=== PATIENT | female | born 1960 | race Caucasian/White ===

== ENCOUNTER 2023-03-07 20:37 | Inpatient (IN) ==
[2023-03-07] MEDS ORDERED: SODIUM CHLORIDE 0.9% 1000ML 1,000 ML IV SCH (20:45)
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
[2023-03-07] MEDS ORDERED: ACETAMINOPHEN 1,000 MG/100 ML VIAL IV STA (20:59)
[2023-03-07 21:21] LABS: HCO3 VBG 29 mmol/L; PCO2 VBG 46 mmHg (38-50); PO2 VBG 57 mmHg
[2023-03-07] MEDS ORDERED: AZITHROMYCIN 500 MG in DEXTROSE 5% 250 ML IV ONE (21:50)
[2023-03-07] MEDS ORDERED: cefTRIAXone SODIUM 2,000 MG/70 ML BAG IV STA (21:50)
[2023-03-07 21:59] LABS: Albumin Level 3.5 gm/dl (3.4-5.0); BUN Creatinine Ratio 15.8 (10-20); Bilirubin Direct 0.3 mg/dl (0-0.2); Bilirubin,Total 0.9 mg/dl (0.2-1.0); Creatinine Clr Calc Pharmacy 60.8 ml/min; Est GFR (African American) 73.9 ml/min; Est GFR (Non-African American) 63.7 ml/min; Magnesium 1.8 mg/dl (1.7-2.4); Potassium 4.1 mmol/L (3.5-5.1); Total Protein 7.5 gm/dl (6.0-8.3)
[2023-03-07 22:02] LABS: Troponin I High Sensitivity 17.8 pg/ml (0-14)
[2023-03-07 22:11] LABS: INR 1.1 (0.9-1.1); Partial Thromboplastin Ratio 0.8; Partial Thromboplastin Time 22.9 Seconds (21.0-31.0); Prothrombin Time 11.5 Seconds (9.0-12.0)
[2023-03-07 22:17] LABS: Basophils # (auto) 0.07 K/uL (0-0.2); Basophils % (auto) 0.4 %; Hematocrit (blood only) 52.5 % (37.0-47.0); Hemoglobin 17.3 g/dl (12.0-16.0); Immature Granulocytes # (auto) 0.16 K/uL (0.01-0.20); Immature Granulocytes % (auto) 0.8 %; Lymphocytes # (auto) 2.03 K/uL (1.2-3.4); Lymphocytes % (auto) 10.5 %; Mean Corpuscular Hemoglobin 30.6 pg (25.0-34.0); Mean Corpuscular Volume 92.9 fL (80.0-100.0); Mean Platelet Volume 10.7 fL (9.4-12.4); Monocytes # (auto) 1.31 K/uL (0.11-0.59); Monocytes % (auto) 6.8 %; Neutrophils # (auto) 15.73 K/uL (1.40-6.50); Neutrophils % (auto) 81.5 %; Platelet Count 216 K/uL (130-400); RDW Coefficient of Variation 13.6 % (11.5-14.5); RDW Standard Deviation 46.4 fL (36.4-46.3); Red Blood Count 5.65 M/uL (4.20-5.40)
[2023-03-07 22:22] LABS: Appearance Urine Cloudy (Clear); Bacteria Urine Automated 4+ (Negative); Bilirubin Urine Negative (Negative); Blood Urine 2+ (Negative); Cast Urine Automated 0 /lpf (0-5); Color Urine Yellow; Epithelial Cell Urine Auto >30 /lpf (0-5); Glucose Urine UA 2+ (Negative); Ketones Urine 1+ (Negative); Leukocyte Esterase Urine 1+ (Negative); Nitrite Urine Positive (Negative); Protein Urine 2+ (Negative); Urobilinogen Urine Negative (Negative)
[2023-03-07] MEDS ORDERED: IBUPROFEN 800 MG TAB PO STA (22:25)
[2023-03-07] MEDS ORDERED: fentaNYL citrate PF 100 MCG/2 ML VIAL IV STA (22:25)
[2023-03-07] MEDS ORDERED: methylPREDNISolone 125 MG/2 ML VIAL IV STA (22:50)
[2023-03-07] MEDS ORDERED: methylPREDNISolone 20 MG in SYRINGE 0 ML IV STA (22:50)
[2023-03-07] MEDS: MAGNESIUM SULFATE / D5W 1 GM/100 ML BAG IV SCH (23:34)
[2023-03-07] MEDS ORDERED: FUROSEMIDE INJ 20 MG/2 ML VIAL IV ONE (23:55)
[2023-03-07] MEDS ORDERED: ALBUMIN 25% 25 GM/100 ML VIAL IV ONE (23:55)
[2023-03-08] MEDS ORDERED: CEFEPIME 2,000 MG/20 ML VIAL IV STA (00:41)
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
[2023-03-08] MEDS ORDERED: PROMETHAZINE HCL 12.5 MG in SODIUM CHLORIDE 0.9% 50 ML IV PRN (00:48)
[2023-03-08] MEDS: NICOTINE 7 MG/24 HR TDSY TD SCH (01:21)
[2023-03-08] MEDS ORDERED: GLUCAGON FOR INJ 1 MG VIAL SQ PRN (02:41)
[2023-03-08] MEDS ORDERED: CARBOHYDRATES FOR HYPOGLYCEMIA PO PRN (02:41)
[2023-03-08] MEDS ORDERED: INSULIN ASPART PER UNIT CHARGE SC SCH ×2 (02:41→08:00)
[2023-03-08] MEDS ORDERED: GLUCOSE 40% GEL 15 GM TUBE PO PRN (02:41)
[2023-03-08] MEDS ORDERED: XOPENEX/ATROVENT 1.25mg/0.5MG NEB COMBO NEB SCH (02:41)
[2023-03-08] MEDS ORDERED: GLUCOSE 10 TAB/TUBE PO PRN (02:41)
[2023-03-08] MEDS ORDERED: DEXTROSE 50% 50 ML SYRINGE IV PRN (02:41)
[2023-03-08] MEDS ORDERED: ACETAMINOPHEN 325 MG TAB PO PRN (02:41)
[2023-03-08] MEDS: MAGNESIUM SULFATE / D5W 1 GM/100 ML BAG IV SCH (02:51)
[2023-03-08] MEDS: IPRATROPIUM BROMIDE NEB SOLN 0.02% 2.5 ML VIAL INH SCH ×2 (03:08→08:04)
[2023-03-08] MEDS: LEVALBUTEROL 1.25 MG/3 ML NEB NEB SCH ×2 (03:08→08:04)
--- NOTE | 2023-03-08 03:19 | CT Scan Report ---
Exam(s): CT HEAD Without Contrast EXAM: CT Head Without Intravenous Contrast CLINICAL HISTORY: Reason for exam: barillas. TECHNIQUE: Axial computed tomography images of the head/brain without intravenous contrast. CTDI is 27.94 mGy and DLP is 1461.17 mGy-cm. Automated exposure control was utilized for the study. A dose lowering technique was utilized adhering to the principles of ALARA. COMPARISON: 03/20/2012 FINDINGS: Brain: Minimal periventricular white matter changes, related to microangiopathy. No hemorrhage. Ventricles: Unremarkable. No ventriculomegaly. Bones/joints: Unremarkable. No acute fracture. Soft tissues: Unremarkable. Sinuses: Unremarkable as visualized. No acute sinusitis. Mastoid air cells: Unremarkable as visualized. No mastoid effusion. IMPRESSION: Minimal periventricular white matter changes, related to microangiopathy. Electronically signed by: Nikunj Mariano M.D. 03/08/23 03:17 AM
--- NOTE | 2023-03-08 03:26 | CT Scan Report ---
Exam(s): CT ABDOMEN + PELVIS Without Contrast EXAM: CT Abdomen and Pelvis Without Intravenous Contrast CLINICAL HISTORY: Reason for exam: r abd/flank pain. TECHNIQUE: Axial computed tomography images of the abdomen and pelvis without intravenous contrast. CTDI is 36.43 mGy and DLP is 546.36 mGy-cm. Automated exposure control was utilized for the study. A dose lowering technique was utilized adhering to the principles of ALARA. COMPARISON: 04/13/2021 FINDINGS: Lung bases: Unremarkable. No mass. No consolidation. Mediastinum: Moderate hiatal hernia. ABDOMEN: Liver: Unremarkable. Gallbladder and bile ducts: Status post cholecystectomy. No ductal dilation. Pancreas: Unremarkable. No ductal dilation. Spleen: Unremarkable. No splenomegaly. Adrenals: Unremarkable. No mass. Kidneys and ureters: Right perinephric stranding with mild right hydronephrosis and periureteral inflammation consistent with either a recently passed stone or pyelonephritis. Mild left hydronephrosis and hydroureter to the level of the bladder. No renal or ureteral calculi are identified. Stomach and bowel: Unremarkable. No obstruction. No mucosal thickening. PELVIS: Appendix: No findings to suggest acute appendicitis. Bladder: Unremarkable. No stones. Reproductive: Unremarkable as visualized. ABDOMEN and PELVIS: Intraperitoneal space: Unremarkable. No free air. No significant fluid collection. Bones/joints: No acute fracture. No dislocation. Soft tissues: Unremarkable. Vasculature: Unremarkable. No abdominal aortic aneurysm. Lymph nodes: Unremarkable. No enlarged lymph nodes. IMPRESSION: 1. Right perinephric stranding with mild right hydronephrosis and periureteral inflammation consistent with either a recently passed stone or pyelonephritis. 2. Mild left hydronephrosis and hydroureter to the level of the bladder. Electronically signed by: Nikunj Mariano M.D. 03/08/23 03:25 AM
[2023-03-08] MEDS: INSULIN ASPART PER UNIT CHARGE SC SCH ×7 (05:11→21:03)
[2023-03-08] MEDS ORDERED: LANTUS PER UNIT CHARGE SQ SCH ×2 (05:45→09:00)
[2023-03-08 05:46] LABS: Hematocrit (blood only) 45.8 % (37.0-47.0); Hemoglobin 15.1 g/dl (12.0-16.0); Mean Corpuscular Hemoglobin 30.6 pg (25.0-34.0); Mean Corpuscular Volume 92.9 fL (80.0-100.0); Mean Platelet Volume 10.3 fL (9.4-12.4); Platelet Count 187 K/uL (130-400); RDW Coefficient of Variation 13.6 % (11.5-14.5); RDW Standard Deviation 46.7 fL (36.4-46.3); Red Blood Count 4.93 M/uL (4.20-5.40); White Blood Count 17.42 K/ul (4.8-10.8)
[2023-03-08 06:06] LABS: BUN Creatinine Ratio 17.7 (10-20); Calcium 8.2 mg/dl (8.6-10.3); Creatinine Clr Calc Pharmacy 51.1 ml/min; Est GFR (African American) 59.9 ml/min; Est GFR (Non-African American) 51.7 ml/min; Potassium 4.2 mmol/L (3.5-5.1)
[2023-03-08 06:08] LABS: Basophils # (auto) 0.03 K/uL (0-0.2); Basophils % (auto) 0.2 %; Immature Granulocytes # (auto) 0.14 K/uL (0.01-0.20); Immature Granulocytes % (auto) 0.8 %; Lymphocytes # (auto) 0.76 K/uL (1.2-3.4); Lymphocytes % (auto) 4.4 %; Monocytes # (auto) 0.51 K/uL (0.11-0.59); Monocytes % (auto) 2.9 %; Neutrophils # (auto) 15.98 K/uL (1.40-6.50); Neutrophils % (auto) 91.7 %
[2023-03-08] MEDS ORDERED: PHARMACY GLYCEMIC MGMT CONSULT PRN (07:41)
--- NOTE | 2023-03-08 08:01 | XRay Report ---
SINGLE VIEW CHEST CLINICAL HISTORY: Sepsis. FINDINGS: 2 AP, portable, upright chest radiographs are compared to study dated 04/13/2021. The heart is enlarged noting atherosclerotic calcification of the thoracic aorta. There is pulmonary vascular c ongestion. Scarring/atelectasis is noted at the lung bases. The lungs and pleural spaces are clear. N o pneumothorax is seen. The skeletal structures are osteopenic. The bony thorax is grossly intact. Fu mahogany hardware is noted in the lower cervical spine. IMPRESSION: Cardiomegaly with pulmonary vascular congestion. ACT 112: Negative or not required by law. Electronically signed by: Abraham Acevedo M.D. 03/08/2023 7:59 AM
[2023-03-08] MEDS ORDERED: PANTOprazole 40 MG TAB PO SCH (09:00)
[2023-03-08] MEDS ORDERED: predniSONE 20 MG TAB PO SCH (09:00)
[2023-03-08] MEDS: ASPIRIN 81 MG ECTAB PO SCH (09:19)
[2023-03-08] MEDS: ATORVASTATIN 40 MG TAB PO SCH (09:24)
[2023-03-08] MEDS: DOXYCYCLINE HYCLATE 100 MG CAP PO SCH ×2 (09:25→21:03)
[2023-03-08] MEDS: ENOXAPARIN INJ 40 MG/0.4 ML SYR SQ SCH (09:27)
[2023-03-08 09:59] LABS: A calco-baum cmplx NotReported Not Detected (NotDetected); Bact fragilis Not Reported Not Detected (NotDetected); C auris Not Reported Not Detected (NotDetected); CTX-M Resistant Gene Not Detected (NotDetected); Calbicans Not Reported Not Detected (NotDetected); Candida glabrata Not Reported Not Detected (NotDetected); Candida krusei Not Reported Not Detected (NotDetected); Cneoformans/gatti Not Reported Not Detected (NotDetected); Cparapsilosis Not Reported Not Detected (NotDetected); Ctropicalis Not Reported Not Detected (NotDetected); E cloacae compx Not Reported Not Detected (NotDetected); Efaecalis Not Reported Not Detected (NotDetected); Efaecium Not Reported Not Detected (NotDetected); Enterobacterales DETECTED (NotDetected); Enterobacterales Not Reported DETECTED (NotDetected); Escherichia coli Not Reported DETECTED (NotDetected); H influenzae Not Reported Not Detected (NotDetected); IMP Resistant Gene Not Detected (NotDetected); K aerogenes Not Reported Not Detected (NotDetected); KPC Resistant Gene Not Detected (NotDetected); Koxytoca Not Reported Not Detected (NotDetected); Kpneumoniae grp Not Reported Not Detected (NotDetected); Lmonocyt Not Reported Not Detected (NotDetected); N meningitidis Not Reported Not Detected (NotDetected); NDM Resistant Gene Not Detected (NotDetected); OXA 48 Like Resistant Gene Not Detected (NotDetected); P aeruginosa Not Reported Not Detected (NotDetected); Proteus spp Not Reported Not Detected (NotDetected); Salmonella spp Not Reported Not Detected (NotDetected); Smarcescens Not Reported Not Detected (NotDetected); Staph lugdunensis Not Reported Not Detected (NotDetected); Staph spp. Not Reported Not Detected (NotDetected); Staphaureus Not Reported Not Detected (NotDetected); Staphepi Not Reported Not Detected (NotDetected); Stenmaltophilia Not Reported Not Detected (NotDetected); Strep agal(GrpB) Not Reported Not Detected (NotDetected); Strep pneum Not Reported Not Detected (NotDetected); Strep pyog (GrpA) Not Reported Not Detected (NotDetected); Strep spp Not Reported Not Detected (NotDetected); VIM Resistant Gene Not Detected (NotDetected); mcr-1 Colistin Resistant Gene Not Detected (NotDetected)
[2023-03-08] MEDS: CEFEPIME 2,000 MG in SYRINGE 0 ML IV SCH ×2 (10:56→18:41)
--- NOTE | 2023-03-08 11:01 | Pharmacy Report ---
Pharmacy Glycemic Short Note 2 - Date of Service March 08, 2023 - Glycemic Short BSG Results (Last 24 hours): 03/07/23 03/08/23 03/08/23 21:00 05:29 05:30 Glucose 151 H POC Glucose 412 H* 387 H* 03/08/23 03/08/23 03/08/23 05:32 07:31 07:32 Glucose 423 H* POC Glucose 325 H* 349 H* OUTPATIENT ANTIDIABETIC REGIMEN: * Lantus 44 units Qam, Humalog 7 units with breakfast and dinner, 12 units with lunch * A1c 8.5% - per provider notes 02/2023 ASSESSMENT: * 62 year old admitted with worsening shortness of breath. Pharmacy consulted for glycemic management. BSGs in the upper 300s this AM. Had received a one time dose of solumedrol last evening. Prednisone ordered for this AM, discontinued by provider * Received 60 units of basal insulin this AM by provider's order. Plan to start novolog at lunch time based upon stress of 2 dosing. Anticipate BSGs to improve throughout the day with no further steroids. PLAN FOR INPATIENT GLYCEMIC CONTROL: * Hold outpatient oral diabetes medications * Basal insulin * Lantus 45 units daily - start 03/09 (home dose) * Bolus insulin * NovoLog per scale ACHS or Q6hrs while NPO * Goal Range: Low 110 mg/dL - High 140 mg/dL * Correction Factor: 25 mg/dL/unit * Nutritional / Prandial insulin per carb ratio of 1 unit per 9 grams CHO consumed
[2023-03-08] MEDS ORDERED: INSULIN HUMAN REGULAR PER UNIT 6 UNITS in SYRINGE 5.94 ML IV ONE (12:00)
--- NOTE | 2023-03-08 12:17 | Electrocardiogram Report ---
Test Reason : Blood Pressure : / mmHG Vent. Rate : 118 BPM Atrial Rate : 118 BPM P-R Int : 146 ms QRS Dur : 078 ms QT Int : 310 ms P-R-T Axes : 071 235 046 degrees QTc Int : 434 ms Sinus tachycardia Right superior axis deviation Abnormal ECG When compared with ECG of 11-APR-2019 12:13, No significant change was found Confirmed by Dustin Velazquez ([id number]) on 03/08/2023 12:16:50 PM Referred By: REFERRED SELF Confirmed By:Dustin Velazquez
--- NOTE | 2023-03-08 15:31 | Hospitalist Progress Note ---
Date of Service March 08, 2023 Assessment & Plan (1) Sepsis: Plan: Secondary to UTI, pyelonephritis, bacteremia-E. coli Urine culture: Gram-negative bacilli Blood cultures: Gram-negative bacilli Serologies positive for E. coli CT abdomen pelvis: 1. Right perinephric stranding with mild right hydronephrosis and periureteral inflammation consistent with either a recently passed stone or pyelonephritis. 2. Mild left hydronephrosis and hydroureter to the level of the bladder. Continue IV cefepime Follow-up cultures hypertension, BP stable hyperlipidemia, on statin Rx DM 2 insulin requiring, suboptimal control as of recent outpatient hemoglobin A1c of 8.5 this month Pharmacy glycemic control service consulted GERD/Aguirre's esophagus, stable on regimen ongoing tobacco abuse DVT prophylaxis Lovenox Disposition Anticipate discharge to home when medically stable Admission and Anticipated Discharge Date Admission Date: March 08, 2023 Subjective Follow-up for sepsis, right pyelonephritis, UTI, etc. Seen resting in bed, sitting up, not in distress, comfortable, pleasant States she still feels somewhat improved today compared to yesterday Still has some weakness, lower abdominal discomfort, right sided back discomfort No fevers or chills, nausea/vomiting No any other symptoms Review of Systems Review of Systems: all noted and negative except for above Physical Exam Physical Exam: General- oriented x 3, not in distress, speaks in sentences with no effort or accessory muscle use Eyes- anicteric Neck- no JVD Lungs- clear breath sounds bilaterally, no crackles/wheezing Heart- normal rate, regular rhythm; no murmurs Abdomen- normal bowel sounds, nondistended, soft (+) R CVA tenderness Extremities- no pretibial edema, no calf tenderness Neuro- alert, oriented x 3; no gross focal neurologic deficits Skin- warm & dry Results & Data Results & Data Vital Signs (Past 12 Hours) Vital Signs Temp Pulse Resp BP Pulse Ox O2 Del Method O2 Flow Rate 03/08/23 12:25 36.9 C 83 20 103/48 L 92 Nasal Cannula 2 03/08/23 08:00 Nasal Cannula 3 03/08/23 08:04 36.6 C 84 18 109/65 92 Nasal Cannula 3 03/08/23 08:04 87 18 94 Nasal Cannula 3 03/08/23 06:10 36.8 C 88 16 138/81 92 Nasal Cannula 3 all noted and reviewed including below
[2023-03-08] MEDS ORDERED: IBUPROFEN 200 MG TAB PO STA (16:52)
[2023-03-08] MEDS: PANTOprazole 40 MG TAB PO SCH (17:50)
[2023-03-08 19:36] LABS: Adenovirus PCR Not Detected (NotDetected); Bordetella parapertussis PCR Not Detected (NotDetected); Bordetella pertussis PCR Not Detected (NotDetected); Chlamydia pneumoniae PCR Not Detected (NotDetected); Coronavirus 229E PCR Not Detected (NotDetected); Coronavirus CoV-2 (COVID19)PCR Not Detected (NotDetected); Coronavirus HKU1 PCR Not Detected (NotDetected); Coronavirus NL63 PCR Not Detected (NotDetected); Coronavirus OC43PCR Not Detected (NotDetected); Human Metapneumovirus PCR Not Detected (NotDetected); Influenza A PCR Not Detected (NotDetected); Influenza B PCR Not Detected (NotDetected); Mycoplasma pneumoniae PCR Not Detected (NotDetected); Parainfluenza Virus 1 PCR Not Detected (NotDetected); Parainfluenza Virus 2 PCR Not Detected (NotDetected); Parainfluenza Virus 3 PCR Not Detected (NotDetected); Parainfluenza Virus 4 PCR Not Detected (NotDetected); Respiratory Syncytial VirusPCR Not Detected (NotDetected); Rhinovirus/Enterovirus PCR Not Detected (NotDetected)
[2023-03-08] MEDS: oxyCODONE HCL IR 5 MG TAB (IMMEDIATE RELEASE) PO PRN (21:06)
[2023-03-09] MEDS ORDERED: INSULIN ASPART PER UNIT CHARGE SC SCH
[2023-03-09] MEDS: oxyCODONE HCL IR 5 MG TAB (IMMEDIATE RELEASE) PO PRN ×2 (01:27→21:35)
[2023-03-09] MEDS: CEFEPIME 2,000 MG in SYRINGE 0 ML IV SCH ×2 (01:28→10:31)
[2023-03-09] MEDS: ASPIRIN 81 MG ECTAB PO SCH (08:30)
[2023-03-09] MEDS: PANTOprazole 40 MG TAB PO SCH ×2 (08:30→17:12)
[2023-03-09] MEDS: DOXYCYCLINE HYCLATE 100 MG CAP PO SCH ×2 (08:30→21:36)
[2023-03-09] MEDS: ATORVASTATIN 40 MG TAB PO SCH (08:30)
[2023-03-09] MEDS: ENOXAPARIN INJ 40 MG/0.4 ML SYR SQ SCH (08:31)
[2023-03-09 08:32] LABS: Basophils # (auto) 0.06 K/uL (0-0.2); Basophils % (auto) 0.4 %; Eosinophils # (auto) 0.09 K/uL (0-0.50); Eosinophils % (auto) 0.6 %; Hematocrit (blood only) 45.8 % (37.0-47.0); Hemoglobin 15.3 g/dl (12.0-16.0); Immature Granulocytes # (auto) 0.06 K/uL (0.01-0.20); Immature Granulocytes % (auto) 0.4 %; Lymphocytes # (auto) 1.73 K/uL (1.2-3.4); Lymphocytes % (auto) 10.7 %; Mean Corpuscular Hemoglobin 30.4 pg (25.0-34.0); Mean Corpuscular Hgb Conc 33.4 g/dL (32.0-36.0); Mean Corpuscular Volume 91.1 fL (80.0-100.0); Mean Platelet Volume 10.1 fL (9.4-12.4); Monocytes # (auto) 1.74 K/uL (0.11-0.59); Monocytes % (auto) 10.8 %; Neutrophils # (auto) 12.43 K/uL (1.40-6.50); Neutrophils % (auto) 77.1 %; Platelet Count 229 K/uL (130-400); RDW Coefficient of Variation 13.6 % (11.5-14.5); RDW Standard Deviation 45.6 fL (36.4-46.3); Red Blood Count 5.03 M/uL (4.20-5.40); White Blood Count 16.11 K/ul (4.8-10.8)
[2023-03-09] MEDS: NICOTINE 7 MG/24 HR TDSY TD SCH (08:32)
[2023-03-09] MEDS: INSULIN ASPART PER UNIT CHARGE SC SCH ×4 (08:32→21:32)
[2023-03-09 08:44] LABS: BUN Creatinine Ratio 27.6 (10-20); Calcium 8.9 mg/dl (8.6-10.3); Est GFR (African American) 82.2 ml/min; Est GFR (Non-African American) 70.9 ml/min
[2023-03-09] MEDS ORDERED: LANTUS PER UNIT CHARGE SQ SCH (09:00)
[2023-03-09] MEDS ORDERED: FUROSEMIDE INJ 20 MG/2 ML VIAL IV ONE (11:45)
--- NOTE | 2023-03-09 11:52 | Hospitalist Progress Note ---
Date of Service March 09, 2023 Assessment & Plan (1) Sepsis: Plan: -Present on admission with fever, leukocytosis (2) Acute hypoxemic respiratory failure: Plan: -77% on RA on presentation. Currently still requiring 2L NC -wean oxygen as tolerated -CXR shows pulmonary vascular congestion. Patient with coarse cough. Continue doxycycline for coverage of bronchitis. Will give 1 dose lasix 20mg IV once. On exam does not appear overloaded (3) E. coli UTI: Plan: CT abdomen pelvis: 1. Right perinephric stranding with mild right hydronephrosis and periureteral inflammation consistent with either a recently passed stone or pyelonephritis. 2. Mild left hydronephrosis and hydroureter to the level of the bladder. -On cefepime--will reduce to ceftriaxone (4) E coli bacteremia: Plan: -already on antibiotics. Will need 2 week course Plan hypertension, BP stable hyperlipidemia, on statin Rx DM 2 insulin requiring, suboptimal control as of recent outpatient hemoglobin A1c of 8.5 this month Pharmacy glycemic control service consulted GERD/Aguirre's esophagus, stable on regimen ongoing tobacco abuse nicotine patch ordered. Will ask career services officer to evaluate for cost of ni cotine patches DVT prophylaxis Lovenox Disposition Anticipate discharge to home when medically stable, likely in 2 days Admission and Anticipated Discharge Date Admission Date: March 08, 2023 Subjective Still with coarse cough, on 2L NC Reports constipation, hard stool Woke up with headache Discussed her ongoing smoking cessation efforts. She is motivated to quit but cant afford her nicotine patches Review of Systems Review of Systems: as above Physical Exam Physical Exam: Appears older than stated age, no acute distress Respiratory: coarse cough, no wheezing/rhonchi/rales Cardiovascular: regular rate and rhythm, no murmurs/rubs/gallops Gastrointestinal (Abdomen): soft, non tender, non distended Musculoskeletal: no edema Neurologic: awake, alert, spontaneously moving extremities Results & Data Results & Data Vital Signs (Past 12 Hours) Vital Signs Temp Pulse Resp BP Pulse Ox O2 Del Method O2 Flow Rate 03/09/23 08:00 Nasal Cannula 2 03/09/23 07:23 37.1 C 96 H 18 116/65 92 Nasal Cannula 3 03/09/23 03:34 36.8 C 70 20 108/70 95 Nasal Cannula 2
[2023-03-09] MEDS: DOCUSATE SODIUM 100 MG CAP PO SCH ×2 (12:31→21:36)
[2023-03-09] MEDS: LANTUS PER UNIT CHARGE SC SCH (12:46)
--- NOTE | 2023-03-09 13:09 | Pharmacy Report ---
Pharmacy Glycemic Short Note 2 - Date of Service March 09, 2023 - Glycemic Short BSG Results (Last 24 hours): 03/08/23 03/08/23 03/08/23 14:45 16:38 20:25 Glucose POC Glucose 242 H 235 H 107 H 03/09/23 03/09/23 03/09/23 00:14 05:31 05:33 Glucose POC Glucose 184 H 65 L* 67 L* 03/09/23 03/09/23 03/09/23 05:52 07:24 07:48 Glucose 199 H POC Glucose 73 219 H 03/09/23 11:45 Glucose POC Glucose 110 H OUTPATIENT ANTIDIABETIC REGIMEN: * Lantus 44 units Qam, Humalog 7 units with breakfast and dinner, 12 units with lunch * A1c 8.5% - per provider notes 02/2023 ASSESSMENT: 03/09/23 * BSGs yesterday were [phone] mg/dL. Fasting this AM was 65 mg/dL. * Patient received 106 units of insulin (60 units of basal and 46 units of bolus). * Due to low BSG, held Lantus until lunch to ensure BSG rebound. Lunch was 110 mg/dL. * Will start with half dose of Lantus or 30 units daily. * Loosen Novolog since steroid effects have decreased significantly. This aligns to weight-based stress of 2 BACKGROUND * 62 year old admitted with worsening shortness of breath. Pharmacy consulted for glycemic management. BSGs in the upper 300s this AM. Had received a one time dose of solumedrol last evening. Prednisone ordered for this AM, discontinued by provider * Received 60 units of basal insulin this AM by provider's order. Plan to start novolog at lunch time based upon stress of 2 dosing. Anticipate BSGs to improve throughout the day with no further steroids. PLAN FOR INPATIENT GLYCEMIC CONTROL: * Hold outpatient oral diabetes medications * Basal insulin * Lantus 30 units daily * Bolus insulin * NovoLog per scale ACHS or Q6hrs while NPO * Goal Range: Low 110 mg/dL - High 140 mg/dL * Correction Factor: 25 mg/dL/unit * Nutritional / Prandial insulin per carb ratio of 1 unit per 8 grams CHO consumed
[2023-03-09] MEDS: cefTRIAXone SODIUM 2,000 MG in DEXTROSE 5% 50 ML IV SCH (17:12)
[2023-03-10 07:04] LABS: Basophils # (auto) 0.07 K/uL (0-0.2); Basophils % (auto) 0.7 %; Eosinophils # (auto) 0.26 K/uL (0-0.50); Eosinophils % (auto) 2.7 %; Hematocrit (blood only) 50.9 % (37.0-47.0); Hemoglobin 16.7 g/dl (12.0-16.0); Immature Granulocytes # (auto) 0.04 K/uL (0.01-0.20); Immature Granulocytes % (auto) 0.4 %; Lymphocytes % (auto) 27.1 %; Mean Corpuscular Hemoglobin 30.5 pg (25.0-34.0); Mean Corpuscular Hgb Conc 32.8 g/dL (32.0-36.0); Mean Corpuscular Volume 92.9 fL (80.0-100.0); Mean Platelet Volume 10.3 fL (9.4-12.4); Monocytes # (auto) 1.27 K/uL (0.11-0.59); Monocytes % (auto) 13.2 %; Neutrophils # (auto) 5.36 K/uL (1.40-6.50); Neutrophils % (auto) 55.9 %; Platelet Count 235 K/uL (130-400); RDW Coefficient of Variation 13.6 % (11.5-14.5); RDW Standard Deviation 46.5 fL (36.4-46.3); Red Blood Count 5.48 M/uL (4.20-5.40)
[2023-03-10 07:24] LABS: BUN Creatinine Ratio 22.2 (10-20); Calcium 9.4 mg/dl (8.6-10.3); Creatinine Clr Calc Pharmacy 59.6 ml/min; Est GFR (African American) 70.3 ml/min; Est GFR (Non-African American) 60.6 ml/min; Potassium 4.2 mmol/L (3.5-5.1)
[2023-03-10] MEDS: ENOXAPARIN INJ 40 MG/0.4 ML SYR SQ SCH (07:49)
[2023-03-10] MEDS: DOXYCYCLINE HYCLATE 100 MG CAP PO SCH ×2 (07:49→20:45)
[2023-03-10] MEDS: DOCUSATE SODIUM 100 MG CAP PO SCH ×2 (07:50→20:45)
[2023-03-10] MEDS: PANTOprazole 40 MG TAB PO SCH ×2 (07:50→17:27)
[2023-03-10] MEDS: SACCHAROMYCES BOULARDII 250 MG CAP PO SCH (07:50)
[2023-03-10] MEDS: ASPIRIN 81 MG ECTAB PO SCH (07:50)
[2023-03-10] MEDS: ATORVASTATIN 40 MG TAB PO SCH (07:50)
[2023-03-10] MEDS: NICOTINE 7 MG/24 HR TDSY TD SCH (07:51)
[2023-03-10] MEDS: INSULIN ASPART PER UNIT CHARGE SC SCH ×4 (07:53→20:45)
[2023-03-10] MEDS: LANTUS PER UNIT CHARGE SC SCH (07:53)
--- NOTE | 2023-03-10 15:27 | Hospitalist Progress Note ---
Date of Service March 10, 2023 Assessment & Plan (1) Sepsis: Plan: -Present on admission with fever, leukocytosis (2) Acute hypoxemic respiratory failure: Plan: -77% on RA on presentation. Currently still requiring 2L NC -wean oxygen as tolerated -CXR shows pulmonary vascular congestion. Patient with coarse cough. Continue doxycycline for coverage of bronchitis. s/p 1 dose lasix 20mg IV 03/09. (3) E. coli UTI: Plan: CT abdomen pelvis: 1. Right perinephric stranding with mild right hydronephrosis and periureteral inflammation consistent with either a recently passed stone or pyelonephritis. 2. Mild left hydronephrosis and hydroureter to the level of the bladder. -Initially placed on cefepime--now on ceftriaxone. (4) E coli bacteremia: Plan: -already on antibiotics. Plan hypertension, BP stable hyperlipidemia, on statin Rx DM 2 insulin requiring, suboptimal control as of recent outpatient hemoglobin A1c of 8.5 this month Pharmacy glycemic control service consulted GERD/Aguirre's esophagus, stable on regimen ongoing tobacco abuse nicotine patch ordered. Will ask critical care educator to evaluate for cost of nicotine patches DVT prophylaxis Lovenox Disposition Anticipate discharge to home when medically stable Admission and Anticipated Discharge Date Admission Date: March 08, 2023 Subjective Feels well. Still on 2L NC. Less coughing Ambulating in room with no difficulty Review of Systems Review of Systems: as above Physical Exam Physical Exam: Appears well, pleasant and comfortable Respiratory: Breathing comfortably on NC, no wheezing/rhonchi/rales Cardiovascular: regular rate and rhythm, no murmurs/rubs Gastrointestinal (Abdomen): soft, non tender Musculoskeletal: No edema, no cyanosis Neurologic: awake, alert, spontaneously moving extremities Results & Data Results & Data Vital Signs (Past 12 Hours) Vital Signs Temp Pulse Resp BP Pulse Ox O2 Del Method O2 Flow Rate 03/10/23 11:00 36.6 C 74 16 111/68 95 Nasal Cannula 2 03/10/23 08:00 Nasal Cannula 2 03/10/23 07:17 37.1 C 74 18 103/65 96 Nasal Cannula 2 03/10/23 04:16 37.2 C 72 18 102/63 91 Nasal Cannula 2
[2023-03-10] MEDS: cefTRIAXone SODIUM 2,000 MG in DEXTROSE 5% 50 ML IV SCH (17:21)
[2023-03-11] MEDS ORDERED: INSULIN ASPART PER UNIT CHARGE SC STA (01:09)
[2023-03-11 07:02] LABS: Basophils # (auto) 0.08 K/uL (0-0.2); Basophils % (auto) 0.7 %; Eosinophils # (auto) 0.29 K/uL (0-0.50); Eosinophils % (auto) 2.7 %; Hematocrit (blood only) 48.9 % (37.0-47.0); Hemoglobin 16.4 g/dl (12.0-16.0); Immature Granulocytes # (auto) 0.07 K/uL (0.01-0.20); Immature Granulocytes % (auto) 0.6 %; Lymphocytes # (auto) 2.64 K/uL (1.2-3.4); Lymphocytes % (auto) 24.2 %; Mean Corpuscular Hemoglobin 30.1 pg (25.0-34.0); Mean Corpuscular Hgb Conc 33.5 g/dL (32.0-36.0); Mean Corpuscular Volume 89.7 fL (80.0-100.0); Mean Platelet Volume 10.3 fL (9.4-12.4); Monocytes # (auto) 1.44 K/uL (0.11-0.59); Monocytes % (auto) 13.2 %; Neutrophils # (auto) 6.37 K/uL (1.40-6.50); Neutrophils % (auto) 58.6 %; Platelet Count 244 K/uL (130-400); RDW Coefficient of Variation 13.2 % (11.5-14.5); RDW Standard Deviation 43.1 fL (36.4-46.3); Red Blood Count 5.45 M/uL (4.20-5.40); White Blood Count 10.89 K/ul (4.8-10.8)
[2023-03-11 07:24] LABS: BUN Creatinine Ratio 20.6 (10-20); Calcium 9.3 mg/dl (8.6-10.3); Creatinine Clr Calc Pharmacy 86.4 ml/min; Est GFR (African American) 107.9 ml/min; Est GFR (Non-African American) 93.1 ml/min; Potassium 3.8 mmol/L (3.5-5.1)
[2023-03-11] MEDS: SACCHAROMYCES BOULARDII 250 MG CAP PO SCH (08:04)
[2023-03-11] MEDS: ENOXAPARIN INJ 40 MG/0.4 ML SYR SQ SCH (08:04)
[2023-03-11] MEDS: ASPIRIN 81 MG ECTAB PO SCH (08:04)
[2023-03-11] MEDS: DOCUSATE SODIUM 100 MG CAP PO SCH ×2 (08:04→21:11)
[2023-03-11] MEDS: DOXYCYCLINE HYCLATE 100 MG CAP PO SCH ×2 (08:04→21:11)
[2023-03-11] MEDS: ATORVASTATIN 40 MG TAB PO SCH (08:04)
[2023-03-11] MEDS: NICOTINE 7 MG/24 HR TDSY TD SCH (08:04)
[2023-03-11] MEDS: INSULIN ASPART PER UNIT CHARGE SC SCH ×4 (08:05→21:10)
[2023-03-11] MEDS: PANTOprazole 40 MG TAB PO SCH ×2 (08:05→17:50)
[2023-03-11] MEDS: LANTUS PER UNIT CHARGE SC SCH (08:05)
--- NOTE | 2023-03-11 12:17 | Pharmacy Report ---
Pharmacy Glycemic Short Note 2 - Date of Service March 11, 2023 - Glycemic Short BSG Results (Last 24 hours): 03/10/23 03/10/23 03/11/23 16:37 20:31 01:01 Glucose POC Glucose 113 H 168 H 259 H 03/11/23 03/11/23 03/11/23 06:21 07:21 11:19 Glucose 144 H POC Glucose 130 H 182 H OUTPATIENT ANTIDIABETIC REGIMEN: * Lantus 44 units SC Qam * Humalog 7 units SC with breakfast and dinner, 12 SC units with lunch * A1c 8.5% - per provider notes 02/2023 ASSESSMENT: 03/11/23: * BSGs have been reasonably well-controlled for the past 48hr. Slight adjustment was made to Novolog parameters yesterday, which appears to be appropriate. * No additional changes required at this time. 03/09/23 * BSGs yesterday were [phone] mg/dL. Fasting this AM was 65 mg/dL. * Patient received 106 units of insulin (60 units of basal and 46 units of bolus). * Due to low BSG, held Lantus until lunch to ensure BSG rebound. Lunch was 110 mg/dL. * Will start with half dose of Lantus or 30 units daily. * Loosen Novolog since steroid effects have decreased significantly. This aligns to weight-based stress of 2 BACKGROUND * 62 year old admitted with worsening shortness of breath. Pharmacy consulted for glycemic management. BSGs in the upper 300s this AM. Had received a one time dose of solumedrol last evening. Prednisone ordered for this AM, discontinued by provider * Received 60 units of basal insulin this AM by provider's order. Plan to start novolog at lunch time based upon stress of 2 dosing. Anticipate BSGs to improve throughout the day with no further steroids. PLAN FOR INPATIENT GLYCEMIC CONTROL: * Basal insulin * Lantus 30 units daily * Bolus insulin * NovoLog per scale ACHS or Q6hrs while NPO * Goal Range: Low 110 mg/dL - High 140 mg/dL * Correction Factor: 30 mg/dL/unit * Nutritional / Prandial insulin per carb ratio of 1 unit per 7 grams CHO consumed
--- NOTE | 2023-03-11 13:42 | Hospitalist Progress Note ---
Date of Service March 11, 2023 Assessment & Plan (1) Sepsis: Plan: -Present on admission with fever, leukocytosis (2) Acute hypoxemic respiratory failure: Plan: -77% on RA on presentation. Currently still requiring 2L NC -CXR shows pulmonary vascular congestion. Patient with coarse cough. Continue doxycycline for coverage of bronchitis. s/p 1 dose lasix 20mg IV 03/09. -Needs home oxygen at discharge. 2 step today. Rx for oxygen left in chart Patient counseled on oxygen safety (3) E. coli UTI: Plan: CT abdomen pelvis: 1. Right perinephric stranding with mild right hydronephrosis and periureteral inflammation consistent with either a recently passed stone or pyelonephritis. 2. Mild left hydronephrosis and hydroureter to the level of the bladder. -Initially placed on cefepime 03/08--now on ceftriaxone. Day 4 total antibiotic (4) E coli bacteremia: Plan: -already on antibiotics. Plan hypertension, BP stable hyperlipidemia, on statin Rx DM 2 insulin requiring, suboptimal control as of recent outpatient hemoglobin A1c of 8.5 this month Pharmacy glycemic control service consulted GERD/Aguirre's esophagus, stable on regimen ongoing tobacco abuse nicotine patch ordered. Will ask health care aide to evaluate for cost of nicotine patches DVT prophylaxis Lovenox Disposition Anticipate discharge to home tomorrow Admission and Anticipated Discharge Date Admission Date: March 08, 2023 Subjective Doing well. Had 2 step and needs home oxygen No fever/chills Motivated to continue smoking cessation Review of Systems Review of Systems: as above Physical Exam Physical Exam: Pleasant, comfortable, no acute distress Respiratory: breathing comfortable, no wheezing/rhonchi Cardiovascular: regular rate and rhythm Gastrointestinal (Abdomen): soft, non tender Musculoskeletal: No edema Neurologic: awake, alert, spontaneously moving extremities Results & Data Results & Data Vital Signs (Past 12 Hours) Vital Signs Temp Pulse Pulse Pulse Resp Resp Resp 03/11/23 12:13 88 85 17 17 03/11/23 11:20 36.8 C 88 19 03/11/23 08:00 03/11/23 07:00 03/11/23 07:19 36.6 C 86 18 03/11/23 04:33 37.1 C 73 18 BP Pulse Ox Pulse Ox Pulse Ox O2 Del Method O2 Flow Rate O2 Flow Rate 03/11/23 12:13 94 86 L 2 03/11/23 11:20 121/83 93 Nasal Cannula 2 03/11/23 08:00 Nasal Cannula 1 03/11/23 07:00 84 L Room Air 03/11/23 07:19 134/73 96 Nasal Cannula 2 03/11/23 04:33 115/68 92 Nasal Cannula 2
[2023-03-11] MEDS: cefTRIAXone SODIUM 2,000 MG in DEXTROSE 5% 50 ML IV SCH (17:18)
[2023-03-12 06:49] LABS: Hemoglobin 15.7 g/dl (12.0-16.0); Mean Corpuscular Hemoglobin 30.3 pg (25.0-34.0); Mean Corpuscular Hgb Conc 33.4 g/dL (32.0-36.0); Mean Corpuscular Volume 90.7 fL (80.0-100.0); Platelet Count 277 K/uL (130-400); RDW Coefficient of Variation 12.9 % (11.5-14.5); RDW Standard Deviation 42.5 fL (36.4-46.3); Red Blood Count 5.18 M/uL (4.20-5.40)
[2023-03-12 07:14] LABS: BUN Creatinine Ratio 19.7 (10-20); Calcium 9.2 mg/dl (8.6-10.3); Creatinine Clr Calc Pharmacy 77.3 ml/min; Est GFR (African American) 96.8 ml/min; Est GFR (Non-African American) 83.5 ml/min; Potassium 3.7 mmol/L (3.5-5.1)
[2023-03-12 07:26] LABS: Basophils # (auto) 0.08 K/uL (0-0.2); Basophils % (auto) 0.7 %; Eosinophils # (auto) 0.36 K/uL (0-0.50); Eosinophils % (auto) 3.2 %; Immature Granulocytes # (auto) 0.07 K/uL (0.01-0.20); Immature Granulocytes % (auto) 0.6 %; Lymphocytes # (auto) 3.51 K/uL (1.2-3.4); Lymphocytes % (auto) 30.8 %; Monocytes # (auto) 1.34 K/uL (0.11-0.59); Monocytes % (auto) 11.8 %; Neutrophils # (auto) 6.04 K/uL (1.40-6.50); Neutrophils % (auto) 52.9 %
[2023-03-12] MEDS: DOXYCYCLINE HYCLATE 100 MG CAP PO SCH (08:33)
[2023-03-12] MEDS: DOCUSATE SODIUM 100 MG CAP PO SCH (08:33)
[2023-03-12] MEDS: PANTOprazole 40 MG TAB PO SCH (08:34)
[2023-03-12] MEDS: SACCHAROMYCES BOULARDII 250 MG CAP PO SCH (08:34)
[2023-03-12] MEDS: ATORVASTATIN 40 MG TAB PO SCH (08:34)
[2023-03-12] MEDS: ASPIRIN 81 MG ECTAB PO SCH (08:34)
[2023-03-12] MEDS: NICOTINE 7 MG/24 HR TDSY TD SCH (08:35)
[2023-03-12] MEDS: ENOXAPARIN INJ 40 MG/0.4 ML SYR SQ SCH (08:36)
[2023-03-12] MEDS: INSULIN ASPART PER UNIT CHARGE SC SCH (08:46)
[2023-03-12] MEDS: LANTUS PER UNIT CHARGE SC SCH (08:47)
--- NOTE | 2023-03-12 16:59 | Electrocardiogram Report ---
Test Reason : Blood Pressure : / mmHG Vent. Rate : 084 BPM Atrial Rate : 084 BPM P-R Int : 160 ms QRS Dur : 082 ms QT Int : 358 ms P-R-T Axes : 070 262 018 degrees QTc Int : 423 ms Normal sinus rhythm Possible Left atrial enlargement Right superior axis deviation Abnormal ECG When compared with ECG of 07-MAR-2023 20:48, No significant change was found Confirmed by Aime Londono ([id number]) on 03/12/2023 4:59:25 PM Referred By: REFERRED SELF Confirmed By:Aime Londono
--- NOTE | 2023-03-13 18:26 | Discharge Summary ---
Date of Service March 12, 2023-- Date of discharge Admission HPI Per Admitting Provider History obtained from patient and records. Medical history significant for hypertension, hyperlipidemia, COPD, HELEN/CPAP intolerance, DM 2 insulin requiring, GERD/Aguirre's esophagus, ongoing tobacco abuse. Last confinement 2011 for intractable back pain secondary to lumbar radiculopathy. Few days history of right achy flank pain Worsening junky cough symptoms productive yellow-white sputum and shortness of breath. Patient not sure about sick contacts. Patient has received COVID-19 vaccination. No chest pain. Achy headache symptoms. Patient denies aspiration but admits to choking from time to time. No fluid retention as per patient. O2 sat 70s upon arrival at the ER. Ceftriaxone, azithromycin, neb treatment administered at the ER. Medical History as above Surgical History : Facial reconstruction, cystoscopy, D&C, cholecystectomy, neck surgery, pelvic fracture surgery, back surgery, JERRY, oophorectomy Family History : DM, heart disease Personal/Social history : 1/4 pack daily, no EtOH intake, disabled Principal Diagnosis E coli UTI (pyelonephritis) E coli bacteremia Sepsis COPD exacerbation Acute hypoxic respiratory failure Discharge Exam Patient was seen on day of discharge. She is feeling well. Back to baseline. We had a lengthy discussion about how she can continue to abstain from smoking CV- regular rate and rhythm, no murmurs/rubs/gallops Pulm- breathing comfortably on 2L NC, no wheezing/rhonchi/rales Extr- no edema Abd- soft Discharge Data Allergies Allergy/AdvReac Type Severity Reaction Status Date / Time shellfish derived Allergy Severe SWELLING Verified 03/07/23 23:00 OF AIRWAY; HIVES empagliflozin AdvReac Diarrhea Verified 03/07/23 23:00 [From Jardiance] Consultations 03/07/23 22:29 ED Decision to Admit Stat Ordered Studies 03/08/23 00:42 CT Abd and Pelvis [CT abd pelvis wo con] Stat CT head/brain wo con Stat Hospital Course (1) Sepsis: -Present on admission with fever, leukocytosis. Treated and resolved (2) Acute hypoxemic respiratory failure: -77% on RA on presentation -CXR shows pulmonary vascular congestion. Patient with coarse cough. Finished 5 day course of doxycycline for empiric coverage of bronchitis. Received 1 dose of lasix 20mg IV while here -2 Step here showed O2 sat down to 86% on RA and improved on 2L NC -Oxygen was arranged for her prior to discharge. Patient was counseled on smoking cessation and avoiding open flames near her oxygen. (3) E. coli UTI: CT abdomen pelvis: 1. Right perinephric stranding with mild right hydronephrosis and periureteral inflammation consistent with either a recently passed stone or pyelonephritis. 2. Mild left hydronephrosis and hydroureter to the level of the bladder. Received a total of 5 days IV antibiotics while here (initially cefepime then transitioned to ceftriaxone). Discharged on Bactrim DS for another 5 days. This antibiotic option was reviewed with pharmacy. Patient declined being on Levaquin due to potential risk of neuropathy, tendinopathy and arrhythmia. (4) E coli bacteremia: Plan Current smoker -Patient is actively trying to quit. She does well on nicotine patch but has trouble affording it. A Good RX coupon was given to her. She was repeatedly counseled to practice safe home oxygen use including avoiding open flame around her oxygen. Total Time Total Time Spent Total Time Spent (In Minutes): 45 Discharge Plan Discharge Items Patient Disposition: Home - Self-Care Reason For Visit: RESPIRATORY FAILURE, SEPSIS Discharge Diagnosis: E coli UTI (pyelonephritis) E coli bacteremia Sepsis COPD exacerbation Condition on Discharge: Good Activity: Resume your previous activity Non-emergency contact: Primary Care Provider Call non-emergency contact if: you have any medication questions Follow-up/Referrals: Haley Alan, [Primary Care Provider] - (Date & Time 03/17/2023 9:00 AM Provider Makayla Khalil PA-C Department [facility] ) Diet: Carb Consistent or DM2 Addtl Attending Provider Instructions: You were admitted for a UTI and kidney infection which also caused blood stream infection You received IV antibiotic in the hospital for 6 days and will go home on Bactrim DS twice a day for another 4 days If you have weakness, nausea/vomiting, fatigue, fever/chills please return to the hospital You were also treated for bronchitis while in the hospital. You were arranged for home oxygen. Please NO open flames near oxygen. Please continue to stop smoking. You were on Nicoderm 7mg patch in the hospital and you did well. A paper prescription was given to you and a Good RX coupon to use at [facility] pharmacy. You can call 3 (843) QUIT NOW ( ) for smoking cessation resources Pending Studies at Discharge: No Stand-Alone Forms: My [facility], Smoking Cessation Medications and DC Order Prescriptions: New nicotine 7 mg/24 hr Patch 24 Hour 7 mg transdermal QAM Qty: 60 0RF sulfamethoxazole-trimethoprim [Bactrim DS] 800-160 mg tablet 1 tab PO BID Qty: 8 0RF fluconazole 150 mg tablet 150 mg PO DAILY Qty: 1 0RF Rx Instructions: administer on day 1 of therapy clotrimazole [Clotrimazole-7] 1 % cream 1 appful vaginal HS PRN (Reason: yeast ) Qty: 45 0RF Continued atorvastatin 40 mg Tablet 40 mg PO QAM insulin glargine [Lantus U-100 Insulin] 100 unit/mL Solution 44 unit SUBCUT QAM Humalog U-100 Insulin 100 unit/mL Cartridge 1 sliding scale dose SUBCUT USEASDIRECTD Patient Comments: DOSE MIGHT BE A LITTLE HIGHER NOW DEPENDS ON WHAT I EAT Rx Instructions: TAKES 7 UNITS FOR BREAKFAST AND DINNER; 12 UNITS FOR LUNCH= BUT ADJUST NEEDED albuterol sulfate [Ventolin HFA] 90 mcg/actuation Hfa Aerosol Inhaler 2 puff INHALATION UD PRN (Reason: Shortness Of Breath) loperamide 2 mg capsule 2 mg PO UD PRN (Reason: Diarrhea) omeprazole 40 mg Capsule,Delayed Release(Dr/Ec) 40 mg PO BID aspirin 81 mg Tablet,Delayed Release (Dr/Ec) 81 mg PO QAM Discontinued ibuprofen 200 mg Tablet 800 mg PO Q6H PRN (Reason: Fever Or Pain) Discharge Orders: Discharge Order (Routine); Ordered 03/12/23 Ordered By: Reid Irizarry Admission Data Admit Date/Time: 03/08/23 00:44 Attending Provider: Reid Irizarry Admit Provider: Manas Patrick Primary Care Provider: Haley Alan Other Providers: Manas Patrick ; Kevin Wood Other Interventions: Discharge Summary Assessment (RN) Last Done: 03/12/23 11:03
== END 2023-03-12 12:05 | disposition home or self-care (01) | DRG 871 ==
LOC: ED 20:37 → SUATTDRO 03-08 00:44 → 2S 03-08 00:44

== ENCOUNTER 2023-08-04 08:37 | Inpatient (IN) ==
[2023-08-04] MEDS ORDERED: ALBUT/IPRATROP 3MG/0.5MG NEB 3 ML VIAL NEB STA (08:52)
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
[2023-08-04 09:20] LABS: HCO3 VBG 37 mmol/L; Oxygen Saturation VBG < 60.0 %; PCO2 VBG 59 mmHg (38-50); PO2 VBG 34 mmHg
[2023-08-04 09:40] LABS: Albumin Globulin Ratio 0.9 (0.9-2); Albumin Level 3.7 gm/dl (3.4-5.0); Bilirubin,Total 0.5 mg/dl (0.2-1.0); Calcium 9.2 mg/dl (8.6-10.3); Creatinine Clr Calc Pharmacy 74.4 ml/min; Est GFR (African American) 94.6 ml/min; Est GFR (Non-African American) 81.6 ml/min; Globulin 3.9 gm/dl (2.5-4.0); Potassium 4.1 mmol/L (3.5-5.1); Total Protein 7.6 gm/dl (6.0-8.3)
[2023-08-04 09:49] LABS: Prothrombin Time 10.5 Seconds (9.0-12.0)
[2023-08-04 09:50] LABS: Basophils # (auto) 0.07 K/uL (0.00-0.20); Basophils % (auto) 0.6 %; Eosinophils # (auto) 0.12 K/uL (0.00-0.50); Hemoglobin 16.5 g/dl (12.0-16.0); Immature Granulocytes # (auto) 0.07 K/uL (0.01-0.20); Immature Granulocytes % (auto) 0.6 %; Lymphocytes % (auto) 26.2 %; Mean Corpuscular Hemoglobin 30.9 pg (25.0-34.0); Mean Corpuscular Hgb Conc 32.4 g/dL (32.0-36.0); Mean Corpuscular Volume 95.5 fL (80.0-100.0); Mean Platelet Volume 10.5 fL (9.4-12.4); Monocytes # (auto) 0.85 K/uL (0.11-0.59); Monocytes % (auto) 7.4 %; Neutrophils # (auto) 7.35 K/uL (1.40-6.50); Neutrophils % (auto) 64.2 %; Platelet Count 269 K/uL (130-400); RDW Coefficient of Variation 12.8 % (11.5-14.5); RDW Standard Deviation 45.5 fL (36.4-46.3); Red Blood Count 5.34 M/uL (4.20-5.40); White Blood Count 11.46 K/ul (4.8-10.8)
[2023-08-04 10:11] LABS: Adenovirus PCR Not Detected (NotDetected); Bordetella parapertussis PCR Not Detected (NotDetected); Bordetella pertussis PCR Not Detected (NotDetected); Chlamydia pneumoniae PCR Not Detected (NotDetected); Coronavirus 229E PCR Not Detected (NotDetected); Coronavirus CoV-2 (COVID19)PCR Not Detected (NotDetected); Coronavirus HKU1 PCR Not Detected (NotDetected); Coronavirus NL63 PCR Not Detected (NotDetected); Coronavirus OC43PCR Not Detected (NotDetected); Human Metapneumovirus PCR Not Detected (NotDetected); Influenza A PCR Not Detected (NotDetected); Influenza B PCR Not Detected (NotDetected); Mycoplasma pneumoniae PCR Not Detected (NotDetected); Parainfluenza Virus 1 PCR Not Detected (NotDetected); Parainfluenza Virus 2 PCR Not Detected (NotDetected); Parainfluenza Virus 3 PCR Not Detected (NotDetected); Parainfluenza Virus 4 PCR Not Detected (NotDetected); Respiratory Syncytial VirusPCR Not Detected (NotDetected); Rhinovirus/Enterovirus PCR Not Detected (NotDetected)
--- NOTE | 2023-08-04 10:15 | XRay Report ---
XR chest 1V portable CLINICAL HISTORY: Dyspnea. COMPARISON STUDY: Chest radiograph March 07, 2023. FINDINGS: Anterior spine fusion is incidentally noted. Cardiomediastinal silhouette is stable. Vascul ar congestion is unchanged. No pneumothorax or pleural effusion is noted. A density along the left he art border is likely artifactual or atelectatic. IMPRESSION: 1. Stable cardiomegaly and pulmonary vascular congestion. 2. Density along the left heart border which is likely artifactual or atelectatic. An infectious proc ess is considered less likely however radiographic follow up to ensure resolution is recommended. ACT 112: Negative or not required by law. Electronically signed by: Krishna Ferguson M.D. 08/04/2023 10:14 AM
[2023-08-04] MEDS ORDERED: AZITHROMYCIN 500 MG in DEXTROSE 5% 250 ML IV STA (10:17)
[2023-08-04] MEDS ORDERED: cefTRIAXone SODIUM 2,000 MG/50 ML BAG IV STA (10:17)
[2023-08-04 10:39] LABS: Appearance Urine Clear (Clear); Bilirubin Urine Negative (Negative); Blood Urine Negative (Negative); Color Urine Yellow; Glucose Urine UA 3+ (Negative); Ketones Urine Trace (Negative); Leukocyte Esterase Urine Negative (Negative); Nitrite Urine Negative (Negative); Protein Urine Negative (Negative); Specific Gravity Urine 1.018 (1.000-1.030); Urobilinogen Urine Negative (Negative)
[2023-08-04] MEDS ORDERED: guaiFENesin SUGAR FREE 100 MG/5 ML UDC PO PRN (11:06)
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
[2023-08-04] MEDS ORDERED: LOPERAMIDE HCL 2 MG CAP PO PRN (11:19)
[2023-08-04] MEDS ORDERED: OPTIRAY 320 500ml IV ONE (12:02)
[2023-08-04] MEDS ORDERED: GLUCOSE 10 TAB/TUBE PO PRN (12:12)
[2023-08-04] MEDS ORDERED: GLUCAGON FOR INJ 1 MG VIAL SQ PRN (12:12)
[2023-08-04] MEDS ORDERED: DEXTROSE 50% 50 ML SYRINGE IV PRN (12:12)
[2023-08-04] MEDS ORDERED: GLUCOSE 40% GEL 15 GM TUBE PO PRN (12:12)
[2023-08-04] MEDS ORDERED: CARBOHYDRATES FOR HYPOGLYCEMIA PO PRN (12:12)
--- NOTE | 2023-08-04 12:34 | CT Scan Report ---
CT angio chest w con CT DOSE: 919.7 mGy.cm CLINICAL HISTORY: hypoxia TECHNIQUE: Multiaxial CT images of the chest performed following the intravenous administration of co ntrast to evaluate the major vascular structures. 3-D/maximum intensity projection images in the sagi ttal and coronal planes were also obtained for the CTA portion of the examination. A dose lowering t echnique was utilized adhering to the principles of ALARA. COMPARISON STUDY: Abdomen and pelvis CT 04/13/2021. FINDINGS: Normal caliber thoracic aorta with no evidence for a dissection. There are prominent medias tinal and left hilar lymph nodes. The dominant left hilar lymph node measures 9 mm in short axis diam eter. The visualized liver, spleen, and adrenal glands are unremarkable. There is a moderate hiatus h ernia containing the proximal stomach. Normal esophagus. The heart is borderline enlarged. The study was technically not protocoled as a dedicated PE study. There is a linear nonocclusive filling defect seen within the right lower lobe segmental pulmonary artery. This favors a chronic nonocclusive pulm onary embolus. This is best seen on image 165. No definite acute pulmonary emboli identified. The garrick n pulmonary artery is dilated up to 3.3 cm. This suggests pulmonary arterial hypertension cervical sp inal fusion hardware is partially visualized. There is an old, healed sternal fracture. No acute frac tures identified. No pneumothorax. Mild emphysema. The central airways are patent. Focal peripheral c onsolidation within the left lower lobe best in image 145 measuring 2.8 cm. This corresponds the ches t x-ray abnormality. This may represent a focal pneumonia. A pulmonary infarct could also have a renita lar appearance but is considered less likely given the lack of a definitive pulmonary embolus. There is an 8 mm focal irregular density within the right lower lobe in image 178. This may represent a sma ll focus of inflammatory/infectious change. IMPRESSION: 1. No evidence for an aortic dissection. 2. The main pulmonary artery is dilated up to 3.3 cm consistent with pulmonary arterial hypertension. 3. There is a linear nonocclusive filling defect seen within the right lower lobe segmental pulmonary artery. This favors a chronic nonocclusive pulmonary embolus. No definite acute pulmonary emboli jessica ntified. 4. Focal peripheral consolidation within the left lower lobe as described above. This could be due to a pneumonia. A pulmonary infarct could also have a similar appearance. However, there are no definit e acute pulmonary emboli identified within the left lower lobe at this time. 5. An 8 mm focal irregular density within the right lower lobe. This may represent a small focus of i nflammatory/infectious change. 6. A [address] follow-up recommended to ensure resolution of the lower lobe abnormalities. ACT 112: Positive. There are findings on this exam that require communication between the performing entity and the patient following Patient Test Result Information Act ([place] Act 112) guidelines. Electronically signed by: Krunal Guillen M.D. 08/04/2023 12:32 PM
[2023-08-04] MEDS: NICOTINE 7 MG/24 HR TDSY TD SCH (12:46)
[2023-08-04] MEDS ORDERED: ALBUT/IPRATROP 3MG/0.5MG NEB 3 ML VIAL NEB PRN (12:48)
[2023-08-04] MEDS ORDERED: ACETAMINOPHEN 325 MG TAB PO PRN (12:48)
[2023-08-04] MEDS ORDERED: ALBUTEROL HFA 8 GM INHALER INH PRN (12:48)
[2023-08-04] MEDS ORDERED: POLYETHYLENE (MIRALAX) 17 GM PACK PO PRN (12:48)
[2023-08-04] MEDS: UMECLIDINIUM/VILANTEROL 62.5/25MCG 7 PUFFS/INHALER INH SCH (13:13)
[2023-08-04] MEDS ORDERED: INSULIN ASPART PER UNIT CHARGE ONE (14:14)
[2023-08-04] MEDS: INSULIN ASPART PER UNIT CHARGE SC SCH ×2 (14:17→21:10)
--- NOTE | 2023-08-04 15:36 | Electrocardiogram Report ---
Test Reason : Blood Pressure : / mmHG Vent. Rate : 083 BPM Atrial Rate : 083 BPM P-R Int : 166 ms QRS Dur : 078 ms QT Int : 390 ms P-R-T Axes : 075 228 008 degrees QTc Int : 458 ms Poor data quality, interpretation may be adversely affected Normal sinus rhythm Right superior axis deviation Diffuse Nonspecific T wave abnormality Abnormal ECG When compared with ECG of 11-MAR-2023 15:12, Nonspecific T wave abnormality now present Confirmed by Loc Randall ([id number]) on 08/04/2023 3:36:25 PM Referred By: REFERRED SELF Confirmed By:Loc Randall
[2023-08-04] MEDS ORDERED: INFLUENZA VIRUS QUADRIVALENT VACCINE (IIV4) 0.5 ML SYR IM ONE (16:05)
[2023-08-04] MEDS ORDERED: INSULIN ASPART PER UNIT CHARGE SC STA (17:25)
[2023-08-04] MEDS: PANTOprazole 40 MG TAB PO SCH (18:02)
[2023-08-04] MEDS: ENOXAPARIN INJ 40 MG/0.4 ML SYR SQ SCH (18:02)
[2023-08-04] MEDS: IBUPROFEN 200 MG TAB PO PRN (18:46)
[2023-08-04] MEDS: guaiFENesin 600 MG TABCR PO SCH (20:49)
[2023-08-04] MEDS ORDERED: PANTOprazole 40 MG TAB PO SCH (21:00)
[2023-08-05 07:21] LABS: BUN Creatinine Ratio 21.3 (10-20); Calcium 9.6 mg/dl (8.6-10.3); Creatinine Clr Calc Pharmacy 76.3 ml/min; Est GFR (African American) 97.6 ml/min; Est GFR (Non-African American) 84.2 ml/min; Magnesium 1.9 mg/dl (1.7-2.4); Phosphorus 3.9 mg/dl (2.5-4.9); Potassium 4.3 mmol/L (3.5-5.1)
[2023-08-05 07:38] LABS: Hematocrit (blood only) 49.6 % (37.0-47.0); Mean Corpuscular Hemoglobin 30.7 pg (25.0-34.0); Mean Corpuscular Hgb Conc 32.3 g/dL (32.0-36.0); Mean Corpuscular Volume 95.2 fL (80.0-100.0); Mean Platelet Volume 10.2 fL (9.4-12.4); Platelet Count 300 K/uL (130-400); RDW Coefficient of Variation 12.3 % (11.5-14.5); RDW Standard Deviation 43.5 fL (36.4-46.3); Red Blood Count 5.21 M/uL (4.20-5.40); White Blood Count 14.37 K/ul (4.8-10.8)
[2023-08-05 07:45] LABS: Estimated Average Glucose 212 mg/dl
[2023-08-05] MEDS: INSULIN ASPART PER UNIT CHARGE SC SCH ×4 (08:36→20:46)
[2023-08-05] MEDS: guaiFENesin 600 MG TABCR PO SCH ×2 (08:41→20:46)
[2023-08-05] MEDS: IBUPROFEN 200 MG TAB PO PRN ×2 (08:43→15:00)
[2023-08-05] MEDS: NICOTINE 7 MG/24 HR TDSY TD SCH (08:44)
[2023-08-05] MEDS: ATORVASTATIN 40 MG TAB PO SCH (08:45)
[2023-08-05] MEDS: AZITHROMYCIN 250 MG TAB PO SCH (08:45)
[2023-08-05] MEDS: ASPIRIN 81 MG ECTAB PO SCH (08:45)
[2023-08-05] MEDS: predniSONE 20 MG TAB PO SCH (08:46)
[2023-08-05] MEDS: UMECLIDINIUM/VILANTEROL 62.5/25MCG 7 PUFFS/INHALER INH SCH (08:47)
[2023-08-05] MEDS: FLUTICASONE PROPIONATE NA SPR 16 GM BTL SCH (08:47)
[2023-08-05] MEDS: PANTOprazole 40 MG TAB PO SCH ×2 (08:51→20:46)
[2023-08-05] MEDS ORDERED: LANTUS PER UNIT CHARGE SQ SCH (09:00)
--- NOTE | 2023-08-05 11:50 | Hospitalist Progress Note ---
Date of Service August 05, 2023 Assessment & Plan (1) COPD with hypoxia: (2) Acute hypoxic respiratory failure: (3) Type 2 diabetes mellitus without complications: (4) Bronchitis: Plan Ms. Jennifer Rivas is a 63 year old woman with past medical history notable for COPD, HLD, recent acute hypoxic respiratory failure requiring 2L continuous oxygen (discontinued 05/2023) 2/2 bronchitis admitted with acute hypoxic respiratory failure. #Acute Hypoxic Respiratory Failure, possibly multifactorial #Pleuritic Chest Pain, ?lobar pneumonia v PE #Acute COPD Exacerbation iso Centrilobular emphysema -PESI score 94, intermediate risk PERC 3 points -CTA chest with questionable PE changes, infection and noted pulmonary HTN UA unremarkable, urine and blood Cx with NGTD, biofire negative -Continue Prednisone burst x 5 days -Continue azithromycin and rocephin -Continue Albuterol inhaler prn and duonebs prn -Continue LABA/LAMA -Symptoms control: guaifenesin scheduled q12, Robitussin prn, Tylenol prn -Flutter valve -Pulmonology consult, appreicate recs Pulmonary HTN -Follow echo #Postnasal drip -Start Flonase daily #Tobacco Use #Secondary polycythemia -likely secondary to chronic hypoxia/ongoing tobacco use -Continue daily asa -Continue nicotine patch, dicussed barriers to cessation #Diabetes Mellitus -Home lantus 44 U and sliding scale -Continue above -A1C in am #HLD -Continue ASA and statin #GERD -Home Protonix BID Diet: DMII DVT prophylaxis: lovenox Dispo: PT/OT ordered Admission and Anticipated Discharge Date Admission Date: August 04, 2023 Subjective Pt seen in the AM. States that she does not want a heart healthy diet. Asking about her glucose levels. otherwise denied acute concerns. Review of Systems Review of Systems: All systems reviewed & are unremarkable except as noted in Subjective Physical Exam 2 Physical Exam: General: Alert, oriented. No acute distress Skin: No noted rashes or bruises Psych: Appropriate mood and affect Neuro: No gross deficits HEENT: NC/AT Chest: Nontender to palpation. CV: RRR, Normal s1, s2. No murmurs appreciated Resp: Breath sounds decreased bilaterally, no increased effort of breathing. Abdomen: Soft, nontender, nondistended. Extremities: No edema in lower extremities bilaterally. Results & Data Results & Data Vital Signs (Past 12 Hours) Vital Signs Temp Pulse Resp BP Pulse Ox O2 Del Method O2 Flow Rate 08/05/23 08:19 37.2 C 67 18 143/78 H 91 Nasal Cannula 3 08/05/23 07:20 Nasal Cannula 3
[2023-08-05] MEDS: cefTRIAXone SODIUM 2,000 MG in DEXTROSE 5 % MINI-B 50 ML IV SCH (11:59)
[2023-08-05] MEDS: ENOXAPARIN INJ 40 MG/0.4 ML SYR SQ SCH (17:23)
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
--- OUTSIDE RECORDS SUMMARY | 2023-08-06 04:02 | External Medical Summary | Summary of Care ---
Author Name Unknown Organization [facility] Address [address] [place] [address] Phone [phone] Care Team Providers Care Shell Fisherman Name Role Phone Haley Alan DO Primary Care Provider Reason for Visit * Reason Onset Date Comments Med Request 07/27/2023 Encounter Details Date Type Department Care Team (Late st Contact Info) Description 07/27/2023 Telephone Family Practice [facility] [address] [facility] [place] [address] Haley Alan DO [address] [facility] [place] [address] Med Request Allergies Active Allergy Reactions Criticality Noted Date Comments Empagliflozin Diarrhea,Other (Please comment) 12/04/2020 Uncontrollable dizziness Shellfish-Derived Products Edema airway High 05/05/2020 documented as of this encounter (statuses as of 07/27/2023) Medications Medication Sig Dispensed Refills Start Date End Date Status ASPIRIN 81 MG PO TABS Take 1 Tablet by mouth at bedtime. 0 Active FreeStyle Boy 2 Sensor Use as directed. Use as directed every 14 days 2 Each 11 06/22/2021 Active Diapers & SuppliesIndication s:Mixed incontinence urge and stress (male)(female) Use as needed for incontinence 90 Each 3 04/20/2022 Active Ventolin HFA 108 (90 Base) MCG/ACT Inhalation Aerosol SolutionIndication s:Bacterial pneumonia INHALE 2 PUFFS BY MOUTH EVERY 4 HOURS NEEDED FOR COUGH. 36 g 1 11/06/2022 Active Loperamide HCl 2 MG Oral Capsule (Imodium)Indicatio ns:Chronic diarrhea TAKE 1 CAPSULE BY MOUTH TWICE A DAY NEEDED 60 Capsule 3 11/08/2022 Active Insulin Lispro (1 Unit Dial) 100 UNIT/ML Subcutaneous Solution Pen-injector (HumaLOG KwikPen)Indication s:Type 2 diabetes mellitus with hemoglobin A1c goal of less than or equal to 9.0% (HCC) INJECT 11 UNITS SUBQ WITH BREAKFAST, 11UNITS WITH LUNCH, 14 UNITS WITH DINNER, PLUS CORRECTION CHART (MAX 50 UNITS DAILY) 45 mL 3 11/18/2022 Active Insulin Glargine Solostar 100 UNIT/ML Subcutaneous Solution Pen-injector (Lantus SoloStar)Indicatio ns:Type 2 diabetes mellitus with hemoglobin A1c goal of less than or equal to 9.0% (HCC) Inject 44 Units under the skin in the morning. 45 mL 3 11/30/2022 Active Atorvastatin Calcium 40 MG Oral Tablet (Lipitor)Indicatio ns:Mixed dyslipidemia TAKE 1 TABLET BY MOUTH EVERY DAY 90 Tablet 3 02/04/2023 Active Omeprazole 40 MG Oral Capsule Delayed Release (PriLOSEC)Indicati ons:Wallace's esophagus with low grade dysplasia TAKE 1 CAPSULE BY MOUTH IN THE MORNING AND BEFORE BEDTIME 180 Capsule 1 02/25/2023 Active BD Pen Needle Bre 2nd Gen 32G X 4 MM (Insulin Pen Needle) USE 4 TIMES DAILY FOR INSULIN INJECTION 400 Each 3 02/25/2023 Active Nicotine 7 MG/24HR Transdermal Patch 24 Hour (Nicoderm CQ) 7 mg. 0 03/12/2023 Active Pulse Oximeter For FingerIndications: COPD, moderate (HCC) Use as directed. 1 Each 0 03/17/2023 Active documented as of this encounter (statuses as of 07/27/2023) Active Problems Problem Noted Date Diagnosed Date COPD, group B, by GOLD 2017 classification 06/27 Overview: Per COPD GOLD Classification TERMINATED MEDICATION USAGE AGREEMENT 12/22/2022 Overview: As of 12/22/2022, 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 Food insecurity 05/31/2022 Overview: Per [facility] Protocol S/P cervical spinal fusion 01/12/2022 Osteoarthritis of both hands 01/02/2019 Wallace's esophagus 02/21/2015 Encounter for long-term (current) use of medicat ions 10/01/2014 Overview: ICD-10 update of inactive term Headache 06/18/2014 Overview: ICD-10 update of inactive term Type 2 diabetes mellitus wit h hemoglobin A1c goal of less than or equal to 9.0% 02/08/2014 Overview: ICD-10 update of inactive term Cervicalgia 04/17/2013 Restless leg syndrome 02/19/2013 Cervical radiculopathy 01/05/2013 Allergic rhinitis 08/31/2006 Obesity, Class I, BMI 30.0-34.9 (see actual BMI) 07/20/2006 Displacement of lumbar inter vertebral disc without myelopathy 07/19/2006 DYSFUNCT EUSTACHIAN TUBE 10/27/2004 CHRONIC TOBACCO MUCOSITIS 10/27/2004 OBESITY, UNSPECIFIED 04/28/2004 ADJ DISORDER W/DEPRES MOOD 12/13/2003 Tobacco use disorder 12/13/2003 Mixed dyslipidemia 07/12/2003 Dyslipidemia, goal LDL below 160 Overview: Hypercholesterolemia documented as of this encounter (statuses as of 07/27/2023) Resolved Problems Problem Noted Date Diagnosed Date Resolved Date COPD, moderate 05/05/2020 06/30/2023 Overview: Per COPD GOLD Classification Acute non-recurrent maxillary sinusitis 08/04/2019 11/06/2020 Staph aureus infection 08/15/201510/03 MEDICATION USE AGREEMENT 10/01/201401/2023 Myalgia and myositis 04/17/2013 018 Gestational diabetes mellitus, antepartum 07/20/2006 02/19/2013 Overview: Past history ADVANCE DIRECTIVE INFORMATION 04/26/2005 09/05/2017 Overview: No, Advance Directive brochure offered , patient declined. WALLACE'S ESOPHAGUS 04/26/2005 02/22/20 15 Otogenic pain 10/27/2004 02/21/2015 FAM HX-DIABETES MELLITUS 07/12/200301/2015 documented as of this encounter (statuses as of 07/27/2023) Immunizations Name Administration Dates Next Due COVID-19 mRNA, LNP-s, No Pre serve, 2-Dose Series (Pfizer) 08/12/2021,12/08/2020,11/12/2020 Hepatitis B, 20+ yrs 09/20/2014,02/09/20 14,01/26/2014(Defer red: Patient Refused) Pneumococcal Conjugate Vacci ne, 20-valent ([id number]) 05/13/2022 Pneumococcal Polysaccharide PPV23 (Pneumovax) 05/18/2012 SEASONAL INFLUENZA, PF, 6 M & Above, IM , (FLULAVAL or FLUZONE) 07/08/2022,06/10/2021,06/12/2020,07/10,08/08/2018,09/05/2017 Seasonal Influenza, Quadriva lent, No Preserve, IM 06/03/2016,08/15/2015 Seasonal Influenza, Split, I IV3, With Preserve, Inj 06/18/2014,07/05/2013,05/18/2012,10/18 TD, Preservative Free 06/03/2016 TDAP (age 11 and older)(Adacel) 04/22/2006 Zoster Vaccine Recombinant (Shingrix) 11/05/2020 ,05/06/2020 documented as of this encounter Social History Tobacco Use Types Packs/Day Years Used Date Smoking Tobacco: Some Days Cigarettes 0.8 40 Smokeless Tobacco: Never Alcohol Use Standard Drinks/Week Comments No 0 (1 standard drink = 0.6 oz pur e alcohol) PHQ-2 Answer Date Recorded PHQ-2 Score -1 07/23/2018 Sex and Gender Information Value Date Recorded Sex Assigned at Not on file Gender Identity Not on file Sexual Orientation Not on file Job Start Date Occupation Industry Not on file Not on file Not on file documented as of this encounter Miscellaneous Notes * Telephone Encounter - Letitia Zamudio OSA - 07/27/2023 10:57 AM EST My g sent 07/27 * Telephone Encounter - Haley Alan DO - 07/27/2023 10:00 AM EST Please call: Please make an in person appointment for evaluation, exam to decide the best path forward together Ok to use an acute "same day" appt. Note: to get "first dibbs" on the appointments- they don't open up until 5pm the day prior. You cancall (phones are open until 7pm) or go online to make an acute appt after 5pm Haley Alan DO * Telephone Encounter - Leida Jordan CPhT - 07/27/2023 8:45 AM EST Pt calling with complaints of sinus infection and is requesting a medication be prescribed. Pt did not want to schedule an appointment at this time. Call details was not completed because see below. Please advise. Pt has no transportation to get for an OV- symptoms include yellow mucus, headache/ pressure, ears hurts, throat hurts, body aches. This started last and can't shake it Thank you, Leida Jordan CPhT II [employer] [facility] (Formerly [facility]) 07/27/2023, 8:45 AM documented in this encounter Plan of Treatment Upcoming Encounters Date Type Department Care Team (Late st Contact Info) Description 08/31/2023 10:00 AM EST Office Visit Pharmacy, [facility] [place] [address] [place] [address] Pharmacist1, [facility] [address] [place] [address] 11/11/2023 10:00 AM EST Office Visit Family Practice [facility] [place] [address] [place] [address] Haley Alan DO [address] [place] [id number] Health Maintenance Due Date Last Done Comments Alpha-1 Antitrypsin 1977 Fecal Occult Blood Test 2004 Sigmoidoscopy 2004 Hepatitis B (3 of 3 - Risk 3-dose series) 11/15/2014 09/20/2014, 02/08/2014 DISCUSS TOBACCO CESSATION (REFER TO SMARTSET #8746) 08/15/2016 08/15/2015 Depression Screening 10/21/2018 10/21/2017 Wallace's Esophagus Surveilance 11/26/2018 11/27/2015, 07/02/2014, 05/01/2013, Additional history exists Diabetic Eye Exam 06/02/2022 06/02/2021, , 12/13/2018, Additional history exists Colonoscopy 07/26/2022 07/26/2012, 03/2012, 04/15/2005, Additional history exists GFR 05/13/2023 05/13/2022, 10/21, 04/13/2021, Additional history exists COVID-19 Vaccine ( season) 2023 08/12/2021, 12/08/2020, 11/12/2020 Influenza Vaccine (FLU shot) (#1) 2023 07/08/2022, 06/10/2021, 06/12/2020, Additional history exists Albumin/Creatinine Ratio 11/15/2023 023, 07/30/2021, 04/23/2020, Additional history exists HbA1c 01/05/2024 07/06/2023, 06/1 11/2022, 11/15/2022, Additional history exists Diabetic Foot Exam 04/25/2024 04/25/2023, 0 05/13/2022, 05/07/2021, Additional history exists Mammogram 05/25/2024 05/25/2023, 0305/2022, 05/09/2020, Additional history exists O2 ASSESSMENT COMPLETED IN PAST YEAR FOR COPD 06/10/2024 06/10/2023 Cologuard 04/16/2026 04/16/2023, 03/20, 04/11/2023 Colorectal Cancer Screening 04/16/2026 DTaP,Tdap,and Td Vaccines (3 - Td or Tdap) 06/03/2026 06/03/2016, 04/22/2006 Lipid Panel 11/15/2027 11/15/2022, 10/21, 04/23/2020, Additional history exists Zoster Vaccines Completed 11/05/2020, 05/06/2020 Pneumococcal Vaccine: Pediatrics (0 to 5 Years) and At-Risk Patients (6 to 64 Years) Completed 05/13/2022, 05/18/2012 LUNG CANCER SCREENING - USE SMARTSET 70019 Completed 12/08/2022, 11/25/2021 GARDASIL-HPV IMMUNIZATION SERIES Aged Out No longer eligible based on patient's age to complete this topic MENINGOCOCCAL (MENACTRA/MENVEO) Aged Out No longer eligible based on patient's age to complete this topic documented as of this encounter Medical Devices Implanted Type Area Manuscripts Curator Device Identifier Shelf Expiration Date Model / Serial / Lot 7mm Lord Acis Cage Implanted:Qty: 2 on 12/29/2012 at [facility] [place] N/A: Spine Cervical JNJ : DEPUY SPINE [id number] / / documented as of this encounter Advance Directives Latest Code Status on File Code Status Date Activated Date Inactivated Comments Full Code 12/29/2012 10:02 AM 01/01/2013 11:33 PM Thi s order reflects the patients wishes and were consensually agreed upon. Question Answer Comments Discussion of Advance Directives occurred with: Patient Healthcare Agents on File Name Relationship Healthcare Agent Relationship Communication Lida Palacios Other - (no specific identity) Health Care Supervisor Telephone Information (appointed verbally by patient or by statute hierarchy) Care Teams Shell Fisherman Relationship Specialty Start Date End Date Haley Alan DO [address] [place] [address] PCP - General Family Medicine 03/04/17 documented as of this encounter
--- OUTSIDE RECORDS SUMMARY | 2023-08-06 04:02 | External Medical Summary | Summary of Care ---
Author Name Unknown Organization [facility] Address [address] [place] [address] Phone [phone] Care Team Providers Care Supervisor Ride Assembly Name Role Phone Dayanna Haley Miller DO Primary Care Provider Reason for Visit * Reason Comments Dosage Adjustment In Person (Anticoag Cl inic) Diabetes Follow-Up Encounter Details Date Type Department Care Team Description 07/06/2023 Office Visit Pharmacy, [facility] [place] [address] [place] [address] Pharmacist1, [facility] [address] [facility] [place] [id number] Type 2 diabetes mellitus with hemoglobin A1c goal of less than or equal to 9.0% ([facility])* Allergies Active Allergy Reactions Severity Noted Date Comments Empagliflozin Diarrhea,Other (Please comment) 12/04/2020 Uncontrollable dizziness Shellfish-Derived Products Edema airway High 05/05/2020 documented as of this encounter (statuses as of 07/06/2023) Medications Medication Sig Dispensed Refills Start Date [...] as of this encounter (statuses as of 07/06/2023) Active Problems Problem Noted Date COPD, group B, by GOLD 2017 classificati on 06/27/2023 Overview: Per COPD GOLD Classification TERMINATED MEDICATION USAGE AGREEMENT Overview: As of 12/22/2022, 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 Food insecurity 05/31/2022 Overview: Per [facility] Protocol S/P cervical spinal fusion 01/12/2022 Osteoarthritis of both hands 01/02/2019 Wallace's esophagus 02/21/2015 Encounter for long-term (current) use of medications 10/01/2014 Overview: ICD-10 update of inactive term Headache 06/18/2014 Overview: ICD-10 update of inactive term Type 2 diabetes mellitus wit h hemoglobin A1c goal of less than or equal to 9.0% 02/08/2014 Overview: ICD-10 update of inactive term Cervicalgia 04/17/2013 Restless leg syndrome 02/19/2013 Cervical radiculopathy 01/05/2013 Allergic rhinitis 08/31/2006 Obesity, Class I, BMI 30.0-34.9 (see act ual BMI) 07/20/2006 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 07/19/2006 DYSFUNCT EUSTACHIAN TUBE 10/27/2004 CHRONIC TOBACCO MUCOSITIS 10/27/2004 OBESITY, UNSPECIFIED 04/28/2004 ADJ DISORDER W/DEPRES MOOD 12/13/2003 Tobacco use disorder 12/13/2003 Mixed dyslipidemia 07/12/2003 Dyslipidemia, goal LDL below 160 Overview: Hypercholesterolemia documented as of this encounter (statuses as of 07/06/2023) Resolved Problems Problem Noted Date Resolved Date COPD, moderate 05/05/2020 06/30/2023 Overview: Per COPD GOLD Classification Acute non-recurrent maxillary sinusitis 08/04/20 19 11/06/2020 Staph aureus infection 08/15/2015 8 MEDICATION USE AGREEMENT 10/01/2014 023 Myalgia and myositis 04/17/2013 10/03/2017 Gestational diabetes mellitus, antepartum 200502/19/2013 Overview: Past history ADVANCE DIRECTIVE INFORMATION 04/26/2005 Overview: No, Advance Directive brochure offered , patient declined. WALLACE'S ESOPHAGUS 04/26/2005 02/21/2015 Otogenic pain 10/27/2004 02/21/2015 FAM HX-DIABETES MELLITUS 07/12/2003 015 documented as of this encounter (statuses as of 07/06/2023) Immunizations Name Administration Dates Next Due COVID-19 mRNA, LNP-s, No Pre serve, 2-Dose Series (Pfizer) 08/12/2021,12/08/2020,11/12/2020 Hepatitis B, 20+ yrs 09/20/2014,02/09/20 14,01/26/2014(Defer red: Patient Refused) Pneumococcal Conjugate Vacci ne, 20-valent ([id number]) 05/13/2022 Pneumococcal Polysaccharide PPV23 (Pneumovax) 05/18/2012 SEASONAL [...] drink = 0.6 oz pur e alcohol) Sex Assigned at Date Recorded Not on file Job Start Date Occupation Industry Not on file Not on file Not on file documented as of this encounter Progress Notes * Hugo Toribio V, [facility] - 07/06/2023 10:07 AM EDT Images from the original note were not included. Medication Therapy Disease Management [facility] - Diabetes Management Progress Note Jennifer Rivas, identified by name and date of , is a 63 year old female being seen for diabetes management/education. Patient presents for return diabetic visit. DIABETES: Current diabetic medications: Humalog 14 units before breakfast, 12 units before lunch, 10 units before dinner + CF 1:30 over 150at meals only (gave sheet) INCREASE: Lantus 48 units daily in the morning (back to 44 units daily) Medication Injection Site: Abdomen Lifestyle: Diet: unchanged History of Treatment Barriers: Lifestyle: None Therapy considerations: None Medication: Jardiance (diarrhea, dizziness), Metformin (diarrhea) Trulicity (severe nausea/diarrhea) Glucose Review/SMBG: Readings obtained from patient device Hypoglycemia: Does your blood sugar go below 70 mg/dL? Yes, a couple of times Hyperglycemia symptoms present: none Goal <9 Recent Labs Units 07/06/23 0935 03/01/23 0932 11/15/22 0930 HEMOGLOBIN A1C - [facility] % -- -- 9.2* HEMOGLOBIN A1C POCT - [facility] % 8.9* 8.5* -- Recent Labs Units 05/13/22 1047 11/10/21 1109 04/13/21 0000 ESTIMATED GLOMERULAR FILTRATION RATE - [facility] mL/min 76 87 -- EGFR-OUTSIDE LAB ML/MIN -- -- 92.9 CREATININE - [facility] mg/dL 0.9 0.8 -- CREATININE-OUTSIDE LAB MG/DL -- -- 0.70 Lab Results Component Value Date/Time CREATININE - [facility] 0.9 05/13/2022 10:47 AM CREATININE - [facility] 0.8 11/10/2021 11:09 AM CREATININE - [facility] 0.8 04/23/2020 07:53 AM CREATININE - [facility] 0.8 01/02/2019 01:17 PM CREATININE - [facility] 0.8 03/04/2017 11:38 AM CREATININE, RANDOM URINE - [facility] 102 11/15/2022 09:30 AM CREATININE, RANDOM URINE - [facility] 64 07/30/2021 12:21 PM CREATININE, RANDOM URINE - [facility] 148 04/23/2020 07:53 AM CREATININE, RANDOM URINE - [facility] 110 01/02/2019 01:17 PM CREATININE, RANDOM URINE - [facility] 69 03/04/2017 11:47 AM CREATININE-OUTSIDE LAB 0.70 04/13/2021 12:00 AM CREATININE-OUTSIDE LAB 0.88 12/24/2014 12:00 AM HYPERTENSION: Patient on ACEi/ARB: no, not indicated BP Readings from Last 3 Encounters: 06/10/23 110/64 04/25/23 116/64 03/17/23 104/62 Blood pressure at goal: yes HYPERLIPIDEMIA: Patient is taking moderate or high intensity statin: yes, Atorvastatin 40mg daily HEALTH MAINTENANCE REVIEW: Health Maintenance Due Topic Date Due Alpha-1 Antitrypsin Never done Hepatitis B (3 of 3 - 19+ 3-dose series) 11/15/2014 DISCUSS TOBACCO CESSATION (REFER TO SMARTSET #3291) 08/15/2016 Depression Screening 10/21/2018 Wallace's Esophagus Surveilance 11/26/2018 DIABETES-EYE EXAM 06/02/2022 GFR 05/13/2023 Influenza Vaccine (FLU shot) (1) 05/20/2023 COVID-19 Vaccine (2022- season) 2023 ASSESSMENT & PLAN: ICD-10-CM 1. Type 2 diabetes mellitus with hemoglobin A1c goal of less than or equal to 9.0% ([facility]) E11.9 BG Readings - Blood sugars uncontrolled. A1C 8.9 today - at goal. Medications - Reviewed current regimen, patient is adherent to regimen. Had a couple of lows and decreased Lantus to 44 units Diet, Exercise, Lifestyle - No significant lifestyle changes since last visit. Discussed with patient today. Patient is agreeable to Ricco Brunson CGM. Patient aware to contact clinic if any hypoglycemia before next visit. MEDICATION CHANGES: yes, see below; preferred pharmacy: [facility] Medications: INCREASE: Humalog 14 units before breakfast, 12 units before lunch, 12 units before dinner + CF 1:30 over 150 at meals only (gave sheet) INCREASE: Lantus 46 units daily in the morning HEALTH MAINTENANCE INTERVENTIONS: Labs: Ordered & Scheduled: BMP/CMP Immunizations: getting flu next week Foot Exam: Up to Date Eye Exam: needs completed Annual Wellness Visit: Up to Date FOLLOW UP: Return to clinic in 8 weeks 08/31/2023 Hugo Toribio RPh, ZACE Clinical Pharmacist - Director Of Strategic [employer]iances Medication Therapy Management Clinic 07/06/2023, 10:08 AM documented in this encounter Plan of Treatment Upcoming Encounters Date Type Specialty Care Team Description 08/31/2023 Office Visit Pharmacy Pharmacist1, [facility] [address] [place] [address] 11/11/2023 Office Visit Family Medicine Haley Alan, [address] [place] [address] Health Maintenance Due Date Last Done Comments Alpha-1 Antitrypsin 1977 Fecal Occult Blood Test 2004 Sigmoidoscopy 2004 Hepatitis B (3 of 3 - 19+ 3-dose series) 11/15/2014 09/20/2014, 02/08/2014 DISCUSS TOBACCO CESSATION (REFER TO SMARTSET #3291) 08/15/2016 08/15/2015 Depression Screening 10/21/2018 10/21/2017 Wallace's Esophagus Surveilance 11/26/2018 11/27/2015, 07/02/2014, 05/01/2013, Additional history exists DIABETES-EYE EXAM 06/02/2022 06/02/2021, , 12/13/2018, Additional history exists Colonoscopy 07/26/2022 07/26/2012, 03/2012, 04/15/2005, Additional history exists GFR 05/13/2023 05/13/2022, 10/21, 04/13/2021, Additional history exists COVID-19 Vaccine ( season) 2023 08/12/2021, 12/08/2020, 11/12/2020 Influenza Vaccine (FLU shot) (#1) 2023 07/08/2022, 06/10/2021, 06/12/2020, Additional history exists Albumin/Creatinine Ratio 11/15/2023 023, 07/30/2021, 04/23/2020, Additional history exists HbA1c 01/05/2024 07/06/2023, 02/17, 11/15/2022, Additional history exists Diabetic Foot Exam 04/25/2024 04/25/2023, 0 05/13/2022, 05/07/2021, Additional history exists Mammogram 05/25/2024 05/25/2023, 05/2022, 05/09/2020, Additional history exists O2 ASSESSMENT COMPLETED [...] 05/18/2012 LUNG CANCER SCREENING - USE SMARTSET 98173 Completed 12/08/2022, 11/25/2021 GARDASIL-HPV IMMUNIZATION SERIES Aged Out No longer eligible based on patient's age to complete this topic MENINGOCOCCAL (MENACTRA/MENVEO) Aged Out No longer eligible based on patient's age to complete this topic documented as of this encounter Medical Devices Implanted Type Area Kardex Clerk Device Identifier Shelf Expiration Date Model / Serial / Lot 7mm Lord Acis Cage [place]ed:Q[place]: 2 [place] 12[place]29/[place] [facility] [place] Spine Cervical JNJ : DEPUY SPINE [id number] / / documented as of this encounter Procedures Procedure Name Priority Date/Time Associated Diagnosis Comments HEMOGLOBIN A1C, POINT OF CARE DEVIN 07/06/2023 9:35 AM EDT documented in this encounter Results * (ABNORMAL) HEMOGLOBIN A1C, POINT OF CARE (07/06/2023 9:35 AM EDT) Hemoglobin A1c 8.9(H) 4.0 - 5.6 % 07/06/2023 10:19 AM EDT [facility]02 Blood 07/06/2023 9:35 AM EDT 07/06/2023 10:19 AM EDT [facility] Pharmacist1 LAB POINT OF C ARE TEST DOCKED DEVICE UNSOLICITED RESULTS [facility] 56-[address] [facility] [address] documented in this encounter Visit Diagnoses Diagnosis Type 2 diabetes mellitus with hemoglobin A1c goal of less than or equal to 9.0% (HCC)- Primary documented in this encounter Advance Directives Latest Code Status [...] Other - (no specific identity) Health Care Maintainer Operator (appointed verbally by patient or by statute hierarchy) Care Teams Supervisor Ride Assembly Relationship Specialty Start Date End Date Haley Alan DO [address] [facility] [address] PCP - General Family Medicine 03/04/17 documented as of this encounter
--- OUTSIDE RECORDS SUMMARY | 2023-08-06 04:02 | External Medical Summary | Summary of Care ---
Author Name Unknown Organization [facility] Address [address] [place] [address] Phone [phone] Care Team Providers Care Fertilizing Machine Operator Name Role Phone Haley Alan DO Primary Care Provider Reason for Visit * Reason Onset Date Comments FYI 03/24/2023 Encounter Details Date Type Department Care Team Description 03/24/2023 Telephone Family Practice [facility] Milner [address] [facility] [place] [phone] Haley Alan DO [address] [facility] [place] [address] FYI Allergies Active Allergy Reactions Severity Noted Date Comments Empagliflozin Diarrhea,Other (Please comment) 12/04/2020 Uncontrollable dizziness Shellfish-Derived Products Edema airway High 05/05/2020 documented as of this encounter (statuses as of 06/23/2023) Medications Medication Sig Dispensed Refills Start Date [...] as of this encounter (statuses as of 06/23/2023) Active Problems Problem Noted Date TERMINATED MEDICATION USAGE AGREEMENT Overview: As of 12/22/2022, 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 Food insecurity 05/31/2022 Overview: Per [facility] Protocol S/P cervical spinal fusion 01/12/2022 COPD, moderate 05/05/2020 Osteoarthritis of both hands 01/02/2019 Wallace's esophagus [...] as of this encounter (statuses as of 06/23/2023) Resolved Problems Problem Noted Date Resolved Date Acute non-recurrent maxillary sinusitis 08/04/20 19 11/06/2020 [...] as of this encounter (statuses as of 06/23/2023) Immunizations Name Administration Dates Next Due COVID-19 mRNA, LNP-s, No Pre serve, 2-Dose Series ([employer]) 08/12/2021,12/08/2020,11/12/2020 Hepatitis B, 20+ yrs 09/20/2014,02/09/20 14,01/26/2014(Defer red: Patient Refused) Pneumococcal Conjugate Vacci ne, 20-valent ([id number]) 05/13/2022 Pneumococcal Polysaccharide PPV23 (Pneumovax) 05/18/2012 SEASONAL [...] Types Packs/Day Years Used Date Smoking Tobacco: Former Cigarettes 0.5 40 Q uit: 03/07/2023 Smokeless Tobacco: Never Alcohol Use Standard Drinks/Week Comments No 0 (1 standard drink = 0.6 oz pur e alcohol) Sex Assigned at Date Recorded Not on file Job Start Date Occupation Industry Not on file Not on file Not on file documented as of this encounter Miscellaneous Notes * Telephone Encounter - HELEN Rizvi - 03/24/2023 11:20 AM EDT Faxed office notes from 11/18/22 documented in this encounter Plan of Treatment Upcoming Encounters Date Type Specialty Care Team Description 07/06/2023 Office Visit Pharmacy Pharmacist1, [facility] [address] [place] [address] 11/11/2023 Office Visit Family Medicine Haley Alan, DO [address] [place], [place] [address] Health Maintenance Due Date Last Done Comments Alpha-1 Antitrypsin 1977 Fecal Occult Blood Test 2004 Sigmoidoscopy 2004 Hepatitis B (3 of 3 - 19+ 3-dose series) 11/15/2014 09/20/2014, 02/08/2014 DISCUSS TOBACCO CESSATION (REFER TO SMARTSET #3291) 08/15/2016 08/15/2015 Depression Screening 10/21/2018 10/21/2017 DIABETES-EYE EXAM 06/02/2022 06/02/2021, , 12/13/2018, Additional history exists Colonoscopy 07/26/2022 07/26/2012, 03/2012, 04/15/2005, Additional history exists GFR 05/13/2023 05/13/2022, 10/21, 04/13/2021, Additional history exists COVID-19 Vaccine ( season) 2023 08/12/2021, 12/08/2020, 11/12/2020 Influenza Vaccine (FLU shot) (#1) 2023 07/08/2022, 06/10/2021, 06/12/2020, Additional history exists HbA1c 08/31/2023 03/01/2023, 10/21, 05/13/2022, Additional history exists Albumin/Creatinine Ratio 11/15/2023 023, 07/30/2021, 04/23/2020, Additional history exists Diabetic Foot Exam 04/25/2024 [...] 05/18/2012 LUNG CANCER SCREENING - USE SMARTSET 96120 Completed 12/08/2022, 11/25/2021 GARDASIL-HPV IMMUNIZATION SERIES Aged Out No longer eligible based on patient's age to complete this topic MENINGOCOCCAL (MENACTRA/MENVEO) Aged Out No longer eligible based on patient's age to complete this topic documented as of this encounter Medical Devices Implanted Type Area Box Hinge And Lock Attacher Device Identifier Shelf Expiration Date Model / Serial / Lot 7mm Lord Acis Cage Implanted:Qty: 2 on 12/29/2012 [place] [facility] [place] Spine Cervical JNJ : DEPUY SPINE [...] Other - (no specific identity) Health Care Trucker (appointed verbally by patient or by statute hierarchy) Care Teams Fertilizing Machine Operator Relationship Specialty Start Date End Date Haley Alan DO [address] [place] [address] PCP - General Family Medicine 03/04/17 documented as of this encounter
--- OUTSIDE RECORDS SUMMARY | 2023-08-06 04:02 | External Medical Summary | Summary of Care ---
Author Name Unknown Organization [facility] Address [address] [place] [address] Phone [phone] Care Team Providers Care Gear Technician Name Role Phone Haley Alan DO Primary Care Provider Reason for Visit * Reason Onset Date Comments Med Request 07/27/2023 Encounter Details Date Type Department Care Team (Late st Contact Info) Description 07/27/2023 Telephone Family Practice [facility] [address] [facility] [place] [address] Haley Alan DO [address] [facility] [place] [address] Med Request Allergies Active Allergy Reactions Criticality [...] Patient Refused) Pneumococcal Conjugate Vacci ne, 20-valent ([id number]) 05/13/2022 Pneumococcal Polysaccharide PPV23 (Pneumovax) 05/18/2012 SEASONAL [...] encounter Miscellaneous Notes * Telephone Encounter - Haley Alan DO [...] Alan DO * Telephone Encounter - Leida Jodran CPhT - 07/27/2023 8:45 AM EST Pt [...] it Thank you, Leida Jordan CPhT II Resin Painter [facility] ([facility]) (Formerly Telepharmacy) 07/27/2023, 8:45 AM documented in this encounter Plan of Treatment Upcoming Encounters Date Type Department Care Team (Late st Contact Info) Description 08/31/2023 10:00 AM EST Office Visit Pharmacy, [facility] [address] [place] [address] Pharmacist1, [facility] [address] [place] [address] 11/11/2023 10:00 AM EST Office Visit Family Practice [facility] [place] [address] [place] [address] Haley Alan DO [address] [place] [address] Health Maintenance Due Date Last Done Comments Alpha-1 Antitrypsin 1977 Fecal Occult Blood Test 2004 Sigmoidoscopy 2004 Hepatitis B (3 of 3 - Risk 3-dose series) 11/15/2014 09/20/2014, 02/08/2014 DISCUSS TOBACCO CESSATION (REFER TO SMARTSET #5384) 08/15/2016 08/15/2015 Depression Screening 10/21/2018 10/21/2017 Wallace's [...] 05/07/2021, Additional history exists Mammogram 05/25/2024 05/25/2023, 03/0 05/2022, 05/09/2020, Additional history exists O2 ASSESSMENT [...] 05/18/2012 LUNG CANCER SCREENING - USE SMARTSET 13858 Completed 12/08/2022, 11/25/2021 GARDASIL-HPV IMMUNIZATION SERIES Aged Out No longer eligible based on patient's age to complete this topic MENINGOCOCCAL (MENACTRA/MENVEO) Aged Out No longer eligible based on patient's age to complete this topic documented as of this encounter Medical Devices Implanted Type Area Supervisor Furnace Room Device Identifier Shelf Expiration Date Model / Serial / Lot 7mm Lord Acis Cage Implanted:Qty: 2 on 12/29/2012 at [place] [facility] [place] N/A: Spine Cervical JNJ : DEPUY SPINE [...] Other - (no specific identity) Health Care Associate Research Scientist (appointed verbally by patient or by statute hierarchy) Care Teams Gear Technician Relationship Specialty Start Date End Date Haley Alan DO [address] [place] [address] PCP - General Family Medicine 03/04/17 documented as of this encounter
--- OUTSIDE RECORDS SUMMARY | 2023-08-06 04:02 | External Medical Summary | Summary of Care ---
Author Name Unknown Organization [facility] Address [address] [place] [address] Phone [phone] Care Team Providers Care Automotive Fleet Supervisor Name Role Phone Haley Alan DO Primary Care Provider Reason for Visit * Reason Onset Date Comments Med Request 07/27/2023 Encounter Details Date Type Department Care Team (Late st Contact Info) Description 07/27/2023 Telephone Family Practice [facility] [address] [facility] [place] [address] Haley Alan DO [address] [facility] [place] [address] Med Request Allergies Active Allergy Reactions Criticality Noted Date Comments Empagliflozin Diarrhea,Other (Please comment) 12/04/2020 Uncontrollable dizziness Shellfish-Derived Products Edema airway High 05/05/2020 documented as of this encounter (statuses as of 08/01/2023) Medications Medication Sig Dispensed Refills Start Date [...] as of this encounter (statuses as of 08/01/2023) Active Problems Problem Noted Date Diagnosed Date [...] as of this encounter (statuses as of 08/01/2023) Resolved Problems Problem Noted Date Diagnosed Date [...] as of this encounter (statuses as of 08/01/2023) Immunizations Name Administration Dates Next Due COVID-19 mRNA, LNP-s, No Pre serve, 2-Dose Series (Pfizer) 08/12/2021,12/08/2020,11/12/2020 Hepatitis B, 20+ yrs 09/20/2014,02/09/20 14,01/26/2014(Defer red: Patient Refused) Pneumococcal Conjugate Vacci ne, 20-valent ([id number]) 05/13/2022 Pneumococcal Polysaccharide PPV23 (Pneumovax) 05/18/2012 SEASONAL [...] Telephone Encounter - Letitia Zamudio OSA - 08/01/2023 8:27 AM EST Several attempts Letter sent * Telephone Encounter - Letitia Zamudio OSA - 07/29/2023 8:33 AM EST Lmom 07/29 * Telephone Encounter - Letitia Zamudio OSA [...] it Thank you, Leida Jordan CPhT II Supervisor Sewing Department [facility] ([facility]) (Formerly Telepharmacy) 07/27/2023, 8:45 AM documented in this encounter Plan of Treatment Upcoming Encounters Date Type Department Care Team (Late st Contact Info) Description 08/31/2023 10:00 AM EST Office Visit Pharmacy, [facility] [address] [facility] [place], [place] [address] Pharmacist1, [facility] [address] [place] [address] 11/11/2023 10:00 AM EST Office Visit Family Practice [facility] [place] [address] [facility] [place] [address] Haley Alan, [address] [facility] [place] [address] Health Maintenance Due Date Last Done Comments [...] 05/07/2021, Additional history exists Mammogram 05/25/2024 05/25/2023, 03/05/2022, 05/09/2020, Additional history exists O2 ASSESSMENT COMPLETED [...] 05/18/2012 LUNG CANCER SCREENING - USE SMARTSET 10399 Completed 12/08/2022, 11/25/2021 GARDASIL-HPV IMMUNIZATION SERIES Aged Out No longer eligible based on patient's age to complete this topic MENINGOCOCCAL (MENACTRA/MENVEO) Aged Out No longer eligible based on patient's age to complete this topic documented as of this encounter Medical Devices Implanted Type Area Spinning Bath Person Device Identifier Shelf Expiration Date Model / Serial / Lot 7mm Lord Acis Cage Implanted:Qty: 2 on 12/29/[place] [facility] [place] Spine Cervical JNJ [...] Name Relationship Healthcare Agent Relationship Communication Lida Plaacios Other - (no specific identity) Health Care Industrial Electrical Technician (appointed verbally by patient or by statute hierarchy) Care Teams Automotive Fleet Supervisor Relationship Specialty Start Date End Date Haley Alan DO [address] [place] [address] PCP - General Family Medicine 03/04/17 documented as of this encounter
--- OUTSIDE RECORDS SUMMARY | 2023-08-06 04:02 | External Medical Summary ---
Author Name Unknown Address Unknown Organization K09:[facility] [place] [place] [address] Laboratory Report Ordering Provider Test Date Status [id number] 07/06/2023 09:35:31 Final Observation Date Value Abnormality Reference (Units ) Status HbA1C 07/06/2023 09:35:31 8.9 Above high normal 4. 0-5.6 (%) Final Performing Location [facility] [place] [id number]
--- OUTSIDE RECORDS SUMMARY | 2023-08-06 04:02 | External Medical Summary | Summary of Care ---
Author Name Unknown Organization [facility] Address [address] [place] [address] Phone [phone] Care Team Providers Care Bioinformaticist Name Role Phone Haley Alan DO Primary Care Provider Reason for Visit * Reason Onset Date Comments Med Request 07/27/2023 Encounter Details Date Type Department Care Team (Late st Contact Info) Description 07/27/2023 Telephone Family Practice [facility] [address] [facility] [place] [address] Haley Alan DO [address] [facility] [place] [address] Med Request Allergies Active Allergy Reactions Criticality Noted Date Comments Empagliflozin Diarrhea,Other (Please comment) 12/04/2020 Uncontrollable dizziness Shellfish-Derived Products Edema airway High 05/05/2020 documented as of this encounter (statuses as of 07/29/2023) Medications Medication Sig Dispensed Refills Start Date [...] as of this encounter (statuses as of 07/29/2023) Active Problems Problem Noted Date Diagnosed Date [...] as of this encounter (statuses as of 07/29/2023) Resolved Problems Problem Noted Date Diagnosed Date [...] as of this encounter (statuses as of 07/29/2023) Immunizations Name Administration Dates Next Due COVID-19 mRNA, LNP-s, No Pre serve, 2-Dose Series (Pfizer) 08/12/2021,12/08/2020,11/12/2020 Hepatitis B, 20+ yrs 09/20/2014,02/09/20 14,01/26/2014(Defer red: Patient Refused) Pneumococcal Conjugate Vacci ne, 20-valent ([id number]) 05/13/2022 Pneumococcal Polysaccharide PPV23 (Pneumovax) 05/18/2012 SEASONAL [...] it Thank you, Leida Jordan CPhT II Global Commodity Manager [facility] ([facility]) (Formerly Telepharmacy) 07/27/2023, 8:45 AM documented in this encounter Plan of Treatment Upcoming Encounters Date Type Department Care Team (Late st Contact Info) Description 08/31/2023 10:00 AM EST Office Visit Pharmacy, [place] [facility] [address] [place] [address] Pharmacist1, [facility] [address] [place] [address] 11/11/2023 10:00 AM EST Office Visit Family Practice [place] [facility] [address] [place] [address] Haley Alan, [address] [place] [address] Health Maintenance Due Date Last Done Comments [...] 05/07/2021, Additional history exists Mammogram 05/25/2024 05/25/2023, 030 05/2022, 05/09/2020, Additional history exists O2 ASSESSMENT [...] 05/18/2012 LUNG CANCER SCREENING - USE SMARTSET 84952 Completed 12/08/2022, 11/25/2021 GARDASIL-HPV IMMUNIZATION SERIES Aged Out No longer eligible based on patient's age to complete this topic MENINGOCOCCAL (MENACTRA/MENVEO) Aged Out No longer eligible based on patient's age to complete this topic documented as of this encounter Medical Devices Implanted Type Area Ecg Technician Device Identifier Shelf Expiration Date Model / Serial / Lot 7mm Lord Acis Cage Implanted:Qty: 2 on 12/29/2012 at OR [facility] [place] N/A: Spine Cervical JNJ : DEPUY SPINE [...] Other - (no specific identity) Health Care Smelter Charger (appointed verbally by patient or by statute hierarchy) Care Teams Bioinformaticist Relationship Specialty Start Date End Date Haley Alan DO [address] [place] [address] PCP - General Family Medicine 03/04/17 documented as of this encounter
--- OUTSIDE RECORDS SUMMARY | 2023-08-06 04:03 | External Medical Summary | Summary of Care ---
Author Name Unknown Organization [facility] Address [address] [place] [address] Phone [phone] Care Team Providers Care Client Services Coordinator Name Role Phone Haley Alan DO Primary Care Provider Encounter Details Date Type Department Care Team Description 06/13/2023 Orders Only Outcomes Research Department [address] [place] [address] Angela Higgins CHRA My[facility] Research Other*[id number] Allergies Active Allergy Reactions Severity Noted Date Comments Empagliflozin Diarrhea,Other (Please comment) 12/04/2020 Uncontrollable dizziness Shellfish-Derived Products Edema airway High 05/05/2020 documented as of this encounter (statuses as of 06/13/2023) Medications Medication Sig Dispensed Refills Start Date [...] as of this encounter (statuses as of 06/13/2023) Active Problems Problem Noted Date TERMINATED MEDICATION [...] as of this encounter (statuses as of 06/13/2023) Resolved Problems Problem Noted Date Resolved Date [...] as of this encounter (statuses as of 06/13/2023) Immunizations Name Administration Dates Next Due COVID-19 mRNA, LNP-s, No Pre serve, 2-Dose Series (SodaHead) 08/12/2021,12/08/2020,11/12/2020 Hepatitis B, 20+ yrs 09/20/2014,02/09/20 14,01/26/2014(Defer red: Patient Refused) Pneumococcal Conjugate Vacci ne, 20-valent ([id number]) 05/13/2022 Pneumococcal Polysaccharide PPV23 (Pneumovax) 05/18/2012 Seasonal Influenza, PF, 6 mo ns & Above, IM , (Flulaval) 07/08/2022,06/10/2021,06/12/2020,07/10,08/08/2018,09/05/2017 Seasonal Influenza, Quadriva lent, No Preserve, [...] on file documented as of this encounter Plan of Treatment Upcoming Encounters Date Type Specialty Care Team Description 07/06/2023 Office Visit Pharmacy Pharmacist1, [facility] [address] [place] [address] 11/11/2023 Office Visit Family Medicine Haley Alan DO [address] [place] [address] Scheduled Orders Name Type Priority Associated Diagnoses Orde r Schedule MYCODE SUBSEQUENT ADULT Lab Routine My[facility] Research Other*[id number] Every 6 Months for 2 Occurrences starting 06/13/2023 until 07/02/2024 Health Maintenance Due Date Last Done Comments Alpha-1 Antitrypsin 1977 Fecal Occult Blood Test 2004 Sigmoidoscopy 2004 Hepatitis B (3 of 3 - 19+ 3-dose series) 11/15/2014 09/20/2014, 02/08/2014 DISCUSS TOBACCO CESSATION (REFER TO SMARTSET #5642) 08/15/2016 08/15/2015 Depression Screening 10/21/2018 10/21/2017 COVID-19 Vaccine (4 - Pfizer series) 10/07/2021 08/12/2021, 12/08/2020, 11/12/2020 DIABETES-EYE EXAM 06/02/2022 06/02/2021, , 12/13/2018, Additional history exists Colonoscopy 07/26/2022 07/26/2012, 03/2012, 04/15/2005, Additional history exists GFR 05/13/2023 05/13/2022, 10/21, 04/13/2021, Additional history exists Influenza Vaccine (FLU shot) (#1) 2023 07/08/2022, [...] 05/18/2012 LUNG CANCER SCREENING - USE SMARTSET 95694 Completed 12/08/2022, 11/25/2021 GARDASIL-HPV IMMUNIZATION SERIES Aged Out No longer eligible based on patient's age to complete this topic MENINGOCOCCAL (MENACTRA/MENVEO) Aged Out No longer eligible based on patient's age to complete this topic documented as of this encounter Medical Devices Implanted Type Area Shoe Salesman Device Identifier Shelf Expiration Date Model / Serial / Lot 7mm Lord Acis Cage Implanted:Qty: 2 on 12/29/2012 at [place] [facility] [place] N/A: Spine Cervical JNJ : DEPUY SPINE [id number] / / documented as of this encounter Visit Diagnoses Diagnosis MyCode Research Other*[id number] documented in this encounter Advance Directives Latest [...] Other - (no specific identity) Health Care Agricultural Adviser (appointed verbally by patient or by statute hierarchy) Care Teams Client Services Coordinator Relationship Specialty Start Date End Date Haley Alan DO [address] [place] [address] PCP - General Family Medicine 03/04/17 documented as of this encounter
--- OUTSIDE RECORDS SUMMARY | 2023-08-06 04:03 | External Medical Summary | Summary of Care ---
Author Name Unknown Organization [facility] Address [address] [place] [address] Phone [phone] Care Team Providers Care Horseradish Grinder Name Role Phone Dayanna Haley Miller DO Primary Care Provider Reason for Visit * Reason Comments case management Encounter Details Date Type Department Care Team Description 05/10/2023 Oracle R12 DeveloperPatient Care Associate Internal Medicine [employer] [place] [address] [place] [address] Helga Jenkins, RN [address] [place] [address] Medical home patient encounter* Allergies Active Allergy Reactions Severity Noted Date Comments Empagliflozin Diarrhea,Other (Please comment) 12/04/2020 Uncontrollable dizziness Shellfish-Derived Products Edema airway High 05/05/2020 documented as of this encounter (statuses as of 05/10/2023) Medications Medication Sig Dispensed Refills Start Date End Date Status ASPIRIN 81 MG PO TABS Take 81 mg by mouth at bedtime. 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 Food insecurity 05/31/2022 Overview: Per [facility] Protocol S/P cervical spinal fusion [...] as of this encounter (statuses as of 05/10/2023) Resolved Problems Problem Noted Date Resolved Date [...] as of this encounter (statuses as of 05/10/2023) Immunizations Name Administration Dates Next Due COVID-19 mRNA, LNP-s, No Pre serve, 2-Dose Series (ReferBright) 08/12/2021,12/08/2020,11/12/2020 Hepatitis B, 20+ yrs 09/20/2014,02/09/20 14,01/26/2014(Defer red: Patient Refused) Pneumococcal Conjugate Vacci ne, 20-valent ([id number]) 05/13/2022 Pneumococcal Polysaccharide PPV23 (Pneumovax) 05/18/2012 Seasonal [...] as of this encounter Progress Notes * Helga Jenkins RN - 05/10/2023 12:30 PM EDT Follow-up Routine Attempted Phone Call Second Attempt Call Outcome Left Voicemail/Message Plan To attempt another outreach Spoke with pt briefly and she requested call back tomorrow to complete assessment. Will attempt to reach tomorrow again. documented in this encounter Plan of Treatment Upcoming Encounters Date Type Specialty Care Team Description 05/16/2023 Imaging Radiology 05/25/2023 Imaging Radiology 06/10/2023 Office Visit Pulmonary Jesse Blount, DO [address] [place] [address] 07/06/2023 Office Visit Pharmacy Pharmacist1, [facility] [address] [place] [address] 11/11/2023 Office Visit Family Medicine Haley Alan, [address] [place], [place] [address] Health Maintenance Due Date Last Done Comments Alpha-1 Antitrypsin 1977 Fecal Occult Blood Test 2004 Sigmoidoscopy 2004 Hepatitis B (3 of 3 - 19+ 3-dose series) 11/15/2014 09/20/2014, 02/08/2014 Depression Screening, Annual for Pts 12 and Over 10/21/2018 10/21/2017 COVID-19 Vaccine (4 - Pfizer series) 10/07/2021 08/12/2021, 12/08/2020, 11/12/2020 DIABETES-EYE EXAM 06/02/2022 06/02/2021, , 12/13/2018, Additional history exists Colonoscopy 07/26/2022 07/26/2012, 03/2012, 04/15/2005, Additional history exists Mammogram 11/25/2022 11/25/2021, 04/20, 01/23/2019, Additional history exists GFR 05/13/2023 05/13/2022, 10/21, 04/13/2021, Additional history exists Influenza Vaccine (FLU shot) (#1) 2023 07/08/2022, 06/10/2021, 06/12/2020, Additional history exists HbA1c 08/31/2023 03/01/2023, 10/21, 05/13/2022, Additional history exists Albumin/Creatinine Ratio 11/15/2023 023, 07/30/2021, 04/23/2020, Additional history exists DIABETES-FOOT EXAM 04/25/2024 04/25/2023, 0 05/13/2022, 05/07/2021, Additional history exists O2 ASSESSMENT COMPLETED IN PAST YEAR FOR COPD 04/25/2024 04/25/2023 Cologuard 04/16/2026 04/16/2023, 03/20, 04/11/2023 Colorectal Cancer Screening 04/16/2026 DTaP,Tdap,and Td Vaccines (3 - Td or Tdap) 06/03/2026 06/03/2016, 04/22/2006 Lipid Panel 11/15/2027 11/15/2022, 10/21, 04/23/2020, Additional history exists Zoster Vaccines Completed 11/05/2020, 05/06/2020 Pneumococcal Vaccine: Pediatrics (0 to 5 Years) and At-Risk Patients (6 to 64 Years) Completed 05/13/2022, 05/18/2012 LUNG CANCER SCREENING - USE SMARTSET 10564 Completed 12/08/2022, 11/25/2021 GARDASIL-HPV IMMUNIZATION SERIES Aged Out No longer eligible based on patient's age to complete this topic MENINGOCOCCAL (MENACTRA/MENVEO) Aged Out No longer eligible based on patient's age to complete this topic documented as of this encounter Medical Devices Implanted Type Area Manager It Security Device Identifier Shelf Expiration Date Model / Serial / Lot 7mm Lord Acis Cage Implanted:Qty: 2 on 12/29/2012 at [place] [facility] [place] N/A: Spine Cervical JNJ : DEPUY SPINE [id number] / / documented as of this encounter Visit Diagnoses Diagnosis Medical home patient encounter- Primary Other specified examination documented in this encounter Advance Directives Latest [...] Other - (no specific identity) Health Care Pharmacy Technician Instructor (appointed verbally by patient or by statute hierarchy) Care Teams Horseradish Grinder Relationship Specialty Start Date End Date Haley Alan DO [address] [place] [address] PCP - General Family Medicine 03/04/17 documented as of this encounter
--- OUTSIDE RECORDS SUMMARY | 2023-08-06 04:03 | External Medical Summary | Summary of Care ---
Author Name Unknown Organization [facility] Address [address] [place] [address] Phone [phone] Care Team Providers Care Medical Photographer Name Role Phone Haley Alan DO Primary Care Provider Reason for Visit * Reason Onset Date Comments Health Maintenance 06/23/2023 Encounter Details Date Type Department Care Team Description 06/23/2023 Telephone Family Practice [place] [facility] [address] [facility] [place] [phone] Haley Alan DO [address] [facility] [place] [address] Health Maintenance Allergies Active Allergy Reactions Severity Noted Date [...] mRNA, LNP-s, No Pre serve, 2-Dose Series (Nexeon) 08/12/2021,12/08/2020,11/12/2020 Hepatitis B, 20+ yrs 09/20/2014,02/09/20 14,01/26/2014(Defer red: Patient Refused) Pneumococcal Conjugate Vacci ne, 20-valent ([id number]) 05/13/2022 Pneumococcal Polysaccharide PPV23 (Pneumovax) 05/18/2012 SEASONAL [...] encounter Miscellaneous Notes * Telephone Encounter - Melinda Coffman LPN - 06/23/2023 11:33 AM EDT Care Gaps Comprehensive Care Outreach Last Office/Telemedicine Visit: 04/25/2023 (in office), Visit date not found (telemedicine) Next Office Visit: 11/11/2023 Hemoglobin AIC Results: Lab Results Component Value Date/Time HEMOGLOBIN A1C - [facility] 9.2 (H) 11/15/2022 09:30 AM HEMOGLOBIN A1C - [facility] 10.0 (H) 05/13/2022 10:47 AM HEMOGLOBIN A1C - [facility] 9.9 (H) 11/10/2021 11:09 AM HEMOGLOBIN A1C - [facility] 8.3 (H) 04/23/2020 07:53 AM HEMOGLOBIN A1C - [facility] 9.4 04/11/2019 12:00 AM HEMOGLOBIN A1C - [facility] 8.5 (H) 01/02/2019 01:17 PM HEMOGLOBIN A1C POCT - [facility] 8.5 (H) 03/01/2023 09:32 AM HEMOGLOBIN A1C POCT - [facility] 8.8 (H) 07/09/2021 10:34 AM HEMOGLOBIN A1C POCT - [facility] 8.7 (H) 03/27/2021 09:25 AM Reviewed Health Maintenance below: Health Maintenance Topic Date Due Alpha-1 Antitrypsin Never done Hepatitis B (3 of 3 - 19+ 3-dose series) 11/15/2014 DISCUSS TOBACCO CESSATION (REFER TO SMARTSET #3291) 08/15/2016 Depression Screening 10/21/2018 DIABETES-EYE EXAM 06/02/2022 GFR 05/13/2023 Influenza Vaccine (FLU shot) (1) 05/20/2023 COVID-19 Vaccine (4 - season) 2023 HbA1c 08/31/2023 Albumin/Creatinine Ratio 11/15/2023 Eye labs flu Care Gap Outreach Action Taken: Left message documented in this encounter Plan of Treatment Upcoming Encounters Date Type Specialty Care Team Description 07/06/2023 Office Visit Pharmacy Pharmacist1, [facility] [address] [place] [address] 11/11/2023 Office Visit Family Medicine Haley Alan DO [address] [place] [address] Health Maintenance Due Date Last Done Comments Alpha-1 Antitrypsin 1977 Fecal Occult Blood Test 2004 Sigmoidoscopy 2004 Hepatitis B (3 of 3 - 19+ 3-dose series) 11/15/2014 09/20/2014, 02/08/2014 DISCUSS TOBACCO CESSATION (REFER TO SMARTSET #3291) 08/15/2016 08/15/2015 Depression Screening 10/21/2018 10/21/2017 DIABETES-EYE EXAM 06/02/2022 06/02/2021, , 12/13/2018, Additional history exists Colonoscopy 07/26/2022 07/26/2012, 1103/2012, 04/15/2005, Additional history exists GFR 05/13/2023 05/13/2022, [...] 05/18/2012 LUNG CANCER SCREENING - USE SMARTSET 08083 Completed 12/08/2022, 11/25/2021 GARDASIL-HPV IMMUNIZATION SERIES Aged Out No longer eligible based on patient's age to complete this topic MENINGOCOCCAL (MENACTRA/MENVEO) Aged Out No longer eligible based on patient's age to complete this topic documented as of this encounter Medical Devices Implanted Type Area Starchmaker Device Identifier Shelf Expiration Date Model / Serial / Lot 7mm Lord Acis Cage Implanted:Qty: 2 on 12/29/2012 at [place] [facility] [place] N/A: Spine Cervical JNJ [...] Other - (no specific identity) Health Care Health Information Provider (appointed verbally by patient or by statute hierarchy) Care Teams Medical Photographer Relationship Specialty Start Date End Date Haley Alan DO [address] [place] [address] PCP - General Family Medicine 03/04/17 documented as of this encounter
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
--- OUTSIDE RECORDS SUMMARY | 2023-08-06 04:03 | External Medical Summary | Summary of Care ---
Author Name Unknown Organization [facility] Address [address] [place] [address] Phone [phone] Care Team Providers Care Cylinder Head Assembler Name Role Phone Haley Alan DO Primary Care Provider Encounter Details Date Type Department Care Team Description 05/27/2023 Orders Only Family Practice [facility] [place] [address] [facility] [place] [id number] Haley Alan DO [address] [facility] [place] [address] Encounter for screening mammogram for breast cancer* Allergies Active Allergy Reactions Severity Noted Date Comments Empagliflozin Diarrhea,Other (Please comment) 12/04/2020 Uncontrollable dizziness Shellfish-Derived Products Edema airway High 05/05/2020 documented as of this encounter (statuses as of 05/27/2023) Medications Medication Sig Dispensed Refills Start Date [...] as of this encounter (statuses as of 05/27/2023) Active Problems Problem Noted Date TERMINATED MEDICATION USAGE AGREEMENT Overview: As of 12/22/2022, 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 Food insecurity 05/31/2022 Overview: Per [facility] Protocol S/P cervical spinal fusion 01/12/2022 [...] as of this encounter (statuses as of 05/27/2023) Resolved Problems Problem Noted Date Resolved Date [...] as of this encounter (statuses as of 05/27/2023) Immunizations Name Administration Dates Next Due COVID-19 mRNA, LNP-s, No Pre serve, 2-Dose Series ([employer]) 08/12/2021,12/08/2020,11/12/2020 Hepatitis B, 20+ yrs 09/20/2014,02/09/20 14,01/26/2014(Defer red: Patient Refused) Pneumococcal Conjugate Vacci ne, 20-valent ([id number]) 05/13/2022 Pneumococcal Polysaccharide PPV23 (Pneumovax) 05/18/2012 Seasonal [...] as of this encounter Progress Notes * Chelo Rome RN - 05/27/2023 10:24 AM EDT Reason for Call: order Contact: [employer] Contact Type: Orders Outcome: Negative Mammogram letter sent to patient by [facility]. New mammogram order placed for 1 year as recommended. Face to face time spent with Patient (minutes): 0 Total Time including non face to face (minutes): 10 documented in this encounter Plan of Treatment Upcoming Encounters Date Type Specialty Care Team Description 06/10/2023 Office Visit Pulmonary Jesse Blount M, DO [address] [place] [address] 07/06/2023 Office Visit Pharmacy Pharmacist1[facility] [address] [facility] [place] [address] 11/11/2023 Office Visit Family Medicine Haley Alan, [address] [facility] [place] [address] Scheduled Orders Name Type Priority Associated Diagnoses Orde r Schedule MAMMOGRAM SCREENING ECHO BILATERAL Medical Imaging Routine Encounter for screening mammogram for breast cancer Expected: 05/28/2024, Expires: 06/26/2024 Health Maintenance Due Date Last Done Comments Alpha-1 Antitrypsin 1977 Fecal Occult Blood Test 2004 Sigmoidoscopy 2004 Hepatitis B (3 of 3 - 19+ 3-dose series) 11/15/2014 09/20/2014, 02/08/2014 Depression Screening 10/21/2018 10/21/2017 COVID-19 Vaccine (4 [...] FOR COPD 04/25/2024 04/25/2023 Mammogram 05/25/2024 05/25/2023, 03/0 05/2022, 05/09/2020, Additional history exists Cologuard 04/16/2026 04/16/2023, 03/20, 04/11/2023 Colorectal Cancer Screening 04/16/2026 DTaP,Tdap,and Td Vaccines (3 - Td or Tdap) 06/03/2026 06/03/2016, 04/22/2006 Lipid Panel 11/15/2027 11/15/2022, 10/21, 04/23/2020, Additional history exists Zoster Vaccines Completed 11/05/2020, 05/06/2020 Pneumococcal Vaccine: Pediatrics (0 to 5 Years) and At-Risk Patients (6 to 64 Years) Completed 05/13/2022, 05/18/2012 LUNG CANCER SCREENING - USE SMARTSET [id number] Completed 12/08/2022, 11/25/2021 GARDASIL-HPV IMMUNIZATION SERIES Aged Out No longer eligible based on patient's age to complete this topic MENINGOCOCCAL (MENACTRA/MENVEO) Aged Out No longer eligible based on patient's age to complete this topic documented as of this encounter Medical Devices Implanted Type Area Snuff Maker Device Identifier Shelf Expiration Date Model / Serial / Lot 7mm [employer] Cage Implanted:Qty: 2 [place] [facility] [place]A: Spine Cervical JNJ : DEPUY SPINE [id number] / / documented as of this encounter Visit Diagnoses Diagnosis Encounter for screening mammogram for breast cancer- Primary documented in this encounter Advance Directives [...] Other - (no specific identity) Health Care Parking Cashier (appointed verbally by patient or by statute hierarchy) Care Teams Cylinder Head Assembler Relationship Specialty Start Date End Date Haley Alan DO [address] [facility] [place] [address] PCP - General Family Medicine 03/04/17 documented as of this encounter
--- OUTSIDE RECORDS SUMMARY | 2023-08-06 04:03 | External Medical Summary | Summary of Care ---
Author Name Unknown Organization [facility] Address [address] [place] [address] Phone [phone] Care Team Providers Care Layer Off Name Role Phone Dayanna Haley Miller DO Primary Care Provider Reason for Visit * Reason Comments case management Encounter Details Date Type Department Care Team Description 05/16/2023 Web Operations SpecialistJacquard Loom Weaver Internal Medicine [facility] [place] [address] [place] [address] Helga Jenkins, RN [address] [place] [address] Medical home patient encounter* Allergies Active Allergy Reactions Severity Noted Date Comments Empagliflozin Diarrhea,Other (Please comment) 12/04/2020 Uncontrollable dizziness Shellfish-Derived Products Edema airway High 05/05/2020 documented as of this encounter (statuses as of 05/16/2023) Medications Medication Sig Dispensed Refills Start Date [...] as of this encounter (statuses as of 05/16/2023) Active Problems Problem Noted Date TERMINATED MEDICATION USAGE AGREEMENT Overview: As of 12/22/2022, 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 Food insecurity 05/31/2022 Overview: Per [facility] Protocol S/P cervical spinal fusion [...] as of this encounter (statuses as of 05/16/2023) Resolved Problems Problem Noted Date Resolved Date [...] as of this encounter (statuses as of 05/16/2023) Immunizations Name Administration Dates Next Due COVID-19 mRNA, LNP-s, No Pre serve, 2-Dose Series (Windation) 08/12/2021,12/08/2020,11/12/2020 Hepatitis B, 20+ yrs 09/20/2014,02/09/20 14,01/26/2014(Defer red: Patient Refused) Pneumococcal Conjugate Vacci ne, 20-valent ([id number]) 05/13/2022 Pneumococcal Polysaccharide PPV23 (Pneumovax) 05/18/2012 Seasonal [...] Progress Notes * Helga Jenkins RN - 05/16/2023 3:32 PM EDT Follow-up Post Discharge Attempted Phone Call Third Attempt Call Outcome Unable to Leave Message Plan To send letter documented in this encounter Plan of Treatment Upcoming Encounters Date Type Specialty Care Team Description 05/25/2023 Imaging Radiology 06/10/2023 Office Visit Pulmonary Jesse Blount, DO [address] [place] [address] 07/06/2023 Office Visit Pharmacy Pharmacist1, [facility] [address] [place] [address] 11/11/2023 Office Visit Family Medicine Haley Alan, DO [address] [place] [address] Health Maintenance Due Date Last Done Comments [...] 05/18/2012 LUNG CANCER SCREENING - USE SMARTSET 08791 Completed 12/08/2022, 11/25/2021 GARDASIL-HPV IMMUNIZATION SERIES Aged Out No longer eligible based on patient's age to complete this topic MENINGOCOCCAL (MENACTRA/MENVEO) Aged Out No longer eligible based on patient's age to complete this topic documented as of this encounter Medical Devices Implanted Type Area Special Shopper Device Identifier Shelf Expiration Date Model / Serial / Lot 7mm Lord Acis Cage Implanted:Qty: 2 on 12/29/2012 at OR [facility] [place] N/A: Spine Cervical JNJ : DEPUY SPINE [...] Other - (no specific identity) Health Care Recreation Adviser (appointed verbally by patient or by statute hierarchy) Care Teams Layer Off Relationship Specialty Start Date End Date Haley Alan DO [address] [place] [address] PCP - General Family Medicine 03/04/17 documented as of this encounter
--- OUTSIDE RECORDS SUMMARY | 2023-08-06 04:04 | External Medical Summary | Summary of Care ---
Author Name Unknown Organization [facility] Address [address] [place] [address] Phone [phone] Care Team Providers Care Real Estate Closer Name Role Phone Dayanna Haley Deally Primary Care Provider Reason for Visit * Reason Onset Date Comments case management 04/26/2023 Encounter Details Date Type Department Care Team Description 04/26/2023 Autoglazier Telephone General Internal Medicine [facility] [place] [address] [place], [place] [id number] Helga Jenkins, RN [address] [place] [address] case management Allergies Active Allergy Reactions Severity Noted Date Comments Empagliflozin Diarrhea,Other (Please comment) 12/04/2020 Uncontrollable dizziness Shellfish-Derived Products Edema airway High 05/05/2020 documented as of this encounter (statuses as of 04/29/2023) Medications Medication Sig Dispensed Refills Start Date [...] as of this encounter (statuses as of 04/29/2023) Active Problems Problem Noted Date TERMINATED MEDICATION [...] as of this encounter (statuses as of 04/29/2023) Resolved Problems Problem Noted Date Resolved Date [...] as of this encounter (statuses as of 04/29/2023) Immunizations Name Administration Dates Next Due COVID-19 mRNA, LNP-s, No Pre serve, 2-Dose Series (Talicious) 08/12/2021,12/08/2020,11/12/2020 Hepatitis B, 20+ yrs 09/20/2014,02/09/20 14,01/26/2014(Defer red: Patient Refused) Pneumococcal Conjugate Vacci ne, 20-valent ([id number]) 05/13/2022 Pneumococcal Polysaccharide PPV23 (Pneumovax) 05/18/2012 Seasonal Influenza, Quadriva lent, No Preserve, 6 Mons & Above, IM 07/08/2022,06/10/2021,06/12/2020,07/10,08/08/2018,09/05/2017 Seasonal Influenza, Quadriva lent, No Preserve, [...] encounter Miscellaneous Notes * Telephone Encounter - GALLO Lopez - 04/29/2023 2:58 PM EDT Order faxed to [facility] patient [facility]. * Telephone Encounter - Haley Alan DO - 04/29/2023 11:36 AM EDT Please call, give verbal order to discontinue oxygen (signed DME to D/C O2 also if you need to fax) Haley Alan DO * Telephone Encounter - Helga Jenkins RN - 04/26/2023 2:58 PM EDT SITUATION: Oxygen discontinuation BACKGROUND: Needs order sent to [facility] ASSESSMENT: Patient called requesting an order be sent to [facility] stating that she no longer needs homeoxygen. States that they will not cigar packer and picker her existing equipment without this order. Patient also asking to have all future lab/test results sent by phone call or letter and NOT mychart. RECOMMENDATION: CM will send request to PCP as requested. Dr. Alan-please advise if agreeable to letter as requested. Nursing staff-please assist with providing any future lab/test results via telephone or letter as requested. Thank you. Helga Jenkins RN General Internal Medicine [facility] [address] [facility] [address] documented in this encounter Plan of Treatment Upcoming Encounters Date Type Specialty Care Team Description 05/03/2023 Office Visit Pharmacy [facility]ist1, [facility] [address] [facility] [place] [address] 06/03/2023 Office Visit Family Medicine Haley Alan DO 200 [facility] [place] [address] 06/10/2023 Office Visit Pulmonary Jesse Blount, DO [address] [place] [address] Health Maintenance Due Date Last Done Comments [...] 05/18/2012 LUNG CANCER SCREENING - USE SMARTSET [id number] Completed 12/08/2022, 11/25/2021 GARDASIL-HPV IMMUNIZATION SERIES Aged Out No longer eligible based on patient's age to complete this topic MENINGOCOCCAL (MENACTRA/MENVEO) Aged Out No longer eligible based on patient's age to complete this topic documented as of this encounter Medical Devices Implanted Type Area Pin Drafting Machine Tender Device Identifier Shelf Expiration Date Model / Serial / Lot 7mm Lord Acis Cage Implanted:Qty: 2 on 12[place]29/[place] [facility] [place]A: Spine Cervical JNJ : DEPUY SPINE [id number] / / documented as of this encounter Visit Diagnoses Diagnosis Hypoxemia- Primary documented in this encounter Advance Directives [...] Other - (no specific identity) Health Care Product Safety Specialist (appointed verbally by patient or by statute hierarchy) Care Teams Real Estate Closer Relationship Specialty Start Date End Date Haley Alan DO [address] [place] [address] PCP - General Family Medicine 03/04/17 documented as of this encounter
--- OUTSIDE RECORDS SUMMARY | 2023-08-06 04:04 | External Medical Summary ---
Author Name Unknown Address Unknown Organization K01:LAB[facility]ATORY [facility] - [address] [place] [id number] Laboratory Report Ordering Provider Test Date Status CYNTHIA HARVEY 04/25/2023 13:58:00 Preliminary Observation Date Value Abnormality Reference (Units) Status Bacteria identified in Unspecified specimen by Culture 04/25/2023 13:58:00 No significant growth Preliminary Test: Culture, Urine, Quanti tative
Specimen Source: Urine, Clean Catch
Specimen Type: Urine
Specimen Date: 04/25/2023 1:58 PM
Result Date: 04/26/2023 4:16 PM
Result Status: Preliminary result
Resulting Lab: [facility]
[address]
[facility] [address]

CULTURE

No significant growth

null Performing Location LABORATORY [facility] - [address] [facility] [address]
--- OUTSIDE RECORDS SUMMARY | 2023-08-06 04:04 | External Medical Summary | Summary of Care ---
Author Name Unknown Organization [facility] Address [address] [place] [address] Phone [phone] Care Team Providers Care Heeler Machine Name Role Phone Haley Alan DO Primary Care Provider Encounter Details Date Type Department Care Team Description 04/21/2023 Senior Ux DesignerFelting Machine Operator Practice [facility] [place] [address] [facility] [place] [place] [id number] Neeru Venegas, RN Medical home patient encounter* Allergies Active Allergy Reactions Severity Noted Date Comments Empagliflozin Diarrhea,Other (Please comment) 12/04/2020 Uncontrollable dizziness Shellfish-Derived Products Edema airway High 05/05/2020 documented as of this encounter (statuses as of 04/21/2023) Medications Medication Sig Dispensed Refills Start Date [...] as of this encounter (statuses as of 04/21/2023) Active Problems Problem Noted Date TERMINATED MEDICATION [...] as of this encounter (statuses as of 04/21/2023) Resolved Problems Problem Noted Date Resolved Date [...] as of this encounter (statuses as of 04/21/2023) Immunizations Name Administration Dates Next Due COVID-19 mRNA, LNP-s, No Pre serve, 2-Dose Series (Adform) 08/12/2021,12/08/2020,11/12/2020 Hepatitis B, 20+ yrs 09/20/2014,02/09/20 14,01/26/2014(Defer red: Patient Refused) Pneumococcal Conjugate Vacci ne, 20-valent ([id number]) 05/13/2022 Pneumococcal Polysaccharide PPV23 (Pneumovax) 05/18/2012 Seasonal [...] as of this encounter Progress Notes * Neeru Venegas RN - 04/21/2023 1:54 PM EDT SITUATION: CM call for IMANI week 4 follow up BACKGROUND: Pt admitted for UTI/Pyelonephritis ASSESSMENT: Pt still reports having back pain, but states she is not sure what the pain is from anymore as she does have chronic back problems. She denies any fevers or chills at this time. 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 She statesthat they recently adopted a kitten and she had to help out some of her other kids with issues, so she was not able to come in for a repeat urine. She denies any pain or burning with urination, fevers or chills. She is finished with her antibiotics. RECOMMENDATION: Pt has appointment on 04/25 for hospital d/c follow up. Reviewed 3 red flags with patient (weakness/dizziness, pain or burning with urination, fevers or chills). Neeru Venegas, director alliance marketing [employer] 200 [facility] [place] [address] documented in this encounter Plan of Treatment Upcoming Encounters Date Type Specialty Care Team Description 04/25/2023 Office Visit Family Medicine Haley Alan, [address] [place] [address] 05/03/2023 Office Visit Pharmacy Pharmacist1, [facility] [address] [facility] [place] [address] 06/03/2023 Office Visit Family Medicine Haley Alan DO [address] [place] [address] 06/10/2023 Office Visit Pulmonary Jesse Blount, DO [address] [place] [address] Health Maintenance Due Date Last Done Comments [...] 11/25/2022 11/25/2021, 04/20, 01/23/2019, Additional history exists DIABETES-FOOT EXAM 05/13/2023 05/13/2022, 0 05/07/2021, 05/05/2020, Additional history exists GFR 05/13/2023 05/13/2022, 10/21, 04/13/2021, Additional history exists Influenza Vaccine (FLU shot) (#1) 2023 07/08/2022, 06/10/2021, 06/12/2020, Additional history exists HbA1c 08/31/2023 03/01/2023, 10/21, 05/13/2022, Additional history exists Albumin/Creatinine Ratio 11/15/2023 023, 07/30/2021, 04/23/2020, Additional history exists O2 ASSESSMENT COMPLETED IN PAST YEAR FOR COPD 03/17/2024 03/17/2023 Cologuard 04/11/2026 04/11/2023 Colorectal Cancer Screening 04/11/2026 DTaP,Tdap,and Td Vaccines (3 - Td or Tdap) 06/03/2026 06/03/2016, 04/22/2006 Lipid Panel 11/15/2027 11/15/2022, 10/21, 04/23/2020, Additional history exists Zoster Vaccines Completed 11/05/2020, 05/06/2020 Pneumococcal Vaccine: Pediatrics (0 to 5 Years) and At-Risk Patients (6 to 64 Years) Completed 05/13/2022, 05/18/2012 LUNG CANCER SCREENING - USE SMARTSET [id number] Completed 12/08/2022, 11/25/2021 GARDASIL-HPV IMMUNIZATION SERIES Aged Out No longer eligible based on patient's age to complete this topic MENINGOCOCCAL (MENACTRA/MENVEO) Aged Out No longer eligible based on patient's age to complete this topic documented as of this encounter Medical Devices Implanted Type Area Relay Operator Device Identifier Shelf Expiration Date Model / Serial / Lot 7mm Lord Acis Cage Implanted:Qty: 2 on 12/29/2012 at [place] [facility] [place] N/A: Spine Cervical JNJ : DEPUY SPINE [...] Other - (no specific identity) Health Care Economic Development Director (appointed verbally by patient or by statute hierarchy) Care Teams Heeler Machine Relationship Specialty Start Date End Date Haley Alan DO [address] [place] [address] PCP - General Family Medicine 03/04/17 documented as of this encounter
--- OUTSIDE RECORDS SUMMARY | 2023-08-06 04:04 | External Medical Summary | Summary of Care ---
Author Name Unknown Organization [facility] Address [address] [place] [address] Phone [phone] Care Team Providers Care Station Cleaning Porter Name Role Phone Dayanna Haley Deally Primary Care Provider Reason for Visit * Reason Comments case management Encounter Details Date Type Department Care Team Description 04/13/2023 Project Account ManagerFlight Technician Internal Medicine [address] [place] [address] [place] [address] Helga Jenkins, RN [address] [place] [address] Medical home patient encounter* Allergies Active Allergy Reactions Severity Noted Date Comments Empagliflozin Diarrhea,Other (Please comment) 12/04/2020 Uncontrollable dizziness Shellfish-Derived Products Edema airway High 05/05/2020 documented as of this encounter (statuses as of 04/13/2023) Medications Medication Sig Dispensed Refills Start Date [...] as of this encounter (statuses as of 04/13/2023) Active Problems Problem Noted Date TERMINATED MEDICATION USAGE AGREEMENT Overview: As of 12/22/2022, 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 Food insecurity 05/31/2022 Overview: Per [facility] Protocol S/P cervical spinal fusion [...] as of this encounter (statuses as of 04/13/2023) Resolved Problems Problem Noted Date Resolved Date [...] as of this encounter (statuses as of 04/13/2023) Immunizations Name Administration Dates Next Due COVID-19 mRNA, LNP-s, No Pre serve, 2-Dose Series ([employer]) 08/12/2021,12/08/2020,11/12/2020 Hepatitis B, 20+ yrs 09/20/2014,02/09/20 14,01/26/2014(Defer red: Patient Refused) Pneumococcal Conjugate Vacci ne, 20-valent ([id number]) 05/13/2022 Pneumococcal Polysaccharide PPV23 (Pneumovax) 05/18/2012 Seasonal [...] Progress Notes * Helga Jenkins RN - 04/13/2023 11:03 AM EDT 1. Follow-up Post Discharge 2. Attempted Phone Call First Attempt 3. Call Outcome Unable to Leave Message 4. Plan To attempt another outreach documented in this encounter Plan of Treatment Upcoming Encounters Date Type Specialty Care Team Description 04/25/2023 Office Visit Family Medicine Haley Alan, DO [address] [facility] [place] [address] 05/03/2023 Office Visit Pharmacy Pharmacist1, [facility] [address] [place] [address] 05/05/2023 Procedure Only Endoscopy Mary Levi MD [address] [place] [address] 06/03/2023 Office Visit Family Medicine Haley Alan, DO [address] [facility] [place] [address] 06/10/2023 Office Visit Pulmonary Jesse Blount, DO [address] [place] [address] Health Maintenance Due Date Last Done Comments Alpha-1 Antitrypsin 1977 Cologuard 2004 Fecal Occult Blood Test 2004 Sigmoidoscopy 2004 Hepatitis B (3 of 3 - 19+ 3-dose series) 11/15/2014 09/20/2014, 02/08/2014 Depression Screening, Annual for Pts 12 and Over 10/21/2018 10/21/2017 COVID-19 Vaccine (4 - Pfizer series) 10/07/2021 08/12/2021, 12/08/2020, 11/12/2020 DIABETES-EYE EXAM 06/02/2022 06/02/2021, , 12/13/2018, Additional history exists Colonoscopy 07/26/2022 07/26/2012, 03/2012, 04/15/2005, Additional history exists Colorectal Cancer Screening 07/26/2022 Mammogram 11/25/2022 11/25/2021, 04/20, 01/23/2019, Additional history [...] IN PAST YEAR FOR COPD 03/17/2024 03/17/2023 DTaP,Tdap,and Td Vaccines (3 - Td or Tdap) 06/03/2026 06/03/2016, 04/22/2006 Lipid Panel 11/15/2027 11/15/2022, 10/21, 04/23/2020, Additional history exists Zoster Vaccines Completed 11/05/2020, 05/06/2020 Pneumococcal Vaccine: Pediatrics (0 to 5 Years) and At-Risk Patients (6 to 64 Years) Completed 05/13/2022, 05/18/2012 LUNG CANCER SCREENING - USE SMARTSET [id number] Completed 12/08/2022, 11/25/2021 GARDASIL-HPV IMMUNIZATION SERIES Aged Out No longer eligible based on patient's age to complete this topic MENINGOCOCCAL (MENACTRA/MENVEO) Aged Out No longer eligible based on patient's age to complete this topic documented as of this encounter Medical Devices Implanted Type Area Gravel Hauler Device Identifier Shelf Expiration Date Model / Serial / Lot 7mm Lord Acis Cage Implanted:Qty: 2 on 12/29/2012 at [place] [facility] [place] N/A: Spine Cervical JNJ [...] Other - (no specific identity) Health Care Pelletizer Operator (appointed verbally by patient or by statute hierarchy) Care Teams Station Cleaning Porter Relationship Specialty Start Date End Date Haley Alan DO [address] [place] [address] PCP - General Family Medicine 03/04/17 documented as of this encounter
--- OUTSIDE RECORDS SUMMARY | 2023-08-06 04:04 | External Medical Summary | Summary of Care ---
Author Name Unknown Organization [facility] Address [address] [place] [address] Phone [phone] Care Team Providers Care User Experience Manager Name Role Phone Haley Alan DO Primary Care Provider Reason for Referral * Evaluate & Treat - Unlimited Visits (Within 30 days (routine)) - Authorized Specialty Diagnoses / Procedures Referred By Stephanie urias Referred To Contact Podiatry Diagnoses DM type 2 nursing care encounter (HCC) Haley Alan DO [address] [facility] [address] Referral ID Status Reason Start Date Expiration Date Visits Requested Visits Authorized [id number] Authorized Specialty Services Required 04/25/[phone] Question Answer Referral Priority Within 30 days (routine) Which condition are you referring this patient for? Diabetic foot care/pain Specific condition? Diabetic Foot care Medicare Patient? Yes Can Patient perform routine footcare without assistance? No Does patient have a chronic condition? Yes Has patient been seen in the past 6 months? Yes Date last seen for chronic condition: 04/25/2023 Who saw patient for chronic condition? Dr. Alan * Precert (Within 10 days (routine)) - Authorized Specialty Diagnoses / Procedures Referred By Stephanie urias Referred To Contact Radiology Diagnoses Acute pyelonephritis Colicky RLQ abdominal pain Procedures CT ABD/PELVIS WO IV/ORAL CONTRAST Haley Alan DO [address] [place] [address] Referral ID Status Reason Start Date Expiration Date V isits Requested Visits Authorized [id number] Authorized 04/25/[phone] Reason for Visit * Reason Comments Re-Check Encounter Details Date Type Department Care Team Description 04/25/2023 Office Visit Family Practice State Robbie Milner [address] [place] [address] Haley Alan DO [address] [place] [address] Acute pyelonephritis*; Encounter for screening mammogram for malignant neoplasm of breast; DM type 2 nursing care encounter ([facility]); Colicky RLQ abdominal pain Allergies Active Allergy Reactions Severity Noted Date Comments Empagliflozin Diarrhea,Other (Please comment) 12/04/2020 Uncontrollable dizziness Shellfish-Derived Products Edema airway High 05/05/2020 documented as of this encounter (statuses as of 05/04/2023) Medications Medication Sig Dispensed Refills Start Date [...] of less than or equal to 9.0% ([facility]) INJECT 11 UNITS SUBQ WITH BREAKFAST, 11UNITS [...] Capsule 1 02/25/2023 Active BD Pen Needle Rbe 2nd Gen 32G X 4 MM (Insulin Pen Needle) USE 4 TIMES DAILY FOR INSULIN INJECTION 400 Each 3 02/25/2023 Active Nicotine 7 MG/24HR Transdermal Patch 24 Hour (Nicoderm CQ) 7 mg. 0 03/12/2023 Active Pulse Oximeter For FingerIndications: COPD, moderate (HCC) Use as directed. 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 Food insecurity 05/31/2022 Overview: Per [facility] Protocol S/P cervical spinal fusion [...] as of this encounter (statuses as of 05/04/2023) Resolved Problems Problem Noted Date Resolved Date [...] as of this encounter (statuses as of 05/04/2023) Immunizations Name Administration Dates Next Due COVID-19 mRNA, LNP-s, No Pre serve, 2-Dose Series (Pfizer) 08/12/2021,12/08/2020,11/12/2020 Hepatitis B, 20+ yrs 09/20/2014,02/09/20 14,01/26/2014(Defer red: Patient Refused) Pneumococcal Conjugate Vacci ne, 20-valent ([id number]) 05/13/2022 Pneumococcal Polysaccharide PPV23 (Pneumovax) 05/18/2012 Seasonal [...] Sign Reading Time Taken Comments Blood Pressure 116/64 04/25/2023 12:38 PM EDT Pulse 84 04/25/2023 12:38 PM EDT Temperature 36.4 C (97.6 F) 04/25/2023 12:38 PM E DT Respiratory Rate 18 04/25/2023 12:38 PM EDT Oxygen Saturation 96% 04/25/2023 12:38 PM EDT Inhaled Oxygen Concentration - - Weight 80.9 kg (178 lb 6.4 oz) 04/25/2023 12:38 PM EDT Height - - Body Mass Index 31.11 05/13/2022 9:41 AM EDT documented in this encounter Patient Instructions * Patient Instructions* Rosemarie Gar LPN - 04/25/2023 12:43 PM EDT Diabetes: Keeping Feet Healthy Inspect your feet every day for signs of a problem. Diabetes can damage nerves in your feet and cause neuropathy. This condition makes it hard for you to feel injuries or sore spots. Diabetes can also change blood flow, making it harder for small problems, like a blister, to heal properly. In fact, minor injuries can quickly become serious infections that send you to the hospital. Practice self-care to protect your feet and keep them healthy. Take Special Care Inspect your feet daily for problems such as redness, blisters, cracks, dry skin, or numbness. Use a mirror to see the bottoms of your feet. Or, ask for help. Manage your diabetes. Monitor and control your blood sugar. Take all your medications as prescribed. Avoid walking barefoot, even indoors. Wash your feet with warm water and mild soap. Dry well, especially between toes. Dont treat corns or calluses yourself. Talk to your doctor or territory supervisor (a doctor who specializes in foot care) if you need assistance trimming your toenails. Use moisturizing cream or lotion if you have dry skin, but dont use it between toes. Dont use heating pads on your feet. If you have neuropathy, you could get a burn and not feel it. Stop smoking. Smoking restricts blood flow and can make it harder for wounds to heal. Have Regular Checkups Foot problems can develop quickly. So be sure to follow your healthcare teams schedule for regular checkups. During office visits, take off your shoes and socks as soon as you get in the exam room. Ask your healthcare provider to examine your feet for problems. This will make it easier to find and treat small skin irritations before they get worse. Regular checkups can also help keep track of the blood flow and feeling in your feet. If you have neuropathy, you may need to have checkups more often. Wear Proper Footwear Wearing proper footwear is very important. If areas of your feet have been damaged by too much pressure, your healthcare provider may recommend changing your footwear. In some cases, avoiding high heels or tight work boots may be all thats needed. Or, your healthcare provider may recommend special shoes or custom inserts. These help protect your feet and keep existing irritations from getting worse. If you need special footwear, ask your healthcare provider if you qualify for [employer] diabetic shoe program. Make Sure Shoes and Socks Fit Any pair of shoes--new or old--should feel comfortable as soon as you put them on. There shouldnt be any rubbing when you walk. Wear the right shoe for any activity. For instance, a running shoe is designed to keep your feet injury-free while jogging. Buy shoes at the end of the day, when your feet are larger. Make sure they provide support without feeling too loose. Make sure your socks fit, t oo. Wear soft, seamless, well-padded socks for activity. Cotton or microfiber socks are best to help to absorb sweat. To protect your feet, avoid shoes that are open-toed or open-heeled. If you have questions about what kinds of shoes and socks are best, talk to your healthcare team. Get Regular Exercise Regular exercise improves blood flow in your feet. It also increases foot strength and flexibility.Gentle exercises, like walking or riding a stationary bicycle, are best. You can also do special foot exercises. Just be sure to talk with your healthcare provider before starting any exercise program. Also mention if any exercise causes pain, redness, or other signs of foot problems. Note: If you have any kind of break in the skin of your foot or ankle, keep the area clean. Then call your doctor--especially if the area doesnt appear to be healing. [phone] [employer], [address] [place] [address]. All rights reserved. This information is not intended as a substitute for professional medical care. Always follow your healthcare professional's instructions. documented in this encounter Progress Notes * Haley Alan, - 04/25/2023 1:08 PM EDT Subjective: Jennifer Rivas is a 63 year old female. Chief Complaint Patient presents with Re-Check HPI: Patient's past medical, surgical, family, and social history were reviewed. Medications, allergies, immunizations, and health care maintenance screenings were also reviewed. Hospital records, labs, studies, and discharge instructions reviewed with patient Admitted [facility] w/ pyelonephritis 03/08-/2-23 Now feeling much better, finished all antibiotics, no return of symptoms. Diabetes Follow Up The patient is taking medications as instructed. No medication side effects are described. Compliance with Diet: poor Compliance with exercise program: poor The patient is not monitoring home blood pressures. The patient denies any acute focal neurologic symptoms. The patient reports no chest pain, no orthopnea, and no dyspnea on exertion. The patient denies intermittent claudication symptoms. Fasting home blood sugar readings: The patient is not recording home blood sugars. Hypoglycemic symptoms: absent Visual changes: none Peripheral Neuropathy: + Patient is aware of possibility of myocardial infarction without any symptoms, and poor glycemic control will lead to poorer prognosis. 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 Tobacco use disorder F17.200 OBESITY, UNSPECIFIED E66.9 DYSFUNCT EUSTACHIAN TUBE H69.80 CHRONIC TOBACCO MUCOSITIS J31.0 Displacement of lumbar intervertebral disc without myelopathy M51.26 Obesity, Class I, BMI 30.0-34.9 (see actual BMI) E66.9 Allergic rhinitis J30.9 Cervical radiculopathy M54.12 Restless leg syndrome G25.81 Cervicalgia M54.2 Type 2 diabetes mellitus with hemoglobin A1c goal of less than or equal to 9.0% (HCC) E11.9 Headache R51.9 Encounter for long-term (current) use of medications Z79.899 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 Pulse Oximeter For Finger Use as directed. 1 Each 0 BD Pen Needle Bre 2nd Gen 32G X 4 MM (Insulin Pen Needle) USE 4 TIMES DAILY FOR INSULIN INJECTION 400 Each 3 Omeprazole 40 MG Oral Capsule Delayed Release (PriLOSEC) TAKE 1 CAPSULE BY MOUTH IN THE MORNING ANDBEFORE BEDTIME 180 Capsule 1 Atorvastatin Calcium 40 MG Oral Tablet (Lipitor) TAKE 1 TABLET BY MOUTH EVERY DAY 90 Tablet 3 Insulin Glargine Solostar 100 UNIT/ML Subcutaneous Solution Pen-injector (Lantus SoloStar) Inject 44 Units under the skin in the morning. 45 mL 3 Insulin Lispro (1 Unit Dial) 100 UNIT/ML Subcutaneous Solution Pen-injector (HumaLOG KwikPen) INJECT 11 UNITS SUBQ WITH BREAKFAST, 11UNITS WITH LUNCH, 14 UNITS WITH DINNER, PLUS CORRECTION CHART (MAX50 UNITS DAILY) 45 mL 3 Loperamide HCl 2 MG Oral Capsule (Imodium) TAKE 1 CAPSULE BY MOUTH TWICE A DAY NEEDED 60 Capsule3 Ventolin HFA 108 (90 Base) MCG/ACT Inhalation Aerosol Solution INHALE 2 PUFFS BY MOUTH EVERY 4 HOURS NEEDED FOR COUGH. 36 g 1 FreeStyle Boy 2 Sensor Use as directed. Use as directed every 14 days 2 Each 11 ASPIRIN 81 MG PO TABS Take 81 mg by mouth at bedtime. Diapers & Supplies Use as needed for incontinence 90 Each 3 No facility-administered medications prior to visit. Last reviewed on 04/25/2023 12:38 PM by Rosemarie Gar LPN Review of patient's allergies indicates: Allergen Reactions Shellfish-Derived Products Edema airway Jardiance [Empagliflozin] Diarrhea and Other (Please comment) Uncontrollable dizziness Objective: BP 116/64 | Pulse 84 | Temp 36.4 C (97.6 F) (Tympanic) | Resp 18 | Wt 80.9 kg (178 lb 6.4 oz) |SpO2 96% | BMI 31.11 kg/m | BSA 1.9 m Physical Exam: General: alert, healthy, and no distress Neck: supple, no adenopathy, no bruits, thyroid normal size, non-tender, without nodularity Heart: regular rate & rhythm, no murmur, and no gallops Lungs: chest symmetric with normal AP diameter, no chest deformities noted, no chest wall tenderness, lungs clear to auscultation Pulses: carotid=2/4 w/o bruits Extremities: less than 2 second capillary refill, no joint deformities, effusion, or inflammation Recent Labs: Lab Results Component Value Date/Time HEMOGLOBIN A1C [...] - [facility] 8.7 (H) 03/27/2021 09:25 AM HEMOGLOBIN-OUTSIDE LAB 16.3 (A) 04/13/2021 12:00 AM Lab Results Component Value Date/Time CREATININE - [...] AM CREATININE-OUTSIDE LAB 0.88 12/24/2014 12:00 AM ASSESSMENT/PLAN: Acute pyelonephritis (Primary) - CT ABD/PELVIS WO IV/ORAL CONTRAST - URINALYSIS, POINT OF CARE (ENTER/EDIT) - CULTURE, URINE, QUANTITATIVE Encounter for screening mammogram for malignant neoplasm of breast - MAMMOGRAM SCREENING BILATERAL; Future; Expected date: 04/25/2023 DM type 2 nursing care encounter (HCC) - DIABETES FOOT EXAM - PODIATRY REFERRAL OP Colicky RLQ abdominal pain - CT ABD/PELVIS WO IV/ORAL CONTRAST Follow Up: Return in about 6 months (around 10/26/2023), or if symptoms worsen or fail to improve, for Clinic Visit, Labs 2-5 Days Before Next Visit. | For: Clinic Visit, Labs 2-5 Days Before Next Visit | Check-out note: podiatry A healthy, low fat, low cholesterol diabetic diet and 30-60 minutes of cardiovascular exercise daily were encouraged. Maintaining a healthy weight/BMI was advised. A total of 1500mg of Calcium and 1000 IU of vitamin D were recommended daily, to be obtained from a combination of both diet and supplement sources. 40 min spent with patient, reviewing history, performing physical exam, reviewing labs, studies, specialist OVNs, and reports, educating and coordinating care, discussing treatment Haley Alan DO * Rosemarie Gar LPN - 04/25/2023 12:42 PM EDT DM Foot Exam completed today. Provider aware. Rosemarie Gar LPN Socks and Shoes Removed for Annual Diabetic Foot Screening RIGHT FOOT: No Reddened, Cracking, Or Open Areas Noted. RIGHT Dorsalis Pedis Pulse: Palpable RIGHT Posterior Tibial Pulse: Palpable RIGHT Monofilament:Patient reports feeling monofilament pressure on plantar surface of foot LEFT FOOT: No Reddened, Cracking or Open Areas Noted. LEFT Dorsalis Pedis Pulse: Palpable LEFT Posterior Tibial Pulse: Palpable LEFT Monofilament:Patient reports feeling monofilament pressure on plantar surface of foot Do you need diabetic shoes: N/A documented in this encounter Nursing Notes * Rosemarie Gar LPN - 04/25/2023 12:37 PM EDT Jennifer Rivas presents for 1 month recheck. Medications & HM reviewed. documented in this encounter Plan of Treatment Upcoming Encounters Date Type Specialty Care Team Description 05/16/2023 Imaging Radiology 05/25/2023 Imaging Radiology 06/10/2023 Office Visit Pulmonary Jesse Blount, DO [address] [facility] [place] [address] 07/06/2023 Office Visit Pharmacy Pharmacist1, [facility] [address] [place] [address] 11/11/2023 Office Visit Family Medicine Haley Alan DO [address] [place] [address] Scheduled Orders Name Type Priority Associated Diagnoses Orde r Schedule MAMMOGRAM SCREENING BILATERAL Medical Imaging Routine Encounter for screening mammogram for malignant neoplasm of breast Expected: 04/25/2023, Expires: 04/25/2024 CT ABD/PELVIS WO IV/ORAL CONTRAST Medical Imaging Routine Acute pyelonephritis Colicky RLQ abdominal pain Ordered: 04/25/2023 Scheduled Referrals Name Type Priority Associated Diagnoses Orde r Schedule PODIATRY REFERRAL OP Referral Within 30 days (routine) DM type 2 nursing care encounter (HCC) Ordered: 04/25/2023 Health Maintenance Due Date Last Done Comments Alpha-1 Antitrypsin 1977 Fecal Occult Blood Test 2004 Sigmoidoscopy 2004 Hepatitis B (3 of 3 - 19+ 3-dose series) 11/15/2014 09/20/2014, 02/08/2014 Depression Screening, Annual for Pts 12 and Over 10/21/2018 10/21/2017 COVID-19 Vaccine (4 - Pfizer series) 10/07/2021 08/12/2021, 12/08/2020, 11/12/2020 DIABETES-EYE EXAM 06/02/2022 06/02/2021, , 12/13/2018, Additional history exists Colonoscopy 07/26/2022 07/26/2012, 0 03/2012, 04/15/2005, Additional history exists Mammogram 11/25/2022 [...] 05/18/2012 LUNG CANCER SCREENING - USE SMARTSET [id number] Completed 12/08/2022, 11/25/2021 GARDASIL-HPV IMMUNIZATION SERIES Aged Out No longer eligible based on patient's age to complete this topic MENINGOCOCCAL (MENACTRA/MENVEO) Aged Out No longer eligible based on patient's age to complete this topic documented as of this encounter Medical Devices Implanted Type Area Solvent Plant Treater Device Identifier Shelf Expiration Date Model / Serial / Lot 7mm Lord Acis Cage Implanted:Qty: 2 on 12/29/[address] [facility] [place] N/A: Spine Cervical JNJ : DEPUY SPINE [id number] / / documented as of this encounter Procedures Procedure Name Priority Date/Time Associated Diagnosis Comments CULTURE, URINE, QUANTITATIVE Routine 04/25/2023 1:58 PM EDT Acute pyelonephritis URINALYSIS, POINT OF CARE (ENTER/EDIT) Routine 04/25/2023 Acute pyelonephritis documented in this encounter Results * CULTURE, URINE, QUANTITATIVE (04/25/2023 1:58 PM EDT) Culture Growth No significant growth 04/26/2023 4:[address] [facility] Urine Urine specimen obtained by clean catch procedure / Unknown Non-blood Collection / Unknown 04/25/2023 1:58 PM EDT 04/25/2023 1:59 PM EDT Authorizing Provider Result Ankit Alan DO LAB MICRO - GEN ERAL ORDERABLES [facility]ORATORY [facility] [address] [place] [address] * URINALYSIS, POINT OF CARE (ENTER/EDIT) (04/25/2023) Color, Urine Yellow Yellow or Light Yellow Clarity, Urine Clear Clear Glucose, Urine 500 Negative mg/dL Bilirubin, Urine Negative Negative Ketone, Urine Negative Negative mg/dL Specific Shelby, Urine 1.010 1.003 - 1.030 Blood, Urine Negative Negative pH, Urine 6.0 5.0 - 7.5 units Protein, Urine Negative Negative mg/dL Urobilinogen, Urine 0.2 0.2 - 1.0 mg/dL Nitrite, Urine Negative Negative Esterase, Urine Negative Negative Urine 04/25/2023 Haley Alan DO LAB POINT OF CA RE TEST ENTER/EDIT ORDERABLES documented in this encounter Visit Diagnoses Diagnosis Acute pyelonephritis- Primary Acute pyelonephritis without lesion of renal medullary necrosis Encounter for screening mammogram for malignant neoplasm of breast Other screening mammogram DM type 2 nursing care encounter (HCC) Type II or unspecified type diabetes mellitus without mention of complication, not stated as uncontrolled Colicky RLQ abdominal pain Abdominal pain, right lower quadrant documented in this encounter Advance Directives Latest [...] Other - (no specific identity) Health Care Banquet Waiter/Waitress (appointed verbally by patient or by statute hierarchy) Care Teams User Experience Manager Relationship Specialty Start Date End Date Haley Alan DO [address] [place] [address] PCP - General Family Medicine 03/04/17 documented as of this encounter"
--- OUTSIDE RECORDS SUMMARY | 2023-08-06 04:04 | External Medical Summary | Summary of Care ---
Author Name Unknown Organization [facility] Address [address] [place] [address] Phone [phone] Care Team Providers Care Repair Technician Name Role Phone Dayanna Haley Deally Primary Care Provider Reason for Visit * Reason Onset Date Comments case management 04/01/2023 Encounter Details Date Type Department Care Team Description 04/01/2023 Plugman Telephone General Internal Medicine [facility] Serene [place] [address] [place], [place] [id number] Helga Jenkins, RN [address] [place] [address] case management Allergies Active Allergy [...] mRNA, LNP-s, No Pre serve, 2-Dose Series (Fastacash) 08/12/2021,12/08/2020,11/12/2020 Hepatitis B, 20+ yrs 09/20/2014,02/09/20 14,01/26/2014(Defer red: Patient Refused) Pneumococcal Conjugate Vacci ne, 20-valent ([id number]) 05/13/2022 Pneumococcal Polysaccharide PPV23 (Pneumovax) 05/18/2012 Seasonal [...] * Telephone Encounter - GALLO Lopez - 04/01/2023 1:03 PM EDT Provider to address:Patient would like to have a cologuard done instead of colonoscopy Reason for Call: case management Contact: [facility] Contact Type: Orders Outcome: Patient requesting to have a colorguard ordered instead of the colonoscopy that she was ordered. Pended for approval. Total Time including non face to face (minutes): 5 * Telephone Encounter - Helga Jenkins RN - 04/01/2023 12:28 PM EDT Patient is asking to cancel her colonoscopy and instead would like to complete Cologuard testing. Nursing staff-please assist if appropriate. Dr. Alan - are you agreeable to above? Please advise. Thank you. Helga Jenkins, pipe layer Care Coordination and Integration [address] [place] [address] documented in this encounter Plan of Treatment Upcoming Encounters Date Type Specialty Care Team Description 04/25/2023 Office Visit Family Medicine Haley Alan, DO [address] [place] [address] 05/03/2023 Office Visit Pharmacy Pharmacist1, [facility] [address] [place] [address] 05/05/2023 Procedure Only Endoscopy Mary Levi MD [address] [place] [address] 06/03/2023 Office Visit Family Haley Cruz, DO [address] [place] [address] 06/10/2023 Office Visit Pulmonary Jesse Blount, DO [address] [place] [address] Scheduled Orders Name Type Priority Associated Diagnoses Orde r Schedule COLOGUARD Lab Unrestricted Lab Screen for colon cancer Ordered: 04/01/2023 Health Maintenance Due Date Last Done Comments [...] 05/18/2012 LUNG CANCER SCREENING - USE SMARTSET [id number] Completed 12/08/2022, 11/25/2021 GARDASIL-HPV IMMUNIZATION SERIES Aged Out No longer eligible based on patient's age to complete this topic MENINGOCOCCAL (MENACTRA/MENVEO) Aged Out No longer eligible based on patient's age to complete this topic documented as of this encounter Medical Devices Implanted Type Area Principal Trainer Device Identifier Shelf Expiration Date Model / Serial / Lot 7mm [employer] Cage Implanted:Qty: 2 on 12/29/2012 at [place] [facility] [place] N/A: Spine Cervical JNJ : DEPUY SPINE [id number] / / documented as of this encounter Visit Diagnoses Diagnosis Screen for colon cancer- Primary Special screening for malignant neoplasms, colon documented in this encounter Advance Directives Latest [...] Other - (no specific identity) [facility] [employer] Former (appointed verbally by patient or by statute hierarchy) Care Teams Repair Technician Relationship Specialty Start Date End Date Haley Alan DO [address] [place] [address] PCP - General Family Medicine 03/04/17 documented as of this encounter
--- OUTSIDE RECORDS SUMMARY | 2023-08-06 04:04 | External Medical Summary | Summary of Care ---
Author Name Unknown Organization [facility] Address [address] [place] [address] Phone [phone] Care Team Providers Care Medical Doctor Name Role Phone Dayanna Haley Miller DO Primary Care Provider Reason for Visit * Reason Onset Date Comments FYI 04/15/2023 Encounter Details Date Type Department Care Team Description 04/15/2023 Time Buyer Telephone Family Practice [facility] [address] [facility] [place] [address] Neeru Venegas, KRISTAL Allergies Active Allergy Reactions Severity Noted Date Comments Empagliflozin Diarrhea,Other (Please comment) 12/04/2020 Uncontrollable dizziness Shellfish-Derived Products Edema airway High 05/05/2020 documented as of this encounter (statuses as of 04/28/2023) Medications Medication Sig Dispensed Refills Start Date [...] as of this encounter (statuses as of 04/28/2023) Active Problems Problem Noted Date TERMINATED MEDICATION [...] as of this encounter (statuses as of 04/28/2023) Resolved Problems Problem Noted Date Resolved Date [...] as of this encounter (statuses as of 04/28/2023) Immunizations Name Administration Dates Next Due COVID-19 mRNA, LNP-s, No Pre serve, 2-Dose Series (Nostalgia Bingo) 08/12/2021,12/08/2020,11/12/2020 Hepatitis B, 20+ yrs 09/20/2014,02/09/20 14,01/26/2014(Defer red: Patient Refused) Pneumococcal Conjugate Vacci ne, 20-valent ([id number]) 05/13/2022 Pneumococcal Polysaccharide PPV23 (Pneumovax) 05/18/2012 Seasonal [...] encounter Miscellaneous Notes * Telephone Encounter - Neeru Venegas RN - 04/15/2023 9:36 AM EDT SITUATION: CM call for IMANI week 3 follow up BACKGROUND: 03/08-03/12 Sepsis r/t UTI/pyelonephritis ASSESSMENT: Pt states she is still having some pain around her flank area. She is not sure if it iskidney or back pain at this time. She is also still having some urinary frequency. She is worried about still having a kidney infection, as she did not have many symptoms before she ended up in the hospital. She denies any fevers, chills or darkness in her urine. She was ordered for a repeat urine culture but did not get this done as at that time the back pain had subsided. RECOMMENDATION: CM recommended that she come in for repeat urine sample if able. She is watching her grandson today, but states she may be able to come into the lab tomorrow (Tuesday). CM advised that she call in to this CM or PCP office if her symptoms worsen. She is scheduled for hospital d/c follow up with Dr. Alan on 04/25. Neeru Venegas skein yarn dyer [facility] [place] 200 [facility] [address] documented in this encounter Plan of Treatment Upcoming Encounters Date Type Specialty Care Team Description 05/03/2023 Office Visit Pharmacy Pharmacist1, [facility] [address] [facility] [place] [address] 06/03/2023 Office Visit Family Medicine Haley Alan, 200 [facility] [place] [address] 06/10/2023 Office Visit Pulmonary Jesse Blount, DO [address] [place] [address] Health Maintenance Due Date Last Done Comments [...] 05/18/2012 LUNG CANCER SCREENING - USE SMARTSET 30280 Completed 12/08/2022, 11/25/2021 GARDASIL-HPV IMMUNIZATION SERIES Aged Out No longer eligible based on patient's age to complete this topic MENINGOCOCCAL (MENACTRA/MENVEO) Aged Out No longer eligible based on patient's age to complete this topic documented as of this encounter Medical Devices Implanted Type Area Safety Counselor Device Identifier Shelf Expiration Date Model / Serial / Lot 7mm Lord Acis Cage Implanted:Qty: 2 on 12/29/2012 at OR [facility] [place] N/A: Spine Cervical JNJ : DEPUY SPINE [...] Other - (no specific identity) Health Care Appraisal Manager (appointed verbally by patient or by statute hierarchy) Care Teams Medical Doctor Relationship Specialty Start Date End Date Haley Alan, [address] [place] [address] PCP - General Family Medicine 03/04/17 documented as of this encounter
--- OUTSIDE RECORDS SUMMARY | 2023-08-06 04:04 | External Medical Summary | Summary of Care ---
Author Name Unknown Organization [facility] Address [address] [place] [address] Phone [phone] Care Team Providers Care Tying In Machine Operator Name Role Phone Dayanna Haley Miller DO Primary Care Provider Reason for Visit * Reason Comments Diabetes Follow-Up Dosage Adjustment In Person (Anticoag Cl inic) Encounter Details Date Type Department Care Team Description 05/03/2023 Office Visit Pharmacy, [facility] [place] 200 [facility] [place] [address] Pharmacist1, [facility] 200 [facility] [place] [id number] Type 2 diabetes mellitus with hemoglobin A1c goal of less than or equal to 9.0% ([facility])* Allergies Active Allergy Reactions Severity Noted Date Comments Empagliflozin Diarrhea,Other (Please comment) 12/04/2020 Uncontrollable dizziness Shellfish-Derived Products Edema airway High 05/05/2020 documented as of this encounter (statuses as of 05/03/2023) Medications Medication Sig Dispensed Refills Start Date [...] Active Pulse Oximeter For FingerIndications: COPD, moderate ([facility]) Use as directed. 1 Each 0 03/17/2023 Active documented as of this encounter (statuses as of 05/03/2023) Active Problems Problem Noted Date TERMINATED MEDICATION [...] as of this encounter (statuses as of 05/03/2023) Resolved Problems Problem Noted Date Resolved Date [...] as of this encounter (statuses as of 05/03/2023) Immunizations Name Administration Dates Next Due COVID-19 mRNA, LNP-s, No Pre serve, 2-Dose Series (Pfizer) 08/12/2021,12/08/2020,11/12/2020 Hepatitis B, 20+ yrs 09/20/2014,02/09/20 14,01/26/2014(Defer red: Patient Refused) Pneumococcal Conjugate Vacci ne, 20-valent ([id number]) 05/13/2022 Pneumococcal Polysaccharide PPV23 (Pneumovax) 05/18/2012 Seasonal [...] encounter Progress Notes * Hugo Toribio V, [facility] - 05/03/2023 10:23 AM EDT Images from the original note [...] 1:30 over 150at meals only (gave sheet) Lantus 44 units daily in the morning Medication Injection Site: Abdomen Lifestyle: Diet: She has been getting up later (~10-11 AM) which moves all of her meals to later times. History of Treatment Barriers: Lifestyle: None Therapy considerations: None Medication: Jardiance (diarrhea, dizziness), Metformin (diarrhea) Trulicity (severe nausea/diarrhea) Glucose Review/SMBG: Readings obtained from patient device Hypoglycemia: Does your blood sugar go below 70 mg/dL? No Hyperglycemia symptoms present: none Recent Labs Units 03/01/23 0932 11/15/22 0930 05/13/22 1047 HEMOGLOBIN A1C - [facility] % -- 9.2* 10.0* HEMOGLOBIN A1C POCT - [facility] % 8.5* -- -- Recent Labs Units 05/13/22 1047 11/10/21 [...] indicated BP Readings from Last 3 Encounters: 04/25/23 116/64 03/17/23 104/62 11/18/22 124/66 Blood pressure at goal: yes HYPERLIPIDEMIA: Patient is taking moderate or high intensity statin: yes, Atorvastatin 40mg daily HEALTH MAINTENANCE REVIEW: Health Maintenance Due Topic Date Due Alpha-1 Antitrypsin Never done Hepatitis B (3 of 3 - 19+ 3-dose series) 11/15/2014 Depression Screening, Annual for Pts 12 and Over 10/21/2018 COVID-19 Vaccine (4 - Pfizer series) 10/07/2021 DIABETES-EYE EXAM 06/02/2022 Mammogram 11/25/2022 ASSESSMENT & PLAN: ICD-10-CM 1. Type 2 diabetes mellitus with hemoglobin A1c goal of less than or equal to 9.0% (HCC) E11.9 BG Readings - Blood sugars uncontrolled. Her day is starting later and ending later. This has shifted her graph above. She is also eating differently. She will return to her previous daily schedule once school starts and resume eating a better and healthier diet. Medications - Reviewed current regimen, patient is adherent to regimen. Diet, Exercise, Lifestyle - see above . Discussed with patient today. Patient is agreeable to wear boy CGM. Patient aware to contact clinic if any hypoglycemia before next visit. MEDICATION CHANGES: yes, see below; preferred pharmacy: [facility] Diabetic Medications: Humalog 14 units before breakfast, 12 units before lunch, 10 units before dinner + CF 1:30 over 150at meals only (gave sheet) INCREASE: Lantus 48 units daily in the morning HEALTH MAINTENANCE INTERVENTIONS: Labs: Up to Date Immunizations: Up to Date Foot Exam: Up to Date Eye Exam: needs completed Annual Wellness Visit: N/A FOLLOW UP: Return to clinic in 8 weeks 07/06/2023 Hugo Toribio RPh, CDE Clinical Pharmacist - [employer] [facility] 05/03/2023, 10:24 AM documented in this encounter Plan of Treatment Upcoming Encounters Date Type Specialty Care Team Description 05/16/2023 Imaging Radiology 05/25/2023 Imaging Radiology 06/10/2023 Office Visit Pulmonary Jesse Blount, DO [address] [facility] [address] 07/06/2023 Office Visit Pharmacy Pharmacist1, [facility] [address] [place] [address] 11/11/2023 Office Visit Family Medicine Haley Alan, DO [address] [place], [place] [address] Health Maintenance Due Date Last Done Comments [...] 05/18/2012 LUNG CANCER SCREENING - USE SMARTSET 92374 Completed 12/08/2022, 11/25/2021 GARDASIL-HPV IMMUNIZATION SERIES Aged Out No longer eligible based on patient's age to complete this topic MENINGOCOCCAL (MENACTRA/MENVEO) Aged Out No longer eligible based on patient's age to complete this topic documented as of this encounter Medical Devices Implanted Type Area Data Center Architect Device Identifier Shelf Expiration Date Model / Serial / Lot 7mm Lord Acis Cage Implanted:Qty: 2 on 12/29/2012 [place] [facility] [place] Spine Cervical JNJ : DEPUY SPINE [id number] / / documented as of this encounter Visit Diagnoses Diagnosis Type 2 diabetes mellitus with hemoglobin A1c goal of less than or equal to 9.0% ([facility])- Primary documented in this encounter Advance Directives [...] Other - (no specific identity) Health Care Electronics Engineering Technologist (appointed verbally by patient or by statute hierarchy) Care Teams Tying In Machine Operator Relationship Specialty Start Date End Date Haley Alan DO [address] [place] [address] PCP - General Family Medicine 03/04/17 documented as of this encounter
--- OUTSIDE RECORDS SUMMARY | 2023-08-06 04:04 | External Medical Summary | Summary of Care ---
Author Name Unknown Organization [facility] Address [address] [place] [address] Phone [phone] Care Team Providers Care Pen Tender Name Role Phone Dayanna Haley Miller DO Primary Care Provider Reason for Visit * Reason Comments case management Encounter Details Date Type Department Care Team Description 04/26/2023 Wood Heel Back LinerPrinter Slotter Operator Internal Medicine [facility] [place] [address] [place] [address] Helga Jenkins, RN [address] [place] [address] Medical home patient encounter* Allergies Active Allergy Reactions Severity Noted Date Comments Empagliflozin Diarrhea,Other (Please comment) 12/04/2020 Uncontrollable dizziness Shellfish-Derived Products Edema airway High 05/05/2020 documented as of this encounter (statuses as of 04/26/2023) Medications Medication Sig Dispensed Refills Start Date [...] as of this encounter (statuses as of 04/26/2023) Active Problems Problem Noted Date TERMINATED MEDICATION USAGE AGREEMENT Overview: As of 12/22/2022, 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 Food insecurity 05/31/2022 Overview: Per [facility] Protocol S/P cervical spinal fusion [...] as of this encounter (statuses as of 04/26/2023) Resolved Problems Problem Noted Date Resolved Date [...] as of this encounter (statuses as of 04/26/2023) Immunizations Name Administration Dates Next Due COVID-19 mRNA, LNP-s, No Pre serve, 2-Dose Series ([employer]) 08/12/2021,12/08/2020,11/12/2020 Hepatitis B, 20+ yrs 09/20/2014,02/09/20 14,01/26/2014(Defer red: Patient Refused) Pneumococcal Conjugate Vacci ne, 20-valent ([id number]) 05/13/2022 Pneumococcal Polysaccharide PPV23 (Pneumovax) 05/18/2012 Seasonal [...] Progress Notes * Helga Jenkins RN - 04/26/2023 2:56 PM EDT 1. Follow-up Routine 2. Attempted Phone Call First Attempt 3. Call Outcome Left Voicemail/Message 4. Plan To attempt another outreach Spoke with patient briefly and she is requesting a call back on to complete the annualassessment. Will call as requested. documented in this encounter Plan of Treatment Upcoming Encounters Date Type Specialty Care Team Description 05/03/2023 Office Visit Pharmacy Pharmacist1, [facility] [address] [address] 06/03/2023 Office Visit Family Medicine Haley Alan, [address] [place] [address] 06/10/2023 Office Visit Pulmonary Jesse Blount, DO [address] [facility] [place] [address] Health Maintenance Due Date Last Done Comments [...] 05/18/2012 LUNG CANCER SCREENING - USE SMARTSET 78391 Completed 12/08/2022, 11/25/2021 GARDASIL-HPV IMMUNIZATION SERIES Aged Out No longer eligible based on patient's age to complete this topic MENINGOCOCCAL (MENACTRA/MENVEO) Aged Out No longer eligible based on patient's age to complete this topic documented as of this encounter Medical Devices Implanted Type Area Statistics Intern Device Identifier Shelf Expiration Date Model / Serial / Lot 7mm Lord Acis Cage Implanted:Qty: 2 on 12/29/2012 at OR [facility] [place] N/A: Spine Cervical JNJ : [...] Other - (no specific identity) Health Care Bilingual Administrative Assistant (appointed verbally by patient or by statute hierarchy) Care Teams Pen Tender Relationship Specialty Start Date End Date Haley Alan DO [address] [place] [address] PCP - General Family Medicine 03/04/17 documented as of this encounter
--- OUTSIDE RECORDS SUMMARY | 2023-08-06 04:04 | External Medical Summary ---
Author Name Unknown Address Unknown Organization K01:[facility] [place] [address] [place] [id number] Laboratory Report Ordering Provider Test Date Status CYNTHIA HARVEY 04/25/2023 13:58:00 Final Observation Date Value Abnormality Reference (Units) Status Bacteria identified in Unspecified specimen by Culture 04/25/2023 13:58:00 No significant growth Final Test: Culture, Urine, Quanti tative
Specimen Source: Urine, Clean Catch
Specimen Type: Urine
Specimen Date: 04/25/2023 1:58 PM
Result Date: 04/26/2023 4:16 PM
Result Status: Final result
Resulting Lab: [facility]
[address]
[facility] [address]

CULTURE

No significant growth

null Performing Location [facility] - [address] [facility] [id number]
--- OUTSIDE RECORDS SUMMARY | 2023-08-06 04:05 | External Medical Summary | Summary of Care ---
Author Name Unknown Organization [facility] Address [address] [place] [address] Phone [phone] Care Team Providers Care Sky Cap Name Role Phone Dayanna De Leon Angela Primary Care Provider Reason for Visit * Reason Comments case management Encounter Details Date Type Department Care Team Description 03/14/2023 Opthalmic TechNewspaper Copy Editor Internal Medicine [facility] [place] 200 [facility] [place] [address] Helga Jenkins RN Medical home patient encounter* Allergies Active Allergy Reactions Severity Noted Date Comments Empagliflozin Diarrhea,Other (Please comment) 12/04/2020 Uncontrollable dizziness Shellfish-Derived Products Edema airway High 05/05/2020 documented as of this encounter (statuses as of 03/14/2023) Medications Medication Sig Dispensed Refills Start Date End Date Status ASPIRIN 81 MG PO TABS Take 81 mg by mouth at bedtime. 0 Active ibuprofen (MOTRIN) 200 MG Tablet Take 200 mg by mouth as needed. 0 Active FreeStyle Boy 2 Sensor Use [...] INSULIN INJECTION 400 Each 3 02/25/2023 Active documented as of this encounter (statuses as of 03/14/2023) Active Problems Problem Noted Date TERMINATED MEDICATION [...] as of this encounter (statuses as of 03/14/2023) Resolved Problems Problem Noted Date Resolved Date [...] as of this encounter (statuses as of 03/14/2023) Immunizations Name Administration Dates Next Due COVID-19 mRNA, LNP-s, No Pre serve, 2-Dose Series ([employer]) 08/12/2021,12/08/2020,11/12/2020 Hepatitis B, 20+ yrs 09/20/2014,02/09/20 14,01/26/2014(Defer red: Patient Refused) Pneumococcal Conjugate Vacci ne, 20-valent ([id number]) 05/13/2022 Pneumococcal Polysaccharide PPV23 (Pneumovax) 05/18/2012 Seasonal [...] Types Packs/Day Years Used Date Smoking Tobacco: Every Day Cigarettes 0.5 40 Smokeless Tobacco: Never Alcohol Use Standard Drinks/Week Comments No 0 (1 standard drink = 0.6 oz pur e alcohol) Sex Assigned at Date Recorded Not on file Job Start Date Occupation Industry Not on file Not on file Not on file documented as of this encounter Progress Notes * Helga Jenkins RN - 03/14/2023 1:50 PM EDT 1. Follow-up Post Discharge 2. Attempted Phone Call First Attempt 3. Call Outcome Left Voicemail/Message 4. Plan To attempt another outreach documented in this encounter Plan of Treatment Upcoming Encounters Date Type Specialty Care Team Description 03/17/2023 Office Visit Family Medicine Makayla Khalil PA-C 200 [facility] [place] [address] 05/03/2023 Office Visit Pharmacy Pharmacist, [facility] 200 [facility] [place] [address] 05/05/2023 Procedure Only Endoscopy Mary Levi MD [address] [facility] [place] [address] 06/03/2023 Office Visit Family Medicine Haley Alan, DO [address] [place] [address] Health Maintenance Due Date Last Done Comments Alpha-1 Antitrypsin 1977 Cologuard 2004 Fecal Occult Blood Test 2004 Sigmoidoscopy 2004 Hepatitis B (3 of 3 - 19+ 3-dose series) 11/15/2014 09/20/2014, 02/08/2014 DISCUSS TOBACCO CESSATION (REFER TO SMARTSET #3291) 08/15/2016 08/15/2015 Depression Screening, Annual for Pts 12 and [...] 05/13/2023 05/13/2022, 10/21, 04/13/2021, Additional history exists O2 ASSESSMENT COMPLETED IN PAST YEAR FOR COPD 07/08/2023 07/08/2022 HbA1c 08/31/2023 03/01/2023, 10/21, 05/13/2022, Additional history exists Albumin/Creatinine Ratio 11/15/2023 023, 07/30/2021, 04/23/2020, Additional history exists DTaP,Tdap,and Td Vaccines (3 - Td or Tdap) 06/03/2026 06/03/2016, 04/22/2006 Lipid Panel 11/15/2027 11/15/2022, 10/21, 04/23/2020, Additional history exists Zoster Vaccines Completed 11/05/2020, 05/06/2020 Pneumococcal Vaccine: Pediatrics (0 to 5 Years) and At-Risk Patients (6 to 64 Years) Completed 05/13/2022, 05/18/2012 Influenza Vaccine (FLU shot) Completed , 06/10/2021, 06/12/2020, Additional history exists LUNG CANCER SCREENING - USE SMARTSET 02466 Completed 12/08/2022, 11/25/2021 GARDASIL-HPV IMMUNIZATION SERIES Aged Out No longer eligible based on patient's age to complete this topic MENINGOCOCCAL (MENACTRA/MENVEO) Aged Out No longer eligible based on patient's age to complete this topic documented as of this encounter Medical Devices Implanted Type Area Director Financial Planning Device Identifier Shelf Expiration Date Model / Serial / Lot 7mm Lord Acis Cage Implanted:Qty: 2 on 12/29/2012 at [place] [facility] [place] N/A: Spine Cervical JNJ : DEPUY SPINE [...] Other - (no specific identity) Health Care Rotary Kiln Operator (appointed verbally by patient or by statute hierarchy) Care Teams Sky Cap Relationship Specialty Start Date End Date Haley Alan DO [address] [place] [address] PCP - General Family Medicine 03/04/17 documented as of this encounter
--- OUTSIDE RECORDS SUMMARY | 2023-08-06 04:05 | External Medical Summary | Summary of Care ---
Author Name Unknown Organization [facility] Address [address] [place] [address] Phone [phone] Care Team Providers Care Apigee Developer Name Role Phone Dayanna De Leon Angela Primary Care Provider Reason for Visit * Reason Comments case management Encounter Details Date Type Department Care Team Description 03/17/2023 Airworthiness Safety InspectorRadio Division Lieutenant Internal Medicine [facility] [place] 200 [facility] [place], [place] [id number] Helga Jenkins RN Medical home patient encounter* Allergies Active Allergy Reactions Severity Noted Date Comments Empagliflozin Diarrhea,Other (Please comment) 12/04/2020 Uncontrollable dizziness Shellfish-Derived Products Edema airway High 05/05/2020 documented as of this encounter (statuses as of 03/17/2023) Medications Medication Sig Dispensed Refills Start Date [...] as of this encounter (statuses as of 03/17/2023) Active Problems Problem Noted Date TERMINATED MEDICATION [...] as of this encounter (statuses as of 03/17/2023) Resolved Problems Problem Noted Date Resolved Date [...] as of this encounter (statuses as of 03/17/2023) Immunizations Name Administration Dates Next Due COVID-19 mRNA, LNP-s, No Pre serve, 2-Dose Series (T[employer]) 08/12/2021,12/08/2020,11/12/2020 Hepatitis B, 20+ yrs 09/20/2014,02/09/20 14,01/26/2014(Defer red: Patient Refused) Pneumococcal Conjugate Vacci ne, 20-valent ([id number]) 05/13/2022 Pneumococcal Polysaccharide PPV23 (Pneumovax) 05/18/2012 Seasonal [...] Progress Notes * Helga Jenkins RN - 03/17/2023 2:24 PM EDT Spoke with patient briefly on the phone - currently in the grocery store. Requested a call back tomorrow to complete assessment. Will call back tomorrow at 1pm as requested. documented in this encounter Plan of Treatment Upcoming Encounters Date Type Specialty Care Team Description 04/25/2023 Office Visit Family Medicine Haley Alan DO [address] [place] [address] 05/03/2023 Office Visit Pharmacy Pharmacist, [facility] [address] [place] [address] 05/05/2023 Procedure Only Endoscopy Mary Levi MD [address] [place] [address] 06/03/2023 Office Visit Family Medicine Haley Alan, DO [address] [place] [address] 06/10/2023 Office Visit Pulmonary Jesse Blount, DO [address] [facility] [place] [address] Health Maintenance Due Date Last Done Comments [...] COMPLETED IN PAST YEAR FOR COPD 07/08/2023 03/17/2023 HbA1c 08/31/2023 03/01/2023, 10/21, 05/13/2022, Additional history [...] exists LUNG CANCER SCREENING - USE SMARTSET 84801 Completed 12/08/2022, 11/25/2021 GARDASIL-HPV IMMUNIZATION SERIES Aged Out No longer eligible based on patient's age to complete this topic MENINGOCOCCAL (MENACTRA/MENVEO) Aged Out No longer eligible based on patient's age to complete this topic documented as of this encounter Medical Devices Implanted Type Area Shipping Receiving Manager Device Identifier Shelf Expiration Date Model / Serial / Lot 7mm Lord Acis Cage Implanted:Qty: 2 on 12/29/2012 [place] [facility] [place] N/A: Spine Cervical JNJ : DEPUY SPINE [...] Other - (no specific identity) Health Care Activity Manager (appointed verbally by patient or by statute hierarchy) Care Teams Apigee Developer Relationship Specialty Start Date End Date Haley Alan DO [address] [place] [address] PCP - General Family Medicine 03/04/17 documented as of this encounter
--- OUTSIDE RECORDS SUMMARY | 2023-08-06 04:05 | External Medical Summary | Summary of Care ---
Author Name Unknown Organization [facility] Address [address] [place] [address] Phone [phone] Care Team Providers Care Clean Up Helper Banquet Name Role Phone Haley Alan Angela Primary Care Provider Reason for Visit * Reason Onset Date Comments case management 03/18/2023 Encounter Details Date Type Department Care Team Description 03/18/2023 Brine Mixer Operator Telephone General Internal Medicine [facility] [address] [place] [address] Helga Jenkins RNautomotive service management teacher Allergies Active Allergy Reactions Severity Noted Date Comments Empagliflozin Diarrhea,Other (Please comment) 12/04/2020 Uncontrollable dizziness Shellfish-Derived Products Edema airway High 05/05/2020 documented as of this encounter (statuses as of 03/18/2023) Medications Medication Sig Dispensed Refills Start Date [...] as directed. 1 Each 0 03/17/2023 Active Fluconazole 150 MG Oral Tablet (Diflucan) Take 1 Tablet by mouth once for 1 dose. 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 Food insecurity 05/31/2022 Overview: Per [facility] Protocol S/P cervical spinal fusion [...] as of this encounter (statuses as of 03/18/2023) Resolved Problems Problem Noted Date Resolved Date [...] as of this encounter (statuses as of 03/18/2023) Immunizations Name Administration Dates Next Due COVID-19 mRNA, LNP-s, No Pre serve, 2-Dose Series ([employer]) 08/12/2021,12/08/2020,11/12/2020 Hepatitis B, 20+ yrs 09/20/2014,02/09/20 14,01/26/2014(Defer red: Patient Refused) Pneumococcal Conjugate Vacci ne, 20-valent ([id number]) 05/13/2022 Pneumococcal Polysaccharide PPV23 (Pneumovax) 05/18/2012 Seasonal [...] encounter Miscellaneous Notes * Telephone Encounter - Helga Jenkins RN - 03/18/2023 4:38 PM EDT Attempted to reach patient by phone. No answer/vm full. Will send Atonometricst message. * Telephone Encounter - Michael Last DO - 03/18/2023 4:34 PM EDT Fluconazole sent. Recommend mucinex for cough, flonase if sinuses bad * Telephone Encounter - Helga Jenkins RN - 03/18/2023 12:42 PM EDT SITUATION: Headache, backache, increased cough w/ clear sputum Yeast infection sxs BACKGROUND: Hx COPD [facility] 03/08-03/12 Sepsis r/t UTI ASSESSMENT: Reporting she had a "bad night"-coughing spells producing clear sputum. No fever. No sob. Was outside frequently yesterday in smokey air. Had removed her oxygen around 4 am because she doesn't sleep well with it on. Does not check her oxygen level-pulse oximeter was ordered yesterday at office visit. Woke this morning with a "bad headache" and her "back and sides are hurting". Was advised she cannot take Ibuprofen/NSAIDS and states Tylenol "tears up" her stomach. Asking what OTC pain medicationshe can use. Also reports symptoms of a yeast infection-white discharge and puritis today. Requesting Diflucan be sent to her pharmacy. Rx pended for provider review. RECOMMENDATION: Advised would discuss with PCP and notify pt of recommendations. Dr. Alan - Please review and advise. Diflucan pended for review-please sign if agreeable. Thank you. Helga Jenkins RN General Internal Medicine [facility] [place] [address] [facility] [place] [address] documented in this encounter Plan of Treatment Upcoming Encounters Date Type Specialty Care Team Description 04/25/2023 Office Visit Family Medicine Haley Alan DO [address] [facility] [place] [address] 05/03/2023 Office Visit Pharmacy Pharmacist1, [facility] [address] [facility] [place] [address] 05/05/2023 Procedure Only Endoscopy Mary Levi MD [address] [place] [address] 06/03/2023 Office Visit Family Medicine Haley Alan, [address] [place] [address] 06/10/2023 Office Visit Pulmonary Jesse Blount, DO [address] [facility] [address] Health Maintenance Due Date Last Done Comments [...] 05/13/2023 05/13/2022, 10/21, 04/13/2021, Additional history exists HbA1c 08/31/2023 03/01/2023, 10/21, [...] exists LUNG CANCER SCREENING - USE SMARTSET 07381 Completed 12/08/2022, 11/25/2021 GARDASIL-HPV IMMUNIZATION SERIES Aged Out No longer eligible based on patient's age to complete this topic MENINGOCOCCAL (MENACTRA/MENVEO) Aged Out No longer eligible based on patient's age to complete this topic documented as of this encounter Medical Devices Implanted Type Area Forge Helper Device Identifier Shelf Expiration Date Model / Serial / Lot 7mm Lord Acis Cage [place]ed:[place] 2 [place] [facility] [place] Spine Cervical JNJ : DEPUY SPINE [...] Other - (no specific identity) Health Care Director Social Service (appointed verbally by patient or by statute hierarchy) Care Teams Clean Up Helper Banquet Relationship Specialty Start Date End Date Haley Alan DO [address] [place] [address] PCP - General Family Medicine 03/04/17 documented as of this encounter
--- OUTSIDE RECORDS SUMMARY | 2023-08-06 04:05 | External Medical Summary | Summary of Care ---
Author Name Unknown Organization [facility] Address [address] [place] [address] Phone [phone] Care Team Providers Care Supervisor Customer Records Division Name Role Phone Dayanna De Leon Angela Primary Care Provider Reason for Visit * Reason Comments case management Encounter Details Date Type Department Care Team Description 03/16/2023 Game TesterDirector Of Cardiac Rehabilitation Internal Medicine [facility] [place] [address] [facility] [place] [address] Helga Jenkins RN Medical home patient encounter* Allergies Active Allergy Reactions Severity Noted Date Comments Empagliflozin Diarrhea,Other (Please comment) 12/04/2020 Uncontrollable dizziness Shellfish-Derived Products Edema airway High 05/05/2020 documented as of this encounter (statuses as of 03/16/2023) Medications Medication Sig Dispensed Refills Start Date [...] as of this encounter (statuses as of 03/16/2023) Active Problems Problem Noted Date TERMINATED MEDICATION [...] as of this encounter (statuses as of 03/16/2023) Resolved Problems Problem Noted Date Resolved Date [...] as of this encounter (statuses as of 03/16/2023) Immunizations Name Administration Dates Next Due COVID-19 mRNA, LNP-s, No Pre serve, 2-Dose Series ([employer]) 08/12/2021,12/08/2020,11/12/2020 Hepatitis B, 20+ yrs 09/20/2014,02/09/20 14,01/26/2014(Defer red: Patient Refused) Pneumococcal Conjugate Vacci ne, 20-valent ([id number]) 05/13/2022 Pneumococcal Polysaccharide PPV23 (Pneumovax) 05/18/2012 Seasonal [...] Progress Notes * Helga Jenkins RN - 03/16/2023 12:54 PM EDT 1. Follow-up Post Discharge 2. Attempted Phone Call Second Attempt 3. Call Outcome Unable to Leave Message 4. Plan To attempt another outreach documented in this encounter Plan of Treatment Upcoming Encounters Date Type Specialty Care Team Description 03/17/2023 Office Visit Family Medicine Makayla Khalil PAZachC 200 [place] [address] 05/03/2023 Office Visit Pharmacy Pharmacist, [facility] [address] [facility] [place] [address] 05/05/2023 Procedure Only Endoscopy Mary Levi MD [address] [place] [address] 06/03/2023 Office Visit Family Medicine Haley Alan, DO [address] [place], [place] [id number] Health Maintenance Due Date Last Done Comments [...] exists LUNG CANCER SCREENING - USE SMARTSET 12941 Completed 12/08/2022, 11/25/2021 GARDASIL-HPV IMMUNIZATION SERIES Aged Out No longer eligible based on patient's age to complete this topic MENINGOCOCCAL (MENACTRA/MENVEO) Aged Out No longer eligible based on patient's age to complete this topic documented as of this encounter Medical Devices Implanted Type Area Pharmacist Critical Care Device Identifier Shelf Expiration Date Model / Serial / Lot 7mm Lord [employer]is Cage Implanted:Qty: 2 on 12/29/2012 [place] [facility] [place]A: Spine Cervical JNJ : DEPUY SPINE [...] Other - (no specific identity) Health Care Auto Mechanic Supervisor (appointed verbally by patient or by statute hierarchy) Care Teams Supervisor Customer Records Division Relationship Specialty Start Date End Date Haley Alan DO [address] [place] [address] PCP - General Family Medicine 03/04/17 documented as of this encounter
--- OUTSIDE RECORDS SUMMARY | 2023-08-06 04:05 | External Medical Summary | Summary of Care ---
Author Name Unknown Organization [facility] Address [address] [place] [address] Phone [phone] Care Team Providers Care Plater Printed Circuit Board Panels Name Role Phone Haley Alan DO Primary Care Provider Reason for Referral * Evaluate & Treat - Unlimited Visits (Within 3 days (urgent)) - Authorized Specialty Diagnoses / Procedures Referred By Stephanie urias Referred To Contact Manager Digital Diagnoses Sepsis due to urinary tract infection (HCC) Haley Alan DO [address] [place] [address] Referral ID Status Reason Start Date Expiration Date Visits Requested Visits Authorized [id number] Authorized Specialty Services Required 03/18/2023 1 1 Question Answer Referral Priority Within 3 days (urgent) Program Type Case Management Complex Case Management [facility] [place] [facility] Device(s) Requested Other (See Comment) - post d/c IVR weekly x 4 Alarm Settings Standard per protocol Comments Post-Discharge Start date: 03/23/23 How many weeks: 4 If want time other than 9am, note time here: Reason for Visit * Reason Comments case management Encounter Details Date Type Department Care Team Description 03/18/2023 Manager DigitalMail Handler Assistant Internal Medicine [facility] [place] [address] [place] [address] Helga Jenkins RN Medical home patient encounter*; Sepsis due to urinary tract infection (HCC) Allergies Active Allergy Reactions Severity Noted Date [...] mRNA, LNP-s, No Pre serve, 2-Dose Series ([employer]) 08/12/2021,12/08/2020,11/12/2020 Hepatitis B, 20+ yrs 09/20/2014,02/09/20 14,01/26/2014(Defer red: Patient Refused) Pneumococcal Conjugate Vacci ne, 20-valent ([id number]) 05/13/2022 Pneumococcal Polysaccharide PPV23 (Pneumovax) 05/18/2012 Seasonal [...] Progress Notes * Helga Jenkins RN - 03/18/2023 11:16 AM EDT Manager Digital Progress Note: Date: 03/18/23 Assgned Patient Tier: 3 Connected with patient via telephone. Verified patient name/. Advised patient that call is beingrecorded for quality and training purposes. Assessment: Pt. noted the following: Spoke with patient in follow up to recent hospitalization for Sepsis r/t UTI. Reports she is "not feeling good today"-"back and sides are hurting", has a headache and "coughed alot last night". Reports she did expel clear sputum last night when coughing. Had been outside yesterday in the smoke and thinks this irritated her lungs. Denies any worsening shortness of breath. Wearing her oxygen 2 lpm continuous but does remove during sleep occasionally-removed around 4 am thismorning. Has not used her inhalers. Reports she has not smoked since she was admitted to hospital-currently wearing nicotine patch. Shewas seen by PCP office yesterday for hospital follow up. Urinary symptoms have resolved. States that she has hx of chronic diarrhea and wears adult pull-upsfor possible leakage-had an "accident" prior to developing UTI and feels this may have caused the infection. States she drinks 2 bottles of flavored water daily. Today she feels like she has a recurring yeast infection due to recent antibiotic use. States she is having white discharge and itching. Requesting rx for diflucan to be sent to [facility]. Also questioningwhat she can use OTC to treat her headache since she is not supposed to use Ibuprofen/NSAIDS and Tyenol "tears up" her stomach. Message sent to PCP for review/recommendations. Referral for Pulmonology placed and order for pulse oximeter sent to pharmacy yesterday-has not heard if insurance will cover. Offered to enroll with Current Health monitor but declined. Currently using [employer] monitor for daily blood sugar readings-has not checked yet today. Last visit with [facility] pharmacy 03/01-reported adherent to regimen. HgA1C was 8.5. Red flags-urinary symptoms, shortness of breath/coughing, fever. Advised to report any worsening symptoms to PCP. Will plan to follow up in one week. Did you receive an alert for an annual wellness visit? No Is this call for a hospital, intermediate or rehab facility discharge to home? Yes [facility] 03/08-03/12 Sepsis r/t UTI/pyelonephritis Medication Reconciliation: Medication Reconciliation completed: yes Review of Current goals: Discussed the following patient-centered CM goals with the patient during this discussion: -: Patient will recognize signs of UTI and promote healthy lifestyle changes to prevent UTIs. -Status: At Risk Recent hospitalization for sepsis r/t UTI. Finished abx. -COPD: Achieve successful management of COPD -Status: On Track Oxygen 2 LPM continuous. Has not smoked since 03/08. -Prevention: Prevent admission/readmission -Status: On Track Completed hospital f/u yesterday. Taking medications as prescribed. COPD Patient: YES Oxygen: 2LPM via N/C, Cough: PRODUCTIVE, COLOR: clear and ONSET last night, Breathing: Breathing at Baseline CHF Patient: NO CM Plan: Reviewed 3 Red Flags with patient. Advised to call CM with any of the following: Red Flag 1: urinary symptoms, Red Flag 2: shortness of breath/worsening cough or Red Flag 3: fever, Manager Digital will follow-up with PCP regarding symptoms . and enrolled in post d/c weekly IVR x 4 Remote Patient Monitoring: At this time, RPM not offered/considered for patient due to declined. Plan for Future Contacts: Plan to follow up within 1 week to check progress on the following goals/needs as above. Planned contacts from the following parties will occur this week: N/A as additional contacts per workflow. Advancement/Closure Plan: Advance patient to following higher tier. Will arrange the following advanced interventions if necessary: Acute appointment. Patient provided CM contact information and encouraged to call with any changes in condition. SNP Member? No PCP Notified of enrollment in CM/HM program: Yes Is Provider in agreement with POC? Yes Helga Jenkins RN Outpatient Case Management documented in this encounter Miscellaneous Notes * Addendum Note - Helga Jenkins RN - 03/18/2023 1:09 PM EDTAddended by: HELGA JENKINS on: 03/18/2023 01:09 PM Modules accepted: Orders documented in this encounter Plan of Treatment Upcoming Encounters Date Type Specialty Care Team Description 04/25/2023 Office Visit Family Medicine Haley Alan, DO [address] [place] [address] 05/03/2023 Office Visit Pharmacy Pharmacist1, [facility] [address] [place] [address] 05/05/2023 Procedure Only Endoscopy Mary Levi MD [address] [place] [address] 06/03/2023 Office Visit Family Medicine Haley Alan, DO [address] [place] [address] 06/10/2023 Office Visit Pulmonary Jesse Blount, DO [address] [place] [address] Scheduled Referrals Name Type Priority Associated Diagnoses Orde r Schedule REMOTE PATIENT MONITORING REFERRAL Referral Within 3 days (urgent) Sepsis due to urinary tract infection (HCC) Ordered: 03/18/2023 Health Maintenance Due Date Last Done Comments [...] exists LUNG CANCER SCREENING - USE SMARTSET 71012 Completed 12/08/2022, 11/25/2021 GARDASIL-HPV IMMUNIZATION SERIES Aged Out No longer eligible based on patient's age to complete this topic MENINGOCOCCAL (MENACTRA/MENVEO) Aged Out No longer eligible based on patient's age to complete this topic documented as of this encounter Medical Devices Implanted Type Area Railroad Worker Device Identifier Shelf Expiration Date Model / Serial / Lot 7mm Lord [employer]is Cage Implanted:Q[place]: 2 [place] [facility] [place] Spine Cervical JNJ : DEPUY SPINE [id number] / / documented as of this encounter Visit Diagnoses Diagnosis Medical home patient encounter- Primary Other specified examination Sepsis due to urinary tract infection (HCC) Unspecified septicemia documented in this encounter Advance Directives Latest [...] Other - (no specific identity) Health Care Passenger Flagman (appointed verbally by patient or by statute hierarchy) Care Teams Plater Printed Circuit Board Panels Relationship Specialty Start Date End Date Haley Alan DO [address] [place] [address] PCP - General Family Medicine 03/04/17 documented as of this encounter
--- OUTSIDE RECORDS SUMMARY | 2023-08-06 04:05 | External Medical Summary | Summary of Care ---
Author Name Unknown Organization [facility] Address [address] [place] [address] Phone [phone] Care Team Providers Care Aircraft Maintenance Manager Name Role Phone Dayanna De Leon Angela Primary Care Provider Reason for Visit * Reason Comments case management Encounter Details Date Type Department Care Team Description 03/18/2023 Taxation AccountantPharmacy Billing Adjudicator Internal Medicine [facility] [place] 200 [facility], [place] [phone] Helga Jenkins RN Medical home patient encounter* [...] mRNA, LNP-s, No Pre serve, 2-Dose Series ([employer]) 08/12/2021,12/08/2020,11/12/2020 Hepatitis B, 20+ yrs 09/20/2014,02/09/20 14,01/26/2014(Defer red: Patient Refused) Pneumococcal Conjugate Vacci ne, 20-valent ([id number]) 05/13/2022 Pneumococcal Polysaccharide PPV23 (Pneumovax) 05/18/2012 Seasonal [...] Jenkins RN - 03/18/2023 11:16 AM EDT Taxation Accountant Progress Note: Date: 03/18/23 Assgned Patient Tier: [...] rx for diflucan to be sent to [facility]. Also questioningwhat she can use OTC to treat her headache since she is not supposed to use Ibuprofen/NSAIDS and Tyenol "tears up" her stomach. Message sent to PCP for review/recommendations. Referral for Pulmonology placed and order for pulse oximeter sent to pharmacy yesterday-has not heard if insurance will cover. Offered to enroll with Current Health monitor but declined. Currently using [employer] monitor for daily blood sugar readings-has not checked yet today. Last visit with [facility] pharmacy 03/01-reported adherent to regimen. HgA1C was 8.5. Red flags-urinary symptoms, shortness of breath/coughing, fever. Advised to report any worsening symptoms to PCP. Will plan to follow up in one week. Did you receive an alert for an annual wellness visit? No Is this call for a hospital, fdc or rehab facility discharge to home? Yes [facility] 03/08-03/12 Sepsis r/t UTI/pyelonephritis Medication Reconciliation: Medication [...] breath/worsening cough or Red Flag 3: fever, Taxation Accountant will follow-up with PCP regarding symptoms . [...] Outpatient Case Management documented in this encounter Plan of Treatment Upcoming Encounters Date Type Specialty Care Team Description 04/25/2023 Office Visit Family Medicine Haley Alan, DO [address] [facility] [address] 05/03/2023 Office Visit Pharmacy Pharmacist1, [facility] [address] [facility] [place] [address] 05/05/2023 Procedure Only Endoscopy Mary Levi MD [address] [place] [address] 06/03/2023 Office Visit Family Medicine Haley Alan, [address] [facility] [address] 06/10/2023 Office Visit Pulmonary Jesse Blount, DO [address] [place] [address] Health Maintenance Due Date Last Done Comments [...] exists LUNG CANCER SCREENING - USE SMARTSET [id number] Completed 12/08/2022, 11/25/2021 GARDASIL-HPV IMMUNIZATION SERIES Aged Out No longer eligible based on patient's age to complete this topic MENINGOCOCCAL (MENACTRA/MENVEO) Aged Out No longer eligible based on patient's age to complete this topic documented as of this encounter Medical Devices Implanted Type Area Tanning Wheel Filler Device Identifier Shelf Expiration Date Model / Serial / Lot 7mm Lord [employer]is Cage Implanted:Qty: 2 [place] 12[place]29/[place] [facility] [place] Spine Cervical JNJ : DEPUY SPINE [...] Other - (no specific identity) Health Care Claim Trainee (appointed verbally by patient or by statute hierarchy) Care Teams Aircraft Maintenance Manager Relationship Specialty Start Date End Date Haley Alan DO [address] [place] [address] PCP - General Family Medicine 03/04/17 documented as of this encounter
--- OUTSIDE RECORDS SUMMARY | 2023-08-06 04:05 | External Medical Summary | Summary of Care ---
Author Name Unknown Organization [facility] Address [address] [place] [address] Phone [phone] Care Team Providers Care Mandrel Maker Name Role Phone Haley Alan DO Primary Care Provider Reason for Referral * Evaluate & Treat - Unlimited Visits (Within 30 days (routine)) - Authorized Specialty Diagnoses / Procedures Referred By Contben t Referred To Contact Pulmonary Diseases / Pulmonary Diagnoses COPD, moderate (HCC) Makayla Khalil PA-C [address] [place] [address] Referral ID Status Reason Start Date Expiration Date Visits Requested Visits Authorized [id number] Authorized Specialty Services Required 03/17/2023 999 999 Question Answer Referral Priority Within 30 days (routine) Primary Reason for Referral? Asthma/COPD Reason for Visit * Reason Comments Hospital Follow-Up Encounter Details Date Type Department Care Team Description 03/17/2023 Office Visit Family Practice State Robbie Milner [address] [place] [address] Makayla Khalil PA-C [address] [place] [address] Sepsis due to Escherichia coli with acute hypoxic respiratory failure without septic shock (HCC)*; COPD, moderate (HCC) Allergies Active Allergy Reactions Severity Noted [...] 2 Each 11 06/22/2021 Active Diapers & SuppliesIndicatio ns:Mixed incontinence urge and stress (male)(female) Use as needed for incontinence 90 Each 3 04/20/2022 Active Ventolin HFA 108 (90 Base) MCG/ACT Inhalation Aerosol SolutionIndicatio ns:Bacterial pneumonia INHALE 2 PUFFS BY MOUTH EVERY 4 HOURS NEEDED FOR COUGH. 36 g 1 11/06/2022 Active Loperamide HCl 2 MG Oral Capsule (Imodium)Indicati ons:Chronic diarrhea TAKE 1 CAPSULE BY MOUTH TWICE A DAY NEEDED 60 Capsule 3 11/08/2022 Active Insulin Lispro (1 Unit Dial) 100 UNIT/ML Subcutaneous Solution Pen-injector (HumaLOG KwikPen)Indicatio ns:Type 2 diabetes mellitus with hemoglobin A1c goal of less than or equal to 9.0% (HCC) INJECT 11 UNITS SUBQ WITH BREAKFAST, 11UNITS WITH LUNCH, 14 UNITS WITH DINNER, PLUS CORRECTION CHART (MAX 50 UNITS DAILY) 45 mL 3 11/18/2022 Active Insulin Glargine Solostar 100 UNIT/ML Subcutaneous Solution Pen-injector (Lantus SoloStar)Indicati ons:Type 2 diabetes mellitus with hemoglobin A1c goal of less than or equal to 9.0% (HCC) Inject 44 Units under the skin in the morning. 45 mL 3 11/30/2022 Active Atorvastatin Calcium 40 MG Oral Tablet (Lipitor)Indicati ons:Mixed dyslipidemia TAKE 1 TABLET BY MOUTH EVERY DAY 90 Tablet 3 02/04/2023 Active Omeprazole 40 MG Oral Capsule Delayed Release (PriLOSEC)Indicat ions:Wallace's esophagus with low grade dysplasia TAKE 1 CAPSULE BY MOUTH IN THE MORNING AND BEFORE BEDTIME 180 Capsule 1 02/25/2023 Active BD Pen Needle Bre 2nd Gen 32G X 4 MM (Insulin Pen Needle) USE 4 TIMES DAILY FOR INSULIN INJECTION 400 Each 3 02/25/2023 Active Nicotine 7 MG/24HR Transdermal Patch 24 Hour (Nicoderm CQ) 7 mg. 0 03/12/2023 Active Pulse Oximeter For FingerIndications :COPD, moderate (HCC) Use as directed. 1 Each 0 03/17/2023 Active ibuprofen (MOTRIN) 200 MG Tablet Take 200 mg by mouth as needed. 0 3 Discontinu ed(Medicat ion List Clean Up) documented as of this encounter (statuses as [...] mRNA, LNP-s, No Pre serve, 2-Dose Series (Zenamins) 08/12/2021,12/08/2020,11/12/2020 Hepatitis B, 20+ yrs 09/20/2014,02/09/20 14,01/26/2014(Defer red: Patient Refused) Pneumococcal Conjugate Vacci ne, 20-valent ([id number]) 05/13/2022 Pneumococcal Polysaccharide PPV23 (Pneumovax) 05/18/2012 Seasonal [...] 40 Q uit: 03/07/2023 Smokeless Tobacco: Never Tobacco Cessation:Counseling Given: Not Answered Alcohol Use Standard Drinks/Week Comments No 0 (1 standard drink = 0.6 oz pur e alcohol) Sex Assigned at Date Recorded Not on file Job Start Date Occupation Industry Not on file Not on file Not on file documented as of this encounter Last Filed Vital Signs Vital Sign Reading Time Taken Comments Blood Pressure 104/62 03/17/2023 9:01 AM EDT Pulse 72 03/17/2023 9:01 AM EDT Temperature 37 C (98.6 F) 03/17/2023 9:0 1 AM EDT Respiratory Rate 18 03/17/2023 9:01 AM EDT Oxygen Saturation 97% 03/17/2023 9:0 1 AM EDT 2L O2 via NC Inhaled Oxygen Concentration - - Weight 79.6 kg (175 lb 6.4 oz) 03/17/20 9:01 AM EDT Height - - Body Mass Index 30.58 05/13/2022 9:41 AM EDT documented in this encounter Progress Notes * Makayla Khalil PA-C - 03/17/2023 9:21 AM EDT Images from the original note were not included. History of Present Illness Jennifer Rivas is a 62 year old female that presents for Hospital Follow-Up Patient is a 62 year old female who presents for a follow up on a recent hospitialization of sepsis. Has a uti, pyleoenphtrits, Was admitted on 03/08 and discharged on 03/12. Finished all of her antibiotics feeling better but still weak. Was on bactrim for 5 days after discharge. Using oxygen at 2L Wearing all day. Appetite fair Sleep diminished, oxygen bothers at night. Urination/ bowel movements good Has not smoked since admission. Physical Exam Vitals: 03/17/23 0901 Temp: 37 C (98.6 F) Pulse: 72 Resp: 18 SpO2: 97% BP: 104/62 BP Readings from Last 3 Encounters: 03/17/23 104/62 11/18/22 124/66 07/08/22 124/74 Wt Readings from Last 3 Encounters: 03/17/23 79.6 kg (175 lb 6.4 oz) 11/18/22 82.8 kg (182 lb 9.6 oz) 07/08/22 81.6 kg (180 lb) General: alert, healthy, no distress, well nourished, well developed and cooperative Head: Normocephalic, No masses, lesions, tenderness or abnormalities Eye Exam: PERRLA, extraocular movements intact, conjunctiva are pink and non- injected, sclera clear Oropharynx: no exudate, no erythema, lips, buccal mucosa, and tongue normal and mucous membranes are moist Neck: supple, no adenopathy, no bruits, thyroid normal size, non-tender, without nodularity Heart: regular rate & rhythm, no murmur and no gallops Lungs: chest symmetric with normal AP diameter, no chest deformities noted, normal respiratory rateand rhythm, no chest wall tenderness, diaphragmatic excursion normal, lungs clear to auscultation Extremities: less than 2 second capillary refill, no joint deformities, effusion, or inflammation, no edema, no skin discoloration, no clubbing, no cyanosis I have reviewed the following results: CMP and CBC Assessment and Plan Sepsis due to Escherichia coli with acute hypoxic respiratory failure without septic shock (HCC) (Primary) COPD, moderate (HCC) - Pulse Oximeter For Finger; Use as directed. - PULMONARY REFERRAL OP Follow Up: Return in about 4 weeks (around 04/14/2023) for Clinic Visit/with pcp. | For: Clinic Visit/with pcp | Check-out note: Schedule pulmonary Wrap-Up Time: I spent a total of 30-39 minutes (exact time 39 mins) on the date of service in preparation, delivery, and documentation of the care provided to Jennifer Rivas excluding any time spent in the performance of separately billed services. documented in this encounter Nursing Notes * Rosemarie Gar LPN - 03/17/2023 8:57 AM EDT Jennifer Rivas presents for hospital follow up. Medications & HM reviewed. documented in this encounter Plan of Treatment Upcoming Encounters Date Type Specialty Care Team Description 04/25/2023 Telemedicine Family Medicine Haley Alan, DO [address] [facility] [place] [address] 05/03/2023 Office Visit Pharmacy Pharmacist1, [facility] [address] [place] [address] 05/05/2023 Procedure Only Endoscopy Mary Levi MD [address] [place] [address] 06/03/2023 Office Visit Family Medicine Haley Alan, DO [address] [facility] [address] 06/10/2023 Office Visit Pulmonary Jesse Blount, DO [address] [place] [address] Scheduled Referrals Name Type Priority Associated Diagnoses [...] exists LUNG CANCER SCREENING - USE SMARTSET [id number] Completed 12/08/2022, 11/25/2021 GARDASIL-HPV IMMUNIZATION SERIES Aged Out No longer eligible based on patient's age to complete this topic MENINGOCOCCAL (MENACTRA/MENVEO) Aged Out No longer eligible based on patient's age to complete this topic documented as of this encounter Medical Devices Implanted Type Area Cost Controller Device Identifier Shelf Expiration Date Model / Serial / Lot 7mm Lord Acis Cage Implanted:Qty: 2 on 12/29/2012 at OR [facility] N/A: Spine Cervical JNJ : DEPUY SPINE [id number] / / documented as of this encounter Visit Diagnoses Diagnosis Sepsis due to Escherichia coli with acute hypoxic respiratory failure without septic shock (HCC)- Primary COPD, moderate (HCC) Chronic airway obstruction, not elsewhere classified documented in this encounter Advance Directives Latest [...] Other - (no specific identity) Health Care Rake Operator (appointed verbally by patient or by statute hierarchy) Care Teams Mandrel Maker Relationship Specialty Start Date End Date Haley Alan DO [address] [place] [address] PCP - General Family Medicine 03/04/17 documented as of this encounter"
--- OUTSIDE RECORDS SUMMARY | 2023-08-06 04:05 | External Medical Summary | Summary of Care ---
Author Name Unknown Organization [facility] Address [address] [place] [address] Phone [phone] Care Team Providers Care Aerobics Instructor Name Role Phone Dayanna De Leon Angela Primary Care Provider Reason for Visit * Reason Onset Date Comments case management 03/25/2023 Encounter Details Date Type Department Care Team Description 03/25/2023 Freight Broker Telephone General Internal Medicine [facility] [address] [place] [address] Helga Jenkins RNmanagement and budget analyst Allergies Active Allergy Reactions Severity Noted Date Comments Empagliflozin Diarrhea,Other (Please comment) 12/04/2020 Uncontrollable dizziness Shellfish-Derived Products Edema airway High 05/05/2020 documented as of this encounter (statuses as of 03/25/2023) Medications Medication Sig Dispensed Refills Start Date [...] as of this encounter (statuses as of 03/25/2023) Active Problems Problem Noted Date TERMINATED MEDICATION USAGE AGREEMENT Overview: As of 12/22/2022, 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 Food insecurity 05/31/2022 Overview: Per [facility] Protocol S/P cervical spinal fusion [...] as of this encounter (statuses as of 03/25/2023) Resolved Problems Problem Noted Date Resolved Date [...] as of this encounter (statuses as of 03/25/2023) Immunizations Name Administration Dates Next Due COVID-19 mRNA, LNP-s, No Pre serve, 2-Dose Series (Xirrus) 08/12/2021,12/08/2020,11/12/2020 Hepatitis B, 20+ yrs 09/20/2014,02/09/20 14,01/26/2014(Defer red: Patient Refused) Pneumococcal Conjugate Vacci ne, 20-valent ([id number]) 05/13/2022 Pneumococcal Polysaccharide PPV23 (Pneumovax) 05/18/2012 Seasonal [...] Telephone Encounter - Helga Jenkins RN - 03/25/2023 4:31 PM EDT Called patient and advised. Reports she is feeling better now. Pain has subsided. She will continueto monitor and if she worsens over the weekend she will go to the ER for evaluation. * Telephone Encounter - Haley Alan DO - 03/25/2023 3:46 PM EDT Please call: Urine culture ordered, if feeling worse now off abx, fevers, chills, lethargy, and severe flank/back pain go back to ED. * Telephone Encounter - Helga Jenkins RN - 03/25/2023 10:55 AM EDT SITUATION: [facility] Tier 2 follow up IMANI BACKGROUND: [facility] 03/08-03/12 Sepsis r/t UTI/pyelonephritis ASSESSMENT: Reports she is having worsening lower back pain today and woke up in a sweat-did not check her temperature. Denies any burning/pain with urination, no cloudiness/blood in urine, no increased frequency/urgency. Rating her pain at 6/10. FBS this morning was 198. Recent yeast infection symptoms have resolved. Still coughing up jenkins phlegm w/ black specks in it-hx of long-term smoking. Denies any worsening shortness of breath. Wearing oxygen 2 lpm "off and on"-did advise to use as prescribed. Not currently taking any OTC medications to treat above symptoms. RECOMMENDATION: Advised to continue to monitor for worsening symptoms. Will send message to PCP for further recommendations. Will follow up with patient today and again in one week. Dr. Alan - I did pend an order for a urine test-if agreeable, please sign. Please advise any additional orders/recommendations. Thank you. Helga Jenkins RN General Internal Medicine [facility] [place] [address] [facility] [place] [address] documented in this encounter Plan of Treatment Upcoming Encounters Date Type Specialty Care Team Description 04/25/2023 Office Visit Family Medicine Haley Alan, [address] [facility] [place] [address] 05/03/2023 Office Visit Pharmacy Pharmacist1, [facility] 200 [facility] [place] [address] 05/05/2023 Procedure Only Endoscopy Mary Levi MD [address] [place] [address] 06/03/2023 Office Visit Family Medicine Haley Alan, [address] [place] [address] 06/10/2023 Office Visit Pulmonary [facility]ount, DO [address] [facility] [address] Scheduled Orders Name Type Priority Associated Diagnoses Orde r Schedule URINALYSIS, REFLEX TO CULTURE (NOT FOR NEUTROPENIC PATIENTS) Lab Routine Acute pyelonephritis Expected: 03/25/2023, Expires: 03/25/2024 Health Maintenance Due Date Last Done Comments [...] 05/18/2012 LUNG CANCER SCREENING - USE SMARTSET [id number] Completed 12/08/2022, 11/25/2021 GARDASIL-HPV IMMUNIZATION SERIES Aged Out No longer eligible based on patient's age to complete this topic MENINGOCOCCAL (MENACTRA/MENVEO) Aged Out No longer eligible based on patient's age to complete this topic documented as of this encounter Medical Devices Implanted Type Area Parts Identifier Device Identifier Shelf Expiration Date Model / Serial / Lot 7mm Lord Acis Cage Implanted:Qty: 2 on 12/29/2012 at OR [facility] [place] N/A: Spine Cervical JNJ : DEPUY SPINE [id number] / / documented as of this encounter Visit Diagnoses Diagnosis Acute pyelonephritis- Primary Acute pyelonephritis without lesion of renal medullary necrosis documented in this encounter Advance Directives Latest [...] Other - (no specific identity) Health Care Rock Crusher (appointed verbally by patient or by statute hierarchy) Care Teams Aerobics Instructor Relationship Specialty Start Date End Date Haley Alan DO [address] [place] [address] PCP - General Family Medicine 03/04/17 documented as of this encounter
--- OUTSIDE RECORDS SUMMARY | 2023-08-06 04:05 | External Medical Summary | Summary of Care ---
Author Name Unknown Organization [facility] Address [address] [place] [address] Phone [phone] Care Team Providers Care Tree Planter Name Role Phone Haley Alan DO Primary Care Provider Encounter Details Date Type Department Care Team Description 04/08/2023 Plasterer SpotFood Order Delivery Runner Practice [facility] [address] [facility] [place] [id number] Neeru Venegas, RN Medical home patient encounter* Allergies Active Allergy Reactions Severity Noted Date Comments Empagliflozin Diarrhea,Other (Please comment) 12/04/2020 Uncontrollable dizziness Shellfish-Derived Products Edema airway High 05/05/2020 documented as of this encounter (statuses as of 04/08/2023) Medications Medication Sig Dispensed Refills Start Date [...] as of this encounter (statuses as of 04/08/2023) Active Problems Problem Noted Date TERMINATED MEDICATION [...] as of this encounter (statuses as of 04/08/2023) Resolved Problems Problem Noted Date Resolved Date [...] as of this encounter (statuses as of 04/08/2023) Immunizations Name Administration Dates Next Due COVID-19 mRNA, LNP-s, No Pre serve, 2-Dose Series (Mocapay) 08/12/2021,12/08/2020,11/12/2020 Hepatitis B, 20+ yrs 09/20/2014,02/09/20 14,01/26/2014(Defer red: Patient Refused) Pneumococcal Conjugate Vacci ne, 20-valent ([id number]) 05/13/2022 Pneumococcal Polysaccharide PPV23 (Pneumovax) 05/18/2012 Seasonal [...] Progress Notes * Neeru Venegas RN - 04/08/2023 9:24 AM EDT CM Call for IMANI week 3 follow up: Pt reports she feels she is doing well. She does, however, continue to have back pain around her kidneys. She denies any dark urine, pain with urination, fevers or chills. She was sleeping when this CM called so the conversation was brief. Encouraged pt to call if any symptoms develop. documented in this encounter Plan of Treatment Upcoming Encounters Date Type Specialty Care Team Description 04/25/2023 Office Visit Family Medicine Haley Alan, [address] [place] [address] 05/03/2023 Office Visit Pharmacy Pharmacist1, [facility] [address] [place] [address] 05/05/2023 Procedure Only Endoscopy Mary Levi MD [address] [place] [address] 06/03/2023 Office Visit Family Medicine Haley Alan, DO [address] [place] [address] 06/10/2023 Office Visit Pulmonary Jesse Blount, DO [address] [place], [place] [id number] Health Maintenance Due Date Last Done Comments [...] 05/18/2012 LUNG CANCER SCREENING - USE SMARTSET [id number] Completed 12/08/2022, 11/25/2021 GARDASIL-HPV IMMUNIZATION SERIES Aged Out No longer eligible based on patient's age to complete this topic MENINGOCOCCAL (MENACTRA/MENVEO) Aged Out No longer eligible based on patient's age to complete this topic documented as of this encounter Medical Devices Implanted Type Area Doctor Osteopathic Device Identifier Shelf Expiration Date Model / Serial / Lot 7mm Lord Acis Cage Implanted:Qty: 2 on 12/29/2012 at [place] [facility] [place] N/A: Spine Cervical JNJ : DEPUY SPINE [...] Other - (no specific identity) Health Care Interventional Radiology Technologist (appointed verbally by patient or by statute hierarchy) Care Teams Tree Planter Relationship Specialty Start Date End Date Haley Alan, DO [address] [place] [address] PCP - General Family Medicine 03/04/17 documented as of this encounter
--- OUTSIDE RECORDS SUMMARY | 2023-08-06 04:05 | External Medical Summary | Summary of Care ---
Author Name Unknown Organization [facility] Address [address] [place] [address] Phone [phone] Care Team Providers Care Patient Admitting Clerk Name Role Phone Dayanna Haley Deally Primary Care Provider Reason for Visit * Reason Comments case management Encounter Details Date Type Department Care Team Description 04/01/2023 Hvac JourneymanCook Restaurant Internal Medicine [facility] [place] [address] [place] [address] Helga Jenkins, RN [address] [place] [address] Medical home patient encounter* Allergies Active Allergy Reactions Severity Noted Date Comments Empagliflozin Diarrhea,Other (Please comment) 12/04/2020 Uncontrollable dizziness Shellfish-Derived Products Edema airway High 05/05/2020 documented as of this encounter (statuses as of 04/01/2023) Medications Medication Sig Dispensed Refills Start Date [...] as of this encounter (statuses as of 04/01/2023) Active Problems Problem Noted Date TERMINATED MEDICATION USAGE AGREEMENT Overview: As of 12/22/2022, 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 Food insecurity 05/31/2022 Overview: Per [facility] Protocol S/P cervical spinal fusion [...] as of this encounter (statuses as of 04/01/2023) Resolved Problems Problem Noted Date Resolved Date [...] as of this encounter (statuses as of 04/01/2023) Immunizations Name Administration Dates Next Due COVID-19 mRNA, LNP-s, No Pre serve, 2-Dose Series (Chobani) 08/12/2021,12/08/2020,11/12/2020 Hepatitis B, 20+ yrs 09/20/2014,02/09/20 14,01/26/2014(Defer red: Patient Refused) Pneumococcal Conjugate Vacci ne, 20-valent ([id number]) 05/13/2022 Pneumococcal Polysaccharide PPV23 (Pneumovax) 05/18/2012 Seasonal [...] Progress Notes * Helga Jenkins RN - 04/01/2023 12:10 PM EDT SITUATION: [facility] Tier 2 follow up IMANI BACKGROUND: [facility] 03/08-03/12 Sepsis r/t UTI/pyelonephritis ASSESSMENT: Feeling pretty good today-"just the usual medical problems" and "running to the bathroom". Denies any worsening urinary symptoms at present time. Has been doing her "injections" in her legs recently instead of her stomach to see if this helps with her pain in her side. FBS today was 150. Still having intermittent cough w/ jenkins sputum-occasionally notes "black" specks in it. Wearing oxygen at 2lpm"off and on"-did encourage to wear continuously as prescribed. Discussed upcoming appointments-requesting to cancel colonoscopy and complete cologuard testing instead. Reviewed red flags: urinary symptoms, shortness of breath/coughing, fever. RECOMMENDATION: Will send message to PCP regarding colonoscopy. Advised to report any worsening symptoms to PCP. Will plan to follow up in one week. Helga Jenkins RN General Internal Medicine [facility] 200 [facility] [address] documented in this encounter Plan of Treatment Upcoming Encounters Date Type Specialty Care Team Description 04/25/2023 Office Visit Family Medicine Haley Alan, DO [address] [facility] [place] [address] 05/03/2023 Office Visit Pharmacy Pharmacist1, [facility] 200 [facility] [place] [address] 05/05/2023 Procedure Only Endoscopy Mary Levi MD [address] [place] [address] 06/03/2023 Office Visit Family Medicine Haley Alan, DO 200 [facility] [place] [address] 06/10/2023 Office Visit Pulmonary Jesse Blount, DO [address] [place] [address] Health Maintenance Due Date Last Done Comments [...] 05/18/2012 LUNG CANCER SCREENING - USE SMARTSET [id number] Completed 12/08/2022, 11/25/2021 GARDASIL-HPV IMMUNIZATION SERIES Aged Out No longer eligible based on patient's age to complete this topic MENINGOCOCCAL (MENACTRA/MENVEO) Aged Out No longer eligible based on patient's age to complete this topic documented as of this encounter Medical Devices Implanted Type Area Pvc Monitor Device Identifier Shelf Expiration Date Model / Serial / Lot 7mm Lord Acis Cage Implanted:Qty: 2 on 12/29/2012 at OR [facility] [place] N/A: Spine Cervical JNJ : DEPUY [...] Other - (no specific identity) Health Care Roller Man (appointed verbally by patient or by statute hierarchy) Care Teams Patient Admitting Clerk Relationship Specialty Start Date End Date Haley Alan DO 200 [place] [address] PCP - General Family Medicine 03/04/17 documented as of this encounter
--- OUTSIDE RECORDS SUMMARY | 2023-08-06 04:06 | External Medical Summary | Summary of Care ---
Author Name Unknown Organization [facility] Address [address] [place] [address] Phone [phone] Care Team Providers Care Instructional Services Specialist Name Role Phone Wes Alan DO Primary Care Provider Reason for Visit * Reason Comments eRx-Medication Refill Encounter Details Date Type Department Care Team Description 02/24/2023 Refill Family Practice [facility] [place] [address] [facility] [place] [id number] Wes Alan DO [address] [facility] [place] [phone] Wallace's esophagus with low grade dysplasia Allergies Active Allergy Reactions Severity Noted Date Comments Empagliflozin Diarrhea,Other (Please comment) 12/04/2020 Uncontrollable dizziness Shellfish-Derived Products Edema airway High 05/05/2020 documented as of this encounter (statuses as of 02/25/2023) Medications Medication Sig Dispensed Refills Start Date End Date Status ASPIRIN 81 MG PO TABS Take 81 mg by mouth at bedtime. 0 Active ibuprofen (MOTRIN) 200 MG Tablet Take 200 mg by mouth as needed. 0 Active FreeStyle Boy 2 Sensor Use as directed. Use as directed every 14 days 2 Each 11 1 Active Diapers & SuppliesIndicatio ns:Mixed incontinence urge and stress (male)(female) Use as needed for incontinence 90 Each 3 2 Active Ventolin HFA 108 (90 Base) MCG/ACT Inhalation Aerosol SolutionIndicatio ns:Bacterial pneumonia INHALE 2 PUFFS BY MOUTH EVERY 4 HOURS NEEDED FOR COUGH. 36 g 1 3 Active Loperamide HCl 2 MG Oral Capsule (Imodium)Indicati ons:Chronic diarrhea TAKE 1 CAPSULE BY MOUTH TWICE A DAY NEEDED 60 Capsule 3 3 Active Insulin Lispro (1 Unit Dial) 100 UNIT/ML Subcutaneous Solution Pen-injector (HumaLOG KwikPen)Indicatio ns:Type 2 diabetes mellitus with hemoglobin A1c goal of less than or equal to 9.0% (HCC) INJECT 11 UNITS SUBQ WITH BREAKFAST, 11UNITS WITH LUNCH, 14 UNITS WITH DINNER, PLUS CORRECTION CHART (MAX 50 UNITS DAILY) 45 mL 3 3 Active Insulin Glargine Solostar 100 UNIT/ML Subcutaneous Solution Pen-injector (Lantus SoloStar)Indicati ons:Type 2 diabetes mellitus with hemoglobin A1c goal of less than or equal to 9.0% (HCC) Inject 44 Units under the skin in the morning. 45 mL 3 3 Active Atorvastatin Calcium 40 MG Oral Tablet (Lipitor)Indicati ons:Mixed dyslipidemia TAKE 1 TABLET BY MOUTH EVERY DAY 90 Tablet 3 3 Active Omeprazole 40 MG Oral Capsule Delayed Release (PriLOSEC)Indicat ions:Wallace's esophagus with low grade dysplasia TAKE 1 CAPSULE BY MOUTH IN THE MORNING AND BEFORE BEDTIME 180 Capsule 1 3 Active BD Pen Needle Bre 2nd Gen 32G X 4 MM (Insulin Pen Needle) USE 4 TIMES DAILY FOR INSULIN INJECTION 400 Each 3 3 Active BD Pen Needle Bre 2nd Gen 32G X 4 MM (Insulin Pen Needle) USE 4 TIMES DAILY FOR INSULIN INJECTION 400 Each 3 2 02/26/20 23 Discontinued Omeprazole 40 MG Oral Capsule Delayed Release (PriLOSEC)Indicat ions:Wallace's esophagus with low grade dysplasia TAKE 1 CAPSULE BY MOUTH IN THE MORNING AND 1 CAPSULE BEFORE BEDTIME 180 Capsule 1 2 02/26/20 23 Discontinued documented as of this encounter (statuses as of 02/25/2023) Active Problems Problem Noted Date TERMINATED MEDICATION USAGE AGREEMENT Overview: As of 12/22/2022, 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 Food insecurity 05/31/2022 Overview: Per [facility] Protocol S/P cervical spinal fusion [...] as of this encounter (statuses as of 02/25/2023) Resolved Problems Problem Noted Date Resolved Date [...] as of this encounter (statuses as of 02/25/2023) Immunizations Name Administration Dates Next Due COVID-19 mRNA, LNP-s, No Pre serve, 2-Dose Series (Pfizer) 08/12/2021,12/08/2020,11/12/2020 Hepatitis B, 20+ yrs 09/20/2014,02/09/20 14,01/26/2014(Defer red: Patient Refused) Pneumococcal Conjugate Vacci ne, 20-valent ([id number]) 05/13/2022 Pneumococcal Polysaccharide PPV23 (Pneumovax) 05/18/2012 Seasonal [...] encounter Miscellaneous Notes * Telephone Encounter - Leon Leung RPh - 02/25/2023 5:15 PM EDTSigned Prescriptions: Disp Refills Omeprazole 40 MG Oral Capsule Delayed Rele*180 Ca*1 Sig: TAKE 1 CAPSULE BY MOUTH IN THE MORNING AND BEFORE BEDTIMEAuthorizing Provider: WES ALAN User: LEON LEUNG BD Pen Needle Bre 2nd Gen 32G X 4 MM (Ins*400 Ea*3 Sig: USE 4 TIMES DAILY FOR INSULIN INJECTIONAuthorizing Provider: WES ALAN User: LEON LEUNG documented in this encounter Plan of Treatment Upcoming Encounters Date Type Specialty Care Team Description 03/01/2023 Office Visit Pharmacy Pharmacist1, [facility] [address] [facility] [id number] 05/05/2023 Procedure Only Endoscopy Mary Levi MD [address] [place] [id number] 06/03/2023 Office Visit Family Medicine Wes Alan, DO 200 [facility] [place] [address] Health Maintenance Due Date Last Done Comments Alpha-1 Antitrypsin 1977 Cologuard 2004 Fecal Occult Blood Test 2004 Sigmoidoscopy 2004 Hepatitis B (3 of 3 - 19+ 3-dose series) 02/18/2015 09/20/2014, 02/08/2014 DISCUSS TOBACCO CESSATION (REFER TO SMARTSET #3291) 08/15/2016 08/15/2015 Depression Screening, Annual for Pts 12 and Over 10/21/2018 10/21/2017 COVID-19 Vaccine (4 - Booster for Pfizer series) 10/07/2021 08/12/2021, 12/08/2020, 11/12/2020 DIABETES-EYE EXAM 06/02/2022 06/02/2021, , 12/13/2018, Additional history exists Colonoscopy 07/26/2022 07/26/2012, 03/2012, 04/15/2005, Additional history exists Colorectal Cancer Screening 07/26/2022 Mammogram 11/25/2022 11/25/2021, 04/20, 01/23/2019, Additional history exists DIABETES-FOOT EXAM 05/13/2023 05/13/2022, 0 05/07/2021, 05/05/2020, Additional history exists GFR 05/13/2023 05/13/2022, 10/21, 04/13/2021, Additional history exists HbA1c 05/15/2023 11/15/2022, 04/20, 11/10/2021, Additional history exists O2 ASSESSMENT COMPLETED IN PAST YEAR FOR COPD 07/08/2023 07/08/2022 Albumin/Creatinine Ratio 11/15/2023 023, 07/30/2021, 04/23/2020, Additional [...] exists LUNG CANCER SCREENING - USE SMARTSET 87699 Completed 12/08/2022, 11/25/2021 GARDASIL-HPV IMMUNIZATION SERIES Aged Out No longer eligible based on patient's age to complete this topic MENINGOCOCCAL (MENACTRA/MENVEO) Aged Out No longer eligible based on patient's age to complete this topic documented as of this encounter Medical Devices Implanted Type Area Coal Pipeline Operator Device Identifier Shelf Expiration Date Model / Serial / Lot 7mm Lord Acis Cage Implanted:Qty: 2 on 12/29/2012 at OR [facility] N/A: Spine Cervical JNJ : DEPUY SPINE [id number] / / documented as of this encounter Visit Diagnoses Diagnosis Wallace's esophagus with low grade dysplasia Wallace's esophagus documented in this encounter Advance Directives Latest [...] Other - (no specific identity) Health Care Pharmaceutical Laboratory Technician (appointed verbally by patient or by statute hierarchy) Care Teams Instructional Services Specialist Relationship Specialty Start Date End Date Wes Alan, [address] [place] [address] PCP - General Family Medicine 03/04/17 documented as of this encounter
--- OUTSIDE RECORDS SUMMARY | 2023-08-06 04:06 | External Medical Summary ---
Author Name Unknown Address Unknown Organization K09:[facility] [place] [id number] Laboratory Report Ordering Provider Test Date Status GORANPHARMACIST1 03/01/2023 09:32:44 Final Observation Date Value Abnormality Reference (Units ) Status HbA1C 03/01/2023 09:32:44 8.5 Above high normal 4. 0-5.6 (%) Final Performing Location [facility] [id number]
--- OUTSIDE RECORDS SUMMARY | 2023-08-06 04:06 | External Medical Summary | Summary of Care ---
Author Name Unknown Organization [facility] Address [address] [place] [address] Phone [phone] Care Team Providers Care Planer Setup Operator Name Role Phone Dayanna Haley Miller DO Primary Care Provider Reason for Visit * Reason Comments Diabetes Follow-Up Dosage Adjustment In Person (Anticoag Cl inic) Encounter Details Date Type Department Care Team Description 03/01/2023 Office Visit Pharmacy, [facility] [place] [address] [place] [address] Pharmacist1, [facility] [address] [facility] [place] [phone] Type 2 diabetes mellitus with hemoglobin A1c goal of less than or equal to 9.0% ([facility])* Allergies Active Allergy Reactions Severity Noted Date Comments Empagliflozin Diarrhea,Other (Please comment) 12/04/2020 Uncontrollable dizziness Shellfish-Derived Products Edema airway High 05/05/2020 documented as of this encounter (statuses as of 03/01/2023) Medications Medication Sig Dispensed Refills Start Date [...] as of this encounter (statuses as of 03/01/2023) Active Problems Problem Noted Date TERMINATED MEDICATION [...] as of this encounter (statuses as of 03/01/2023) Resolved Problems Problem Noted Date Resolved Date [...] as of this encounter (statuses as of 03/01/2023) Immunizations Name Administration Dates Next Due COVID-19 mRNA, LNP-s, No Pre serve, 2-Dose Series (Smartsheet) 08/12/2021,12/08/2020,11/12/2020 Hepatitis B, 20+ yrs 09/20/2014,02/09/20 14,01/26/2014(Defer red: Patient Refused) Pneumococcal Conjugate Vacci ne, 20-valent ([id number]) 05/13/2022 Pneumococcal Polysaccharide PPV23 (Pneumovax) 05/18/2012 Seasonal [...] encounter Progress Notes * Hugo Toribio V, [facility] - 03/01/2023 9:59 AM EDT Images from the original note were not included. Medication Therapy Disease Management Clinic - Diabetes Management Progress Note Jennifer Rivas, identified by name and date of , is a 62 year old female being seen for diabetes management/education. Patient presents for return diabetic visit. DIABETES: Current diabetic medications: Humalog 14units before breakfast,12units before lunch, 10units before dinner+ CF 1:30 over 150 at meals only (gave sheet) INCREASE:[id number] daily in the morning Medication Injection Site: Abdomen Lifestyle: Diet: unchanged History of Treatment Barriers: Lifestyle: None Therapy considerations: None Medication: Jardiance (diarrhea, dizziness), Metformin (diarrhea)Trulicity (severe nausea/diarrhea) Glucose Review/SMBG: Readings obtained from patient device Hypoglycemia: Does your blood sugar go below 70 mg/dL? Yes, treats with Pepsi Hyperglycemia symptoms present: none Goal <9 Recent Labs Units 03/01/23 0932 11/15/22 0930 [...] indicated BP Readings from Last 3 Encounters: 11/18/22 124/66 07/08/22 124/74 05/26/22 105/68 Blood pressure at goal: yes HYPERLIPIDEMIA: Patient is taking moderate or high intensity statin: yes HEALTH MAINTENANCE REVIEW: Health Maintenance Due Topic Date Due Alpha-1 Antitrypsin Never done Hepatitis B (3 of 3 - 19+ 3-dose series) 11/15/2014 DISCUSS TOBACCO CESSATION (REFER TO SMARTSET #7548) 08/15/2016 Depression Screening, Annual for Pts 12 and Over 10/21/2018 COVID-19 Vaccine (4 - Pfizer series) 10/07/2021 DIABETES-EYE EXAM 06/02/2022 Colorectal Cancer Screening 07/26/2022 Mammogram 11/25/2022 DIABETES-FOOT EXAM 05/13/2023 ASSESSMENT & PLAN: ICD-10-CM 1. Type 2 diabetes mellitus with hemoglobin A1c goal of less than or equal to 9.0% (HCC) E11.9 BG Readings - Blood sugars controlled. A1C 8.5 today. Medications - Reviewed current regimen, patient is adherent to regimen. Suggested a higher dose of Lantus but patient did not want to increase. Diet, Exercise, Lifestyle - No significant lifestyle changes since last visit. Discussed with patient today. Patient is agreeable to wear Boy 14 CGM. Patient aware to contact clinic if any hypoglycemia before next visit. MEDICATION CHANGES: no change Diabetic Medications: Humalog 14units before breakfast,12units before lunch, 10units before dinner+ CF 1:30 over 150 at meals only (gave sheet) [id number] daily in the morning HEALTH MAINTENANCE INTERVENTIONS: Labs: Up to Date Immunizations: needs 2nd Covid booster, hepatitis B Foot Exam: Up to Date Eye Exam: needs completed Annual Wellness Visit: N/A FOLLOW UP: Return to clinic in 8 weeks 05/03/2023 Hugo Toribio RPh, CDE Clinical Pharmacist - Manufacturing Accountant Medication Therapy Management Clinic 03/01/2023, 10:10 AM documented in this encounter Plan of Treatment Upcoming Encounters Date Type Specialty Care Team Description 05/03/2023 Office Visit Pharmacy Pharmacist1, [facility] [address] [place] [address] 05/05/2023 Procedure Only Endoscopy Mary Levi MD [address] [place] [address] 06/03/2023 Office Visit Family Medicine Haley Alan DO [address] [place] [address] Health Maintenance Due Date Last Done Comments Alpha-1 Antitrypsin 1977 Cologuard 2004 Fecal Occult Blood Test 2004 Sigmoidoscopy 2004 Hepatitis B (3 of 3 - 19+ 3-dose series) 11/15/2014 09/20/2014, 02/08/2014 DISCUSS TOBACCO CESSATION (REFER TO SMARTSET #0448) 08/15/2016 08/15/2015 Depression Screening, Annual for Pts [...] exists LUNG CANCER SCREENING - USE SMARTSET [id number] Completed 12/08/2022, 11/25/2021 GARDASIL-HPV IMMUNIZATION SERIES Aged Out No longer eligible based on patient's age to complete this topic MENINGOCOCCAL (MENACTRA/MENVEO) Aged Out No longer eligible based on patient's age to complete this topic documented as of this encounter Medical Devices Implanted Type Area Circulation Director Device Identifier Shelf Expiration Date Model / Serial / Lot 7mm Lord Acis Cage Implanted:Qty: 2 on 12/29/2012 at [place] [facility] N/A: Spine Cervical JNJ : DEPUY SPINE [id number] / / documented as of this encounter Procedures Procedure Name Priority Date/Time Associated Diagnosis Comments HEMOGLOBIN A1C, POINT OF CARE DEVIN 03/01/2023 9:32 AM EDT documented in this encounter Results * (ABNORMAL) HEMOGLOBIN A1C, POINT OF CARE (03/01/2023 9:32 AM EDT) Hemoglobin A1c 8.5(H) 4.0 - 5.6 % 03/01/2023 10:12 AM EDT [facility] 56-02 Blood 03/01/2023 9:32 AM EDT 03/01/2023 10:12 AM EDT [facility] Pharmacist1 LAB POINT OF C ARE TEST DOCKED DEVICE UNSOLICITED RESULTS [facility] [address] [place] [address] documented in this encounter Visit Diagnoses Diagnosis [...] Other - (no specific identity) Health Care Seed Corn Manager Production (appointed verbally by patient or by statute hierarchy) Care Teams Planer Setup Operator Relationship Specialty Start Date End Date Haley Alan DO [address] [place] [address] PCP - General Family Medicine 03/04/17 documented as of this encounter
[2023-08-06] MEDS: LANTUS PER UNIT CHARGE SQ SCH ×2 (04:50→08:48)
[2023-08-06 07:37] LABS: Hematocrit (blood only) 49.6 % (37.0-47.0); Hemoglobin 16.2 g/dl (12.0-16.0); Mean Corpuscular Hemoglobin 30.7 pg (25.0-34.0); Mean Corpuscular Hgb Conc 32.7 g/dL (32.0-36.0); Mean Corpuscular Volume 94.1 fL (80.0-100.0); Mean Platelet Volume 10.1 fL (9.4-12.4); Platelet Count 327 K/uL (130-400); RDW Coefficient of Variation 12.3 % (11.5-14.5); RDW Standard Deviation 42.7 fL (36.4-46.3); Red Blood Count 5.27 M/uL (4.20-5.40); White Blood Count 14.03 K/ul (4.8-10.8)
[2023-08-06 07:57] LABS: Albumin Level 3.4 gm/dl (3.4-5.0); Bilirubin,Total 0.3 mg/dl (0.2-1.0); Calcium 9.5 mg/dl (8.6-10.3); Magnesium 1.9 mg/dl (1.7-2.4); Potassium 3.9 mmol/L (3.5-5.1)
[2023-08-06] MEDS: IBUPROFEN 200 MG TAB PO PRN ×2 (07:57→16:56)
[2023-08-06 08:03] LABS: BUN Creatinine Ratio 28.8 (10-20); Creatinine Clr Calc Pharmacy 78.4 ml/min; Est GFR (African American) 100.9 ml/min; Globulin 3.5 gm/dl (2.5-4.0); Phosphorus 3.9 mg/dl (2.5-4.9); Total Protein 6.9 gm/dl (6.0-8.3)
[2023-08-06 08:08] LABS: Basophils # (auto) 0.06 K/uL (0.00-0.20); Basophils % (auto) 0.4 %; Eosinophils # (auto) 0.09 K/uL (0.00-0.50); Eosinophils % (auto) 0.6 %; Immature Granulocytes % (auto) 1.4 %; Lymphocytes # (auto) 4.51 K/uL (1.20-3.40); Lymphocytes % (auto) 32.1 %; Monocytes # (auto) 0.85 K/uL (0.11-0.59); Monocytes % (auto) 6.1 %; Neutrophils # (auto) 8.32 K/uL (1.40-6.50); Neutrophils % (auto) 59.4 %
[2023-08-06] MEDS: INSULIN ASPART PER UNIT CHARGE SC SCH ×4 (08:47→20:47)
[2023-08-06] MEDS: predniSONE 20 MG TAB PO SCH (08:51)
[2023-08-06] MEDS: NICOTINE 7 MG/24 HR TDSY TD SCH (08:51)
[2023-08-06] MEDS: PANTOprazole 40 MG TAB PO SCH ×2 (08:52→20:47)
[2023-08-06] MEDS: guaiFENesin 600 MG TABCR PO SCH ×2 (08:52→20:47)
[2023-08-06] MEDS: AZITHROMYCIN 250 MG TAB PO SCH (08:52)
[2023-08-06] MEDS: ATORVASTATIN 40 MG TAB PO SCH (08:52)
[2023-08-06] MEDS: ASPIRIN 81 MG ECTAB PO SCH (08:52)
[2023-08-06] MEDS: UMECLIDINIUM/VILANTEROL 62.5/25MCG 7 PUFFS/INHALER INH SCH (08:53)
[2023-08-06] MEDS: FLUTICASONE PROPIONATE NA SPR 16 GM BTL SCH (08:53)
[2023-08-06] MEDS: cefTRIAXone SODIUM 2,000 MG in DEXTROSE 5 % MINI-B 50 ML IV SCH (12:30)
[2023-08-06] MEDS: CYCLOBENZAPRINE HCL 10 MG TAB PO PRN (13:08)
--- NOTE | 2023-08-06 14:50 | Hospitalist Progress Note ---
Date of Service August 06, 2023 Assessment & Plan (1) COPD with hypoxia: (2) Acute hypoxic respiratory failure: (3) Type 2 diabetes mellitus without complications: (4) Bronchitis: Plan Ms. Jennifer Rivas is a 63 year old woman with past medical history notable for COPD, HLD, recent acute hypoxic respiratory failure requiring 2L continuous oxygen (discontinued 05/2023) 2/2 bronchitis admitted with acute hypoxic respiratory failure. #Acute Hypoxic Respiratory Failure, possibly multifactorial #Pleuritic Chest Pain, ?lobar pneumonia v PE #Acute COPD Exacerbation iso Centrilobular emphysema -PESI score 94, intermediate risk PERC 3 points -CTA chest with questionable PE changes, infection and noted pulmonary HTN UA unremarkable, urine and blood Cx with NGTD, biofire negative -Continue Prednisone burst x 5 days -Continue azithromycin and rocephin -Continue Albuterol inhaler prn and duonebs prn -Continue LABA/LAMA -Symptoms control: guaifenesin scheduled q12, Robitussin prn, Tylenol prn -Flutter valve -Pulmonology consult, appreciate recs Pulmonary HTN -Follow echo #Postnasal drip -Start Flonase daily #Tobacco Use #Secondary polycythemia -likely secondary to chronic hypoxia/ongoing tobacco use -Continue daily asa -Continue nicotine patch, smoking cessation encouraged #Diabetes Mellitus -Home lantus 44 U and sliding scale -Continue above -A1C in am #HLD -Continue ASA and statin #GERD -Home Protonix BID Diet: DMII DVT prophylaxis: lovenox Dispo: PT/OT ordered- still waiting to be seen, will need 2 step Admission and Anticipated Discharge Date Admission Date: August 04, 2023 Subjective Pt seen in the AM. Notes that she has been having muscle spasms. otherwise denied acute concerns. Review of Systems Review of Systems: All systems reviewed & are unremarkable except as noted in Subjective Physical Exam Physical Exam: General: Alert, oriented. No acute distress Skin: No noted rashes or bruises Psych: Appropriate mood and affect Neuro: No gross deficits HEENT: NC/AT Chest: Nontender to palpation. CV: RRR, Normal s1, s2. No murmurs appreciated Resp: Breath sounds decreased bilaterally, no increased effort of breathing. Abdomen: Soft, nontender, nondistended. Extremities: No edema in lower extremities bilaterally. MSK- tenser to palpation right flank Results & Data Results & Data Vital Signs (Past 12 Hours) Vital Signs Temp Pulse Resp BP Pulse Ox O2 Del Method O2 Flow Rate 08/06/23 08:00 Nasal Cannula 3 08/06/23 07:43 37.0 C 60 18 147/75 H 96 Nasal Cannula 3
--- NOTE | 2023-08-06 16:10 | Pulmonology Progress Note ---
Date of Service August 06, 2023 Assessment & Plan (1) Acute hypoxic respiratory failure: (2) COPD with hypoxia: (3) Tobacco abuse: (4) HELEN (obstructive sleep apnea): (5) Pulmonary hypertension: Plan 63 year old female active smoker, with COPD, HELEN, DM who presents with cough and shortness of breath. 1. COPDD exacerbation - agree with steroids and empiric ceftriaxone and azithromycin. Follow up cultures. nebs PRN. 2. pulmonary infiltrate - LLL peripheral somewhat wedge shaped infiltrate is somewhat atypical for pneumonia. Complete antibiotics and follow up repeat imaging as outpatient. 3. probable chronic PE - radiology report noted a linear nonocclusive filling defect in RLL segmental pulmonary artery. For workup of potential CTEPH, will check vq scan. 4. pulmonary hypertension - Echo showed elevated PASP 40mmHg / mild LVH / EF 60- 65%. Etiology likely multifactorial, patient has COPD and is an active smoker, as well as untreated HELEN. Outpatient pulmonary follow up. 5. HELEN - Patient tried CPAP and did not like it. we discussed the indication for treatment and treatment options. Admission and Anticipated Discharge Date Admission Date: August 04, 2023 Subjective back pain. breathing a little better. Physical Exam Constitutional: well developed and + obese Respiratory: normal respiratory effort, lungs clear to auscultation normal respiratory effort Cardiovascular: Rate/Rhythm: regular rate and regular rhythm Skin: no rashes, warm and dry Neurologic: CN's II-XI intact bilaterally Psychiatric: A+Ox3, euthymic affect Results & Data Results & Data Vital Signs (Past 12 Hours) Vital Signs Temp Pulse Resp BP Pulse Ox O2 Del Method O2 Flow Rate 08/06/23 08:00 Nasal Cannula 3 08/06/23 07:43 37.0 C 60 18 147/75 H 96 Nasal Cannula 3 PG Care Time/CCT Total # of Minutes Spent Total Time Spent with Patient: Total time spent is greater than 50% in coordination of care (as documented) at patient's floor/unit and/or counseling patient: Coding Level of Care Code 15049 SUB INP/OBS CARE 2/35MIN Diagnoses Acute hypoxic respiratory failure J96.01 COPD with hypoxia J44.9 Tobacco abuse Z72.0 HELEN (obstructive sleep apnea) G47.33 Pulmonary hypertension I27.20
[2023-08-06] MEDS: ENOXAPARIN INJ 40 MG/0.4 ML SYR SQ SCH (16:53)
[2023-08-07 07:15] LABS: Basophils # (auto) 0.05 K/uL (0.00-0.20); Basophils % (auto) 0.4 %; Eosinophils # (auto) 0.09 K/uL (0.00-0.50); Eosinophils % (auto) 0.7 %; Hemoglobin 16.1 g/dl (12.0-16.0); Immature Granulocytes # (auto) 0.06 K/uL (0.01-0.20); Immature Granulocytes % (auto) 0.4 %; Lymphocytes # (auto) 4.93 K/uL (1.20-3.40); Lymphocytes % (auto) 35.6 %; Mean Corpuscular Hemoglobin 30.7 pg (25.0-34.0); Mean Corpuscular Hgb Conc 32.9 g/dL (32.0-36.0); Mean Corpuscular Volume 93.5 fL (80.0-100.0); Mean Platelet Volume 10.3 fL (9.4-12.4); Monocytes # (auto) 0.87 K/uL (0.11-0.59); Monocytes % (auto) 6.3 %; Neutrophils # (auto) 7.83 K/uL (1.40-6.50); Neutrophils % (auto) 56.6 %; Platelet Count 336 K/uL (130-400); RDW Coefficient of Variation 12.5 % (11.5-14.5); RDW Standard Deviation 43.3 fL (36.4-46.3); Red Blood Count 5.24 M/uL (4.20-5.40); White Blood Count 13.83 K/ul (4.8-10.8)
[2023-08-07 07:43] LABS: Albumin Level 3.5 gm/dl (3.4-5.0); BUN Creatinine Ratio 36.4 (10-20); Bilirubin,Total 0.3 mg/dl (0.2-1.0); Calcium 9.3 mg/dl (8.6-10.3); Creatinine Clr Calc Pharmacy 86.7 ml/min; Est GFR (African American) 108.2 ml/min; Est GFR (Non-African American) 93.4 ml/min; Globulin 3.4 gm/dl (2.5-4.0); Phosphorus 3.9 mg/dl (2.5-4.9); Potassium 3.9 mmol/L (3.5-5.1); Total Protein 6.9 gm/dl (6.0-8.3)
[2023-08-07] MEDS: CYCLOBENZAPRINE HCL 10 MG TAB PO PRN (08:21)
[2023-08-07] MEDS: IBUPROFEN 200 MG TAB PO PRN (08:21)
[2023-08-07] MEDS: LANTUS PER UNIT CHARGE SQ SCH (08:52)
[2023-08-07] MEDS: INSULIN ASPART PER UNIT CHARGE SC SCH ×2 (08:52→12:59)
[2023-08-07] MEDS: guaiFENesin 600 MG TABCR PO SCH (08:55)
[2023-08-07] MEDS: ATORVASTATIN 40 MG TAB PO SCH (08:55)
[2023-08-07] MEDS: predniSONE 20 MG TAB PO SCH (08:55)
[2023-08-07] MEDS: PANTOprazole 40 MG TAB PO SCH (08:55)
[2023-08-07] MEDS: NICOTINE 7 MG/24 HR TDSY TD SCH (08:55)
[2023-08-07] MEDS: ASPIRIN 81 MG ECTAB PO SCH (08:55)
[2023-08-07] MEDS: AZITHROMYCIN 250 MG TAB PO SCH (08:55)
[2023-08-07] MEDS: FLUTICASONE PROPIONATE NA SPR 16 GM BTL SCH (08:56)
[2023-08-07] MEDS: UMECLIDINIUM/VILANTEROL 62.5/25MCG 7 PUFFS/INHALER INH SCH (08:56)
[2023-08-07] MEDS: cefTRIAXone SODIUM 2,000 MG in DEXTROSE 5 % MINI-B 50 ML IV SCH (12:59)
--- NOTE | 2023-08-07 13:50 | Discharge Summary ---
Discharge Summary Date of Service August 07, 2023 Admission HPI Per Admitting Provider Ms. Jennifer Rivas is a 63 year old woman with past medical history notable for COPD, HLD, recent acute hypoxic respiratory failure requiring 2L continuous oxygen (discontinued 05/2023) 2/2 bronchitis, who presented to [facility] ED due to 2 weeks of upper respiratory concerns, now with left side pain/discomfort. She states that initially her symptoms felt like sinus congestion, noting copious drainage. She states her symptoms then appeared to settle in her chest in the last week with increased cough, sputum production, and wheezing/chest tightness prompting albuterol use (about 5 times this last week). She endorses fevers up to 101 at home, denies nausea, vomiting. She reports chronic diarrhea for which she uses loperamide. She states she hasn't tried anything for symptom control at this time. Of note she was recently admitted 02/2023 for acute hypoxic respiratory failure and sepsis 2/2 e coli pyelonephritis/bacteriemia. She was discharged on 2L oxygen, but eventually taken off of oxygen in 05/2023. She notes that she has moments were she quits smoking, but it is challenging and often she returns to smoking 0.5-1 ppd in times of stress. She has not smoked for 1 week given cough/sputum production. In the ED, vitals were notable for BP in 110s-140s, HR mostly in 80s, and O2 sat of 88% prompting use of NC at 2L with sats in low 90s.. Imaging revealed EKG NSR, with RAD ED interventions: Azithro, CTX, albuterol Patient to be admitted to med/surg for further evaluation and management of acute hypoxic respiratory failure. Principal Dx & Hospital Course #1 = Principal Diagnosis (1) COPD with hypoxia: (2) Acute hypoxic respiratory failure: (3) Type 2 diabetes mellitus without complications: (4) Bronchitis: Plan Ms. Jennifer Rivas is a 63 year old woman with past medical history notable for COPD, HLD, recent acute hypoxic respiratory failure requiring 2L continuous oxygen (discontinued 05/2023) 2/2 bronchitis admitted with acute hypoxic respiratory failure. #Acute Hypoxic Respiratory Failure, possibly multifactorial #Pleuritic Chest Pain, ?lobar pneumonia v PE #Acute COPD Exacerbation iso Centrilobular emphysema -PESI score 94, intermediate risk PERC 3 points -CTA chest with questionable PE changes, infection and noted pulmonary HTN UA unremarkable, urine and blood Cx with NGTD, biofire negative -Continue Prednisone burst x 5 days -Continue azithromycin and rocephin -Continue Albuterol inhaler prn and duonebs prn -Continue LABA/LAMA -Symptoms control: guaifenesin scheduled q12, Robitussin prn, Tylenol prn -Flutter valve -Pulmonology consult, appreciate recs Pulmonary HTN -Follow echo #Postnasal drip -Start Flonase daily #Tobacco Use #Secondary polycythemia -likely secondary to chronic hypoxia/ongoing tobacco use -Continue daily asa -Continue nicotine patch, smoking cessation encouraged #Diabetes Mellitus -Home lantus 44 U and sliding scale -Continue above -A1C in am #HLD -Continue ASA and statin #GERD -Home Protonix BID Diet: DMII DVT prophylaxis: lovenox Dispo: PT/OT ordered- still waiting to be seen, will need 2 step Discharge Exam General: Alert, oriented. No acute distress Skin: No noted rashes or bruises Psych: Appropriate mood and affect Neuro: No gross deficits HEENT: NC/AT Chest: Nontender to palpation. CV: RRR, Normal s1, s2. No murmurs appreciated Resp: Breath sounds decreased bilaterally, no increased effort of breathing. Abdomen: Soft, nontender, nondistended. Extremities: No edema in lower extremities bilaterally. MSK- tenser to palpation right flank Updated Medication List Medication Instructions Recorded Confirmed Type albuterol sulfate 90 mcg/actuation 2 puff inhalation UD PRN Shortness 04/05/19 08/04/23 History aerosol inhaler (Ventolin HFA) Of Breath atorvastatin 40 mg tablet 40 mg PO QAM 04/05/19 08/04/23 History insulin glargine 100 unit/mL 44 unit subcut QAM 04/05/19 08/04/23 History subcutaneous solution (Lantus U-100 Insulin) insulin lispro 100 unit/mL 1 sliding scale dose subcut 04/05/19 08/04/23 History subcutaneous cartridge (Humalog USEASDIRECTD U-100 Insulin) loperamide 2 mg capsule 2 mg PO UD PRN Diarrhea 04/13/21 08/04/23 History aspirin 81 mg tablet,delayed 81 mg PO QAM 02/19/22 08/04/23 History release omeprazole 40 mg capsule,delayed 40 mg PO BID 01/05/23 08/04/23 History release nicotine 7 mg/24 hr daily 7 mg transdermal QAM #60 ea 03/12/23 08/04/23 Rx transdermal patch Hospital Stay Data Consultations 08/04/23 10:40 ED Decision to Admit Stat 08/05/23 08:19 Consult Pulmonology Routine Diagnostic Imagining Performed 08/04/23 11:05 CTA chest w con [CT angio chest w con] Stat
== END 2023-08-07 13:20 | disposition home or self-care (01) | DRG 190 ==
LOC: ED 08:37 → EDINP 11:05 → SUATTDRO 11:05 → 3W 12:42